=== PATIENT | female | born 1955 | race Caucasian/White ===

== ENCOUNTER 2025-03-23 08:54 | Outpatient (OUT) | payer MEDICARE, SELFPAY ==
--- OUTSIDE RECORDS SUMMARY | 2025-03-23 09:06 | XMS_ITS | Encounter Summary ---
Author Organization [facility] Address [address] [facility] [place] [address] Phone Care Team Providers Care Fiberglass Laminator Name Role Phone Generic Provider, No Assigned Pcp Primary Car e Provider Unavailable Reason for Visit * Reason Comments Med Change Request Encounter Details Date Type Department Care Team (Late st Contact Info) Description 02/25/2025 Refill [facility] [address] [address] [place] [id number] [place] [address] [place], [place] [id number] Renal cell cancer, right (Multi) Social History Tobacco Use Types Packs/Day Years Used Date Smoking Tobacco: Never Smokeless Tobacco: Never Alcohol Use Standard Drinks/Week Comments Not Currently 0 (1 standard drink = 0.6 oz pur e alcohol) [facility] Utilities Answer Date Recorded In the past 12 months has e electric, gas, oil, or water company threatened to shut off services in your home? No 12/19/2024 Humiliation, Afraid, Rape, and Kick questionnair e Answer Date Recorded Within the last year, have y ou been afraid of your partner or ex-partner? No 12/19/2024 Within the last year, have y ou been humiliated or emotionally abused in other ways by your partner or ex-partner? No Within the last year, have y ou been kicked, hit, slapped, or otherwise physically hurt by your partner or ex-partner? No 12/19/2024 Within the last year, have y ou been raped or forced to have any kind of sexual activity by your partner or ex-partner? No 12/19/2024 AUDIT-C Answer Date Recorded Q1: How often do you have a drink containing alcohol? Never 12/18/2024 Q2: How many drinks containi ng alcohol do you have on a typical day when you are drinking? Patient does not drink Q3: How often do you have si x or more drinks on one occasion? Never 12/18/2024 Overall Financial Resource Strain (CARDIA) Answe r Date Recorded How hard is it for you to pa y for the very basics like food, housing, medical care, and heating? Not hard at all 01/28/2025 PHQ-2 Answer Date Recorded Patient Health Questionnaire-2 Score 0 12/18/2024 Hunger Vital Sign Answer Date Recorded Within the past 12 months, y ou worried that your food would run out before you got the money to buy more. Never true 12/20/19 25 Within the past 12 months, t he food you bought just didn't last and you didn't have money to get more. Never true 12/19/2024 PRAPARE - Transportation Answer Date Re corded In the past 12 months, has l ack of transportation kept you from medical appointments or from getting medications? No 09/2024 In the past 12 months, has l ack of transportation kept you from meetings, work, or from getting things needed for daily living? No 01/28/2025 Housing Stability Vital Sign Answer Ebenezer e Recorded In the last 12 months, was t here a time when you were not able to pay the mortgage or rent on time? No 01/28/2025 In the past 12 months, how m any times have you moved where you were living? 0 01/28/2025 At any time in the past 12 m [facility], were you homeless or living in a fpc (including now)? No 01/28/2025 Comments No Sex and Gender Information Value Date Recorded Sex Assigned at Not on file Legal Sex Female 1:40 PM EDT Gender Identity Not on file Sexual Orientation Not on file COVID-19 Exposure Response Date Recorded In the last 10 days, have yo u been in contact with someone who was confirmed or suspected to have Coronavirus/COVID-19? No / Unsure 02/11/2025 10:51 AM EDT documented as of this encounter Plan of Treatment Not on file documented as of this encounter Visit Diagnoses Diagnosis Renal cell cancer, right (Multi) documented in this encounter Care Teams Fiberglass Laminator Relationship Specialty Start Date End Date Generic Provider, No Assigned [facility] [place] [address] PCP - General Pest Control Service Technician 01/25/25 documented as of this encounter
--- OUTSIDE RECORDS SUMMARY | 2025-03-23 09:06 | XMS_ITS | Clinical Summary ---
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 Take before meals. Do not crush, chew, or split. 30 tablet 11 01/28/20 25 Active acetaminophen (Tylenol) 325 mg tabletIndicati ons:Renal cell cancer, right (Multi) Take 2 tablets (650 mg) by mouth every 6 hours. 02/02/20 25 Active Additional Information Patient not taking.Reported on 02/11/2025 polyethylene glycol (Glycolax, Miralax) 17 gram packetIndicati ons:Renal cell cancer, right (Multi) Take 17 g by mouth once daily. 02/03/20 25 Active Additional Information Patient not taking.Reported on 02/11/2025 sennosides-doc usate sodium (Belen-Colace) 8.6-50 mg tabletIndicati ons:Renal cell cancer, right (Multi) Take 2 tablets by mouth 2 times a day. 02/02/20 25 Active Additional Information Patient not taking.Reported on 02/11/2025 enoxaparin (Lovenox) 40 mg/0.4 mL syringeIndicat ions:Renal cell cancer, right (Multi) Inject 0.4 mL (40 mg) under the skin once daily. 21 each 02/03/20 25 Active multivitamin tablet Take 1 tablet by mouth once daily. Active amLODIPine (Norvasc) 10 mg tabletIndicati ons:Renal cell cancer, right (Multi) TAKE 1 TABLET BY MOUTH ONCE DAILY. DO NOT FILL BEFORE FEBRUARY 03, 2025 90 tablet 1 03/15/20 25 Active amLODIPine (Norvasc) 10 mg tabletIndicati ons:Renal cell cancer, right (Multi) Take 1 tablet (10 mg) by mouth once daily. Do not fill before February 03, 2025. 30 tablet 02/04/20 25 025 Discontinued Active Problems Problem Noted Date Diagnosed Date Renal cell cancer, right (Multi) 01/26/2025 Anemia 01/26/2025 Renal cell carcinoma of right kidney 12/23/2024 HTN (hypertension) 12/21/2024 Hyperlipidemia 12/21/2024 Jaundice 12/18/2024 Encounters Date Type Department Care Team Description 03/11/[address] [facility] [address] [place] [address] Linnette Garcia MD 02/25/[address] [facility] [address] [place] [address] Cooper Hagen MD Renal cell cancer, right (Multi) 02/17/2025 Orders Only [facility] [address] [place] [address] Ivonne Bullock LPN Renal cell carcinoma of right kidney (Primary Dx) 02/11/2025 11:00 AM EDT Office Visit [facility] [address] [facility] [address] [place] [phone] Marvin Lopez MD Renal cell cancer, right (Multi) (Primary Dx) 02/11/2025 Travel 01/26/2025 8:45 PM EDT Office Visit [facility] [address] [place] [address] 01/26/2025 7:25 AM EDT Anesthesia [place] [facility] [place] [address] [place] [address] Debra Thacker MD Chedid, Celine, MD 01/26/2025 6:45 AM EDT - 01/26/2025 3:15 PM EDT [place] [facility] [address] [place] [address] Marvin Lopez MD [facility]ipple Procedure, FALCEFORM FLAP [31634 (CPT )] 01/26/2025 5:03 AM EDT - 02/02/2025 12:51 PM EDT Hospital Encounter [facility] [address] [place] [address] Marvin Lopez MD Renal cell cancer, right (Multi) (Primary Dx); Renal cell carcinoma of right kidney (Multi) Discharge Disposition: Home Health Care - Resumed 01/26/2025 Travel 01/25/2025 7:45 AM EDT Pre-Admission Testing [facility] [address] [place] [address] Preoperative examination (Primary Dx); Renal cell carcinoma, unspecified laterality; Abnormal finding of blood chemistry, unspecified 01/25/2025 Travel 01/05/2025 7:28 AM EDT - 01/05/2025 11:59 PM EDT Hospital Encounter [facility] [address] [place] [address] Renal mass; Renal cell carcinoma of right kidney Discharge Disposition: Home 01/05/2025 Travel 01/04/2025 Orders Only [facility] [id number] [place] [phone] Kathe Mccoy MD Hyponatremia 12/29/2024 7:10 AM EDT Tumor Board Conference [facility] [address] [place] [address] [place] [address] 12/24/2024 [facility] [address] [place] [address] Anjali Caro LPN 12/24/2024 [facility] [address] [place] [address] Anjali Caro LPN 12/23/2024 Prep for Procedure [facility] [address] [facility] [place] [address] Marvin Lopez MD Renal cell cancer, right (Multi) (Primary Dx); Renal cell carcinoma of right kidney (Multi) 12/23/2024 Travel 12/21/2024 3:33 PM EDT Anesthesia Event [facility] [address] [place] [address] Kiera Mcnamara MD 12/18/2024 10:04 PM EDT - 12/31/2024 2:34 PM EDT Hospital Encounter [place] [address] [address] [place] [address] Jennifer Reddy MD Bou-Abboud Matta, Carine E, MD Catanzaro, Andrew T, MD Parikh, Melanie, MD Jaundice (Primary Dx); Obstructive jaundice; Renal mass; Renal cell carcinoma of right kidney (Multi); Hyponatremia Discharge Disposition: Home Health Care - New from Last 3 Months Family History Medical History Relation Name Comments No Known Problems Father No Known Problems Mother Heart disease Mother's Sister Relation Name Status Comments Father Mother Mother's Sister Alive Social History Tobacco Use Types Packs/Day Years Used Date Smoking Tobacco: Never Smokeless Tobacco: Never Tobacco Cessation:Counseling Given: Not Answered Alcohol Use Standard Drinks/Week Comments Not Currently 0 (1 standard drink = 0.6 oz pur e alcohol) [facility] Utilities Answer Date Recorded In the past 12 months has e electric, gas, oil, or water Swarm threatened to shut off services in your [...] any time in the past 12 m onths, were you homeless or living in a halfway (including now)? No 01/28/2025 Comments No Sex and Gender Information Value Date Recorded Sex Assigned at Not on file Legal Sex Female 1:40 PM EDT Gender Identity Not on file Sexual Orientation Not on file Last Filed Vital Signs Vital Sign Reading Time Taken Comments Blood Pressure 138/79 02/11/2025 11:08 AM EDT Pulse 90 02/11/2025 11:08 AM EDT Temperature 36.6 C (97.9 F) 02/11/2025 11:08 AM EDT Respiratory Rate 16 02/11/2025 11:08 AM EDT Oxygen Saturation 97% 02/11/2025 11:08 AM EDT Inhaled Oxygen Concentration - - Weight 76.3 kg (168 lb 3.4 oz) 02/11/2025 11:08 AM EDT Height 167.6 cm (5' 5.98 ) 01/26/2025 5:47 AM ED T Body Mass Index 27.16 01/26/2025 5:47 AM EDT Plan of Treatment Health Maintenance Due Date Last Done Comments Bone Density Scan 1956 CT Colonography 1956 FIT-DNA (Cologuard) 1956 FIT 1956 Lipid Panel 1955 Medicare Annual Wellness Visit (AWV) 1955 Sigmoidoscopy 1956 Hepatitis C Screening 1974 DTaP/Tdap/Td Vaccines (1 - Tdap) 1978 Mammogram 1996 Pneumococcal Vaccine (1 of 1 - PCV) 2006 Zoster Vaccines (1 of 2) 2006 Colonoscopy 07/29/2023 07/29/2013 Colorectal Cancer Screening 07/29/2023 COVID-19 Vaccine ( season) 2025 07/24/2024, 07/28/2023, 06/26/2022, Additional history exists Diabetes Screening 02/03/2028 02/02/2025, 0 02/01/2025, 01/31/2025, Additional history exists RSV High Risk: (Elderly (60+) or Population) (1 - 1-dose 75+ series) 2031 Influenza Vaccine Completed 07/15/2024, , 06/20/2022, Additional history exists HIB Vaccines Aged Out No longer eligi ble based on patient's age to complete this topic HPV Vaccines Aged Out No longer eligi ble based on patient's age to complete this topic Hepatitis A Vaccines Aged Out No long er eligible based on patient's age to complete this topic Hepatitis B Vaccines Aged Out No long er eligible based on patient's age to complete this topic IPV Vaccines Aged Out No longer eligi ble based on patient's age to complete this topic Meningococcal Vaccine Aged Out No [facility] eligible based on patient's age to complete this topic Rotavirus Vaccines Aged Out No longer eligible based on patient's age to complete this topic Medical Devices Implanted Type Area Ring Maker Device Identifier Shelf Expiration Date Model / Serial / Lot Stent, Flexi, Pancreatic, Single Pigtail, 7fr X 7cm, W/Flange - [id number] Implanted:Qty: 1 on 01/26/2025 by Marvin Lopez MD at [facility] Stent N/A: Pancreas [employer] [id number] 06/29/2029 [id number] / / [id number] Procedures Procedure Name Priority Date/Time Associated Diagnosis Comments MAGNESIUM Routine 02/02/2025 6:34 AM EDT COMPREHENSIVE METABOLIC PANEL Routine 02/02/2025 6:34 AM EDT CBC Routine 02/02/2025 6:34 AM EDT MAGNESIUM Routine 02/01/2025 6:25 AM EDT COMPREHENSIVE METABOLIC PANEL Routine 02/01/2025 6:25 AM EDT CBC Routine 02/01/2025 6:25 AM EDT AMYLASE, FLUID Routine 01/31/2025 7:58 PM EDT AMYLASE, FLUID Routine 01/31/2025 7:58 PM EDT POCT GLUCOSE Routine 01/31/2025 7:50 PM EDT POCT GLUCOSE Routine 01/31/2025 3:58 PM EDT POCT GLUCOSE Routine 01/31/2025 11:59 AM EDT POCT GLUCOSE Routine 01/31/2025 9:12 AM EDT MAGNESIUM Routine 01/31/2025 8:00 AM EDT COMPREHENSIVE METABOLIC PANEL Routine 01/31/2025 8:00 AM EDT CBC Routine 01/31/2025 8:00 AM EDT POCT GLUCOSE Routine 01/31/2025 3:38 AM EDT POCT GLUCOSE Routine 01/30/2025 11:24 PM EDT AMYLASE, FLUID Routine 01/30/2025 11:13 PM EDT AMYLASE, FLUID Routine 01/30/2025 11:13 PM EDT POCT GLUCOSE Routine 01/30/2025 9:54 PM EDT POCT GLUCOSE Routine 01/30/2025 3:23 PM EDT POCT GLUCOSE Routine 01/30/2025 11:43 AM EDT POCT GLUCOSE Routine 01/30/2025 8:29 AM EDT MAGNESIUM Routine 01/30/2025 6:36 AM EDT COMPREHENSIVE METABOLIC PANEL Routine 01/30/2025 6:36 AM EDT CBC Routine 01/30/2025 6:36 AM EDT POCT GLUCOSE Routine 01/30/2025 3:57 AM EDT POCT GLUCOSE Routine 01/29/2025 9:08 PM EDT POCT GLUCOSE Routine 01/29/2025 5:40 PM EDT POCT GLUCOSE Routine 01/29/2025 4:28 PM EDT POCT GLUCOSE Routine 01/29/2025 12:48 PM EDT POCT GLUCOSE Routine 01/29/2025 8:37 AM EDT MAGNESIUM Routine 01/29/2025 6:29 AM EDT COMPREHENSIVE METABOLIC PANEL Routine 01/29/2025 6:29 AM EDT CBC Routine 01/29/2025 6:29 AM EDT POCT GLUCOSE Routine 01/29/2025 4:15 AM EDT POCT GLUCOSE Routine 01/29/2025 12:11 AM EDT CBC Routine 01/28/2025 7:12 PM EDT POCT GLUCOSE Routine 01/28/2025 7:06 PM EDT POCT GLUCOSE Routine 01/28/2025 6:26 PM EDT POCT GLUCOSE Routine 01/28/2025 4:43 PM EDT POCT GLUCOSE Routine 01/28/2025 12:29 PM EDT TRANSFUSE RED BLOOD CELLS Routine 01/28/2025 11:11 AM EDT POCT GLUCOSE Routine 01/28/2025 8:30 AM EDT BASIC METABOLIC PANEL Routine 01/28/2025 6:31 AM EDT PHOSPHORUS Routine 01/28/2025 6:31 AM EDT MAGNESIUM Routine 01/28/2025 6:31 AM EDT HEPATIC FUNCTION PANEL Routine 01/28/2025 6:31 AM EDT CBC Routine 01/28/2025 6:31 AM EDT POCT GLUCOSE Routine 01/28/2025 5:13 AM EDT POCT GLUCOSE Routine 01/27/2025 10:16 PM EDT POCT GLUCOSE Routine 01/27/2025 5:15 PM EDT POCT GLUCOSE Routine 01/27/2025 12:55 PM EDT POCT GLUCOSE Routine 01/27/2025 7:28 AM EDT BLOOD GAS VENOUS FULL PANEL STAT 01/27/2025 6:03 AM EDT POCT GLUCOSE Routine 01/27/2025 3:40 AM EDT BLOOD GAS ARTERIAL FULL PANEL Timed 01/27/2025 2:12 AM EDT PHOSPHORUS Timed 01/27/2025 2:07 AM EDT BASIC METABOLIC PANEL Timed 01/27/2025 2:07 AM EDT LIPASE Timed 01/27/2025 2:07 AM EDT AMYLASE Timed 01/27/2025 2:07 AM EDT HEPATIC FUNCTION PANEL Timed 01/27/2025 2:07 AM EDT CBC Timed 01/27/2025 2:07 AM EDT COAGULATION SCREEN Timed 01/27/2025 2: 07 AM EDT CALCIUM, IONIZED Timed 01/27/2025 2:07 AM EDT MAGNESIUM Timed 01/27/2025 2:07 AM EDT POCT GLUCOSE Routine 01/26/2025 11:59 PM EDT TROPONIN I, HIGH SENSITIVITY Routine 01/26/2025 9:28 PM EDT ECG 12-LEAD Routine 01/26/2025 8:45 PM EDT POCT GLUCOSE Routine 01/26/2025 7:22 PM EDT XR CHEST 1 VIEW STAT 01/26/2025 6:36 PM EDT BLOOD GAS ARTERIAL FULL PANEL Timed 01/26/2025 6:05 PM EDT PHOSPHORUS Timed 01/26/2025 6:04 PM EDT BASIC METABOLIC PANEL Timed 01/26/2025 6:04 PM EDT MAGNESIUM Timed 01/26/2025 6:04 PM EDT LIPASE Timed 01/26/2025 6:04 PM EDT HEPATIC FUNCTION PANEL Timed 01/26/2025 6:04 PM EDT COAGULATION SCREEN Timed 01/26/2025 6: 04 PM EDT CBC Timed 01/26/2025 6:04 PM EDT CALCIUM, IONIZED Timed 01/26/2025 6:04 PM EDT AMYLASE Timed 01/26/2025 6:04 PM EDT PULSE OXIMETRY, CONTINUOUS Routine 01/26/2025 6:02 PM EDT POCT GLUCOSE Routine 01/26/2025 5:56 PM EDT COOX PANEL, ARTERIAL UNSOLICITED Routine 01/26/2025 4:55 PM EDT BLOOD GAS ARTERIAL FULL PANEL UNSOLICITED Routine 01/26/2025 4:55 PM EDT BLOOD GAS ARTERIAL FULL PANEL STAT 01/26/2025 3:18 PM EDT TRANSFUSE RED BLOOD CELLS Routine 01/26/2025 2:45 PM EDT BLOOD GAS ARTERIAL FULL PANEL STAT 01/26/2025 2:29 PM EDT BLOOD GAS ARTERIAL FULL PANEL STAT 01/26/2025 1:44 PM EDT COOX PANEL, ARTERIAL UNSOLICITED Routine 01/26/2025 1:15 PM EDT BLOOD GAS ARTERIAL FULL PANEL UNSOLICITED Routine 01/26/2025 1:15 PM EDT TRANSFUSE RED BLOOD CELLS Routine 01/26/2025 1:14 PM EDT STERILE FLUID CULTURE/SMEAR Routine 01/26/2025 12:20 PM EDT Renal cell carcinoma of right kidney COOX PANEL, ARTERIAL UNSOLICITED Routine 01/26/2025 12:14 PM EDT BLOOD GAS ARTERIAL FULL PANEL UNSOLICITED Routine 01/26/2025 12:14 PM EDT BLOOD GAS ARTERIAL FULL PANEL STAT 01/26/2025 11:08 AM EDT TRANSFUSE RED BLOOD CELLS Routine 01/26/2025 10:26 AM EDT SURGICAL PATHOLOGY EXAM Routine 01/26/2025 10:24 AM EDT Renal cell carcinoma of right kidney COOX PANEL, ARTERIAL UNSOLICITED Routine 01/26/2025 10:16 AM EDT BLOOD GAS ARTERIAL FULL PANEL UNSOLICITED Routine 01/26/2025 10:16 AM EDT BLOOD GAS ARTERIAL FULL PANEL STAT 01/26/2025 9:11 AM EDT CHG US VASC ACCESS SITS VSL PATENCY NDL ENTRY Routine 01/26/2025 8:10 AM EDT AZ AN CENTRAL LINE DOUBLE LUMEN Routine 01/26/2025 8:10 AM EDT ANESTHESIA PERIPHERAL IV PLACEMENT Routine 01/26/2025 7:57 AM EDT ANESTHESIA ARTERIAL LINE PLACEMENT Routine 01/26/2025 7:52 AM EDT AZ AN ELECTIVE ENDOTRACHEAL AIRWAY Routine 01/26/2025 7:44 AM EDT PREPARE RBC STAT 01/26/2025 7:00 AM EDT AZ NEPHRECTOMY W/PRTL URETERECT OPN RIB RESCJ COMPL 01/26/2025 6:55 AM EDT Renal cell carcinoma of right kidney AZ ABDL LMPHADEC REG CELIAC GSTR PORTAL PRIPNCRTC 01/26/2025 6:55 AM EDT Renal cell carcinoma of right kidney AZ PNCRTECT PROX STOT W/PANCREATOJEJUNOSTO MY 01/26/2025 6:55 AM EDT Renal cell carcinoma of right kidney AZ AN CONTINUOUS PERIPHERAL CATHETER LDA PLACEMENT Routine 01/26/2025 6:24 AM EDT ANESTHESIA PERIPHERAL BLOCK Routine 01/26/2025 6:24 AM EDT TYPE AND SCREEN STAT 01/25/2025 8:02 AM EDT Preoperative examination Renal cell carcinoma, unspecified laterality HEMOGLOBIN A1C Routine 01/25/2025 8:02 AM EDT Preoperative examination Renal cell carcinoma, unspecified laterality Abnormal finding of blood chemistry, unspecified BASIC METABOLIC PANEL Routine 01/25/2025 8:02 AM EDT Preoperative examination Renal cell carcinoma, unspecified laterality CBC Routine 01/25/2025 8:02 AM EDT Preoperative examination Renal cell carcinoma, unspecified laterality US GUIDED PERCUTANEOUS BIOPSY RENAL RIGHT STAT 01/05/2025 9:54 AM EDT Renal mass Renal cell carcinoma of right kidney SURGICAL PATHOLOGY EXAM Routine 01/05/2025 9:21 AM EDT Renal mass Renal cell carcinoma of right kidney TYPE AND SCREEN Pending Discharge 12/31/2024 11:46 AM EDT MANUAL DIFFERENTIAL Pending Discharge 12/31/2024 7:31 AM EDT BASIC METABOLIC PANEL Pending Discharge 12/31/2024 7:31 AM EDT PHOSPHORUS Pending Discharge 12/31/2024 7:3 1 AM EDT COAGULATION SCREEN Pending Discharge 12/31/2024 7:31 AM EDT HEPATIC FUNCTION PANEL Pending Discharge 12/31/2024 7:31 AM EDT CBC WITH AUTO DIFFERENTIAL Pending Discharge 12/31/2024 7:31 AM EDT MAGNESIUM Pending Discharge 12/31/2024 7:3 1 AM EDT BASIC METABOLIC PANEL Routine 12/30/2024 6:35 AM EDT PHOSPHORUS Routine 12/30/2024 6:35 AM EDT COAGULATION SCREEN Routine 12/30/2024 6: 35 AM EDT HEPATIC FUNCTION PANEL Routine 12/30/2024 6:35 AM EDT CBC WITH AUTO DIFFERENTIAL Routine 12/30/2024 6:35 AM EDT MAGNESIUM Routine 12/30/2024 6:35 AM EDT BASIC METABOLIC PANEL Routine 12/29/2024 6:56 AM EDT PHOSPHORUS Routine 12/29/2024 6:56 AM EDT COAGULATION SCREEN Routine 12/29/2024 6: 56 AM EDT HEPATIC FUNCTION PANEL Routine 12/29/2024 6:56 AM EDT CBC WITH AUTO DIFFERENTIAL Routine 12/29/2024 6:56 AM EDT MAGNESIUM Routine 12/29/2024 6:56 AM EDT TYPE AND SCREEN Timed 12/28/2024 12:02 PM EDT IR BILIARY DRAIN Routine 12/28/2024 10:02 AM EDT COAGULATION SCREEN Routine 12/28/2024 6: 53 AM EDT CBC WITH AUTO DIFFERENTIAL Routine 12/28/2024 6:53 AM EDT BASIC METABOLIC PANEL Routine 12/28/2024 6:51 AM EDT PHOSPHORUS Routine 12/28/2024 6:51 AM EDT HEPATIC FUNCTION PANEL Routine 12/28/2024 6:51 AM EDT MAGNESIUM Routine 12/28/2024 6:51 AM EDT BASIC METABOLIC PANEL Routine 12/27/2024 6:33 AM EDT PHOSPHORUS Routine 12/27/2024 6:33 AM EDT COAGULATION SCREEN Routine 12/27/2024 6: 33 AM EDT HEPATIC FUNCTION PANEL Routine 12/27/2024 6:33 AM EDT CBC WITH AUTO DIFFERENTIAL Routine 12/27/2024 6:33 AM EDT MAGNESIUM Routine 12/27/2024 6:33 AM EDT BASIC METABOLIC PANEL Routine 12/26/2024 7:04 AM EDT PHOSPHORUS Routine 12/26/2024 7:04 AM EDT COAGULATION SCREEN Routine 12/26/2024 7: 04 AM EDT HEPATIC FUNCTION PANEL Routine 12/26/2024 7:04 AM EDT CBC WITH AUTO DIFFERENTIAL Routine 12/26/2024 7:04 AM EDT MAGNESIUM Routine 12/26/2024 7:04 AM EDT XR CHEST 1 VIEW STAT 12/25/2024 1:19 PM EDT BLOOD GAS VENOUS FULL PANEL STAT 12/25/2024 12:28 PM EDT BLOOD CULTURE STAT 12/25/2024 12:28 PM EDT BLOOD CULTURE STAT 12/25/2024 12:28 PM EDT URINALYSIS MICROSCOPIC WITH REFLEX CULTURE Pending Discharge 12/25/2024 12:04 PM EDT EXTRA URINE OH TUBE Pending Discharge 12/25/2024 12:04 PM EDT URINALYSIS WITH REFLEX MICROSCOPIC AND CULTURE Pending Discharge 12/25/2024 12:04 PM EDT URINALYSIS WITH REFLEX MICROSCOPIC AND CULTURE Routine 12/25/2024 12:04 PM EDT EGD Routine 12/25/2024 9:42 AM EDT Obstructive jaundice Renal mass TYPE AND SCREEN Pending Discharge 12/25/2024 8:2 8 AM EDT BASIC METABOLIC PANEL Pending Discharge 12/25/2024 8:28 AM EDT COAGULATION SCREEN Pending Discharge 12/25/2024 8:28 AM EDT HEPATIC FUNCTION PANEL Pending Discharge 12/25/2024 8:28 AM EDT CBC WITH AUTO DIFFERENTIAL Pending Discharge 12/25/2024 8:28 AM EDT MAGNESIUM Pending Discharge 12/25/2024 8:2 8 AM EDT XR HIP RIGHT WITH PELVIS WHEN PERFORMED 2 OR 3 VIEWS STAT 12/25/2024 7:08 AM EDT ECG 12-LEAD Routine 12/24/2024 8:55 AM EDT BASIC METABOLIC PANEL Pending Discharge 12/24/2024 7:23 AM EDT PHOSPHORUS Pending Discharge 12/24/2024 7:2 3 AM EDT COAGULATION SCREEN Pending Discharge 12/24/2024 7:23 AM EDT HEPATIC FUNCTION PANEL Pending Discharge 12/24/2024 7:23 AM EDT CBC WITH AUTO DIFFERENTIAL Pending Discharge 12/24/2024 7:23 AM EDT MAGNESIUM Pending Discharge 12/24/2024 7:2 3 AM EDT IR BILIARY DRAIN Routine 12/23/2024 9:05 AM EDT BASIC METABOLIC PANEL Routine 12/23/2024 6:13 AM EDT PHOSPHORUS Routine 12/23/2024 6:13 AM EDT COAGULATION SCREEN Routine 12/23/2024 6: 13 AM EDT HEPATIC FUNCTION PANEL Routine 12/23/2024 6:13 AM EDT CBC WITH AUTO DIFFERENTIAL Routine 12/23/2024 6:13 AM EDT MAGNESIUM Routine 12/23/2024 6:13 AM EDT TYPE AND SCREEN Timed 12/22/2024 11:40 AM EDT MR KIDNEY W AND WO IV CONTRAST Priority Discharge or Observation 12/22/2024 9:19 AM EDT BASIC METABOLIC PANEL Routine 12/22/2024 6:25 AM EDT PHOSPHORUS Routine 12/22/2024 6:25 AM EDT COAGULATION SCREEN Routine 12/22/2024 6: 25 AM EDT HEPATIC FUNCTION PANEL Routine 12/22/2024 6:25 AM EDT CBC WITH AUTO DIFFERENTIAL Routine 12/22/2024 6:25 AM EDT MAGNESIUM Routine 12/22/2024 6:25 AM EDT EGD Routine 12/21/2024 5:32 PM EDT Obstructive jaundice Renal mass ERCP Routine 12/21/2024 4:22 PM EDT Jaundice Obstructive jaundice Renal mass SURGICAL PATHOLOGY EXAM Routine 12/21/2024 3:50 PM EDT Jaundice Obstructive jaundice Renal mass AZ AN ELECTIVE ENDOTRACHEAL AIRWAY Routine 12/21/2024 3:[address] INTERPRETATION OF OUTSIDE FILMS Routine 12/21/2024 1:14 PM EDT BASIC METABOLIC PANEL Routine 12/21/2024 8:38 AM EDT PHOSPHORUS Routine 12/21/2024 8:38 AM EDT COAGULATION SCREEN Routine 12/21/2024 8: 38 AM EDT HEPATIC FUNCTION PANEL Routine 12/21/2024 8:38 AM EDT CBC WITH AUTO DIFFERENTIAL Routine 12/21/2024 8:38 AM EDT MAGNESIUM Routine 12/21/2024 8:38 AM EDT from Last 3 Months Results * (ABNORMAL) CBC (02/02/2025 6:34 AM EDT) Only the most recent of10 resultswithin the time period is included. WBC 6.8 4.4 - 11.3 x10*3/uL LAB HEMATOLOGY METHOD 02/02/2025 7:50 AM EDT [facility] nRBC 0.0 0.0 - 0.0 /100 WBCs LAB HEMATOLOGY METHOD 02/02/2025 7:50 AM EDT [facility] RBC 3.54(L) 4.00 - 5.20 x10*6/uL LAB HEMATOLOGY METHOD 02/02/2025 7:50 AM EDT [facility] Hemoglobin 9.1(L) 12.0 - 16.0 g/dL LAB HEMATOLOGY METHOD 02/02/2025 7:50 AM EDT [facility] Hematocrit 30.2(L) 36.0 - 46.0 % LAB HEMATOLOGY METHOD 02/02/2025 7:50 AM EDT [facility] MCV 85 80 - 100 fL LAB HEMATOLOGY METHOD 02/02/2025 7:50 AM EDT [facility] MCH 25.7(L) 26.0 - 34.0 pg LAB HEMATOLOGY METHOD 02/02/2025 7:50 AM EDT [facility] MCHC 30.1(L) 32.0 - 36.0 g/dL LAB HEMATOLOGY METHOD 02/02/2025 7:50 AM EDT [facility] RDW 15.8(H) 11.5 - 14.5 % LAB HEMATOLOGY METHOD 02/02/2025 7:50 AM EDT [facility] Platelets 256 150 - 450 x10*3/uL LAB HEMATOLOGY METHOD 02/02/2025 7:50 AM EDT [facility] Blood Venous blood specimen / Unknown Venipuncture / Unknown 02/02/2025 6:34 AM EDT 02/02/2025 7:21 AM EDT Marvin Lopez MD LAB BLOOD ORDERABLES Final Resu lt Performing Organization Address City/[facility]/ZIP Co de Phone Number [facility] [address] [place] [address] * Magnesium (02/02/2025 6:34 AM EDT) Only the most recent of19 resultswithin the time period is included. Magnesium 2.02 1.60 - 2.40 mg/dL LAB CHEMISTRY METHOD 02/02/2025 8:04 AM EDT [facility] Blood Venous blood specimen / Unknown Venipuncture / Unknown 02/02/2025 6:34 AM EDT 02/02/2025 7:29 AM EDT Marvin Lopez MD LAB BLOOD ORDERABLES Final Resu lt Performing Organization Address City/[facility]/ZIP Co de Phone Number [facility] [address] [place], [place] [id number] * (ABNORMAL) Comprehensive Metabolic Panel (02/02/2025 6:34 AM EDT) Only the most recent of5 resultswithin the time period is included. Glucose 94 74 - 99 mg/dL LAB CHEMISTRY METHOD 02/02/2025 8:04 AM EDT [facility] Sodium 137 136 - 145 mmol/L LAB CHEMISTRY METHOD 02/02/2025 8:04 AM EDT [facility] Potassium 3.7 3.5 - 5.3 mmol/L LAB CHEMISTRY METHOD 02/02/2025 8:04 AM EDT [facility] Chloride 104 98 - 107 mmol/L LAB CHEMISTRY METHOD 02/02/2025 8:04 AM EDT [facility] Bicarbonate 24 21 - 32 mmol/L LAB CHEMISTRY METHOD 02/02/2025 8:04 AM EDT [facility] Anion Gap 13 10 - 20 mmol/L LAB CHEMISTRY METHOD 02/02/2025 8:04 AM EDT [facility] Urea Nitrogen 11 6 - 23 mg/dL LAB CHEMISTRY METHOD 02/02/2025 8:04 AM EDT [facility] Creatinine 1.06(H) 0.50 - 1.05 mg/dL LAB CHEMISTRY METHOD 02/02/2025 8:04 AM [facility] eGFR 57(L) >60 mL/min/1. 73m*2 LAB CHEMISTRY METHOD 02/02/2025 8:04 AM [facility] Comment: Calculations of estimated GFR are performed using the 2020 CKD-EPI Study Refit equation without the race variable for the IDMS-Traceable creatinine methods. https://jasn.asnjournals.org/content/early//ASN.0367625482 Calcium 8.3(L) 8.6 - 10.6 mg/dL LAB CHEMISTRY METHOD 02/02[facility]2025 8:[facility] Albumin 3.1(L) 3.4 - 5.0 g/dL LAB CHEMISTRY METHOD 02/02/2025 8:[facility] Alkaline Phosphatase 70 33 - 136 U/L LAB CHEMISTRY METHOD 02[facility]02[facility]2025 8:[facility] Total Protein 5.6(L) 6.4 - 8.2 g/dL LAB CHEMISTRY METHOD 02/02/2025 8:04 AM EDT [facility] AST 16 9 - 39 U/L LAB CHEMISTRY METHOD 02/02/2025 8:[facility] Bilirubin, Total 0.7 0.0 - 1.2 mg/dL LAB CHEMISTRY METHOD 02/02/2025 8:04 AM EDT [facility] ALT 17 7 - 45 U/L LAB CHEMISTRY METHOD 02/02/2025 8:[facility] Comment:Patients treated wit h Sulfasalazine may generate falsely decreased results for ALT. Blood Venous blood specimen / Unknown Venipuncture / Unknown 02/02/2025 6:34 AM EDT 02/02/2025 7:29 AM EDT Marvin Lopez MD LAB BLOOD ORDERABLES Final Resu lt Performing Organization Address [facility] Co de Phone Number [facility] [id number] [place], [place] [phone] * Amylase, Body Fluid (01/31/2025 7:58 PM EDT) Only the most recent of2 resultswithin the time period is included. Pathologist [facility] Amylase, Fluid <10 Not establishe d. U/L LAB CHEMISTRY METHOD 01/31/2025 9:32 PM EDT [facility] Drain fluid Body fluid specimen obtained via Mal-Urban drain / Unknown Non-blood Collection / Unknown 01/31/2025 7:58 PM EDT 01/31/2025 9:10 PM EDT Narrative [facility] - 01/31/2025 9:32 PM EDT The performance characteristics of this test have been validated on peritoneal/ascites,pleural, pericardial, drain, and liver/pancreatic cyst fluid by the [facility] laboratory. This test has not been approved by the FDA; however, such approval is not necessary. Marvin Lopez MD LAB BODY FLUIDS AND STOOLS ORDE RABLES Final Result Performing Organization Address [facility] de Phone Number [facility] [id number] [place] [phone] * (ABNORMAL) POCT GLUCOSE (01/31/2025 7:50 PM EDT) POCT Glucose 101(H) 74 - 99 mg/dL 01/31/2025 8:12 PM EDT [facility] Blood Capillary blood specimen / Unknown 01/31/2025 7:50 PM EDT 01/31/2025 8:12 PM EDT Marvin Lopez MD LAB POINT OF CARE TE ST DOCKED DEVICE UNSOLICITED RESULTS Final Result Performing Organization Address [facility] Co de Phone Number [facility] [address] [place] [phone] * (ABNORMAL) POCT GLUCOSE (01/31/2025 3:58 PM EDT) POCT Glucose 104(H) 74 - 99 mg/dL 01/31/2025 4:00 PM EDT [facility] Blood Capillary blood specimen / Unknown 01/31/2025 3:58 PM EDT 01/31/2025 4:00 PM EDT us Marvin Lopez MD LAB POINT OF CARE TE ST DOCKED DEVICE UNSOLICITED RESULTS Final Result Performing Organization Address [facility] Co de Phone Number [facility] [address] [place] [phone] * (ABNORMAL) POCT GLUCOSE (01/31/2025 11:59 AM EDT) POCT Glucose 101(H) 74 - 99 mg/dL 01/31/2025 12:02 PM EDT [facility] Blood Capillary blood specimen / Unknown 01/31/2025 11:59 AM EDT 01/31/2025 12:02 PM EDT us Marvin Lopez MD LAB POINT OF CARE TE ST DOCKED DEVICE UNSOLICITED RESULTS Final Result Performing Organization Address [facility] Co de Phone Number [facility] [address] [place] [address] [phone] * (ABNORMAL) POCT GLUCOSE (01/31/2025 9:12 AM EDT) POCT Glucose 124(H) 74 - 99 mg/dL 01/31/2025 9:14 AM EDT [facility] Blood Capillary blood specimen / Unknown 01/31/2025 9:12 AM EDT 01/31/2025 9:14 AM EDT us Marvin Lopez MD LAB POINT OF CARE TE ST DOCKED DEVICE UNSOLICITED RESULTS Final Result Performing Organization Address [facility] Co de Phone Number [facility] [address] [place] [address] [phone] * (ABNORMAL) POCT GLUCOSE (01/31/2025 3:38 AM EDT) POCT Glucose 100(H) 74 - 99 mg/dL 01/31/2025 3:39 AM EDT [facility] Blood Capillary blood specimen / Unknown 01/31/2025 3:38 AM EDT 01/31/2025 3:39 AM EDT us Marvin Lopez MD LAB POINT OF CARE TE ST DOCKED DEVICE UNSOLICITED RESULTS Final Result Performing Organization Address [facility] Co de Phone Number [facility] [address] [place] [address] [phone] * (ABNORMAL) POCT GLUCOSE (01/30/2025 11:24 PM EDT) POCT Glucose 104(H) 74 - 99 mg/dL 01/30/2025 11:26 PM EDT [facility] Blood Capillary blood specimen / Unknown 01/30/2025 11:24 PM EDT 01/30/2025 11:26 PM EDT us Marvin Lopez MD LAB POINT OF CARE TE ST DOCKED DEVICE UNSOLICITED RESULTS Final Result Performing Organization Address [facility] Co de Phone Number [facility] [address] [place] [address] [phone] * (ABNORMAL) POCT GLUCOSE (01/30/2025 9:54 PM EDT) POCT Glucose 108(H) 74 - 99 mg/dL 01/30/2025 9:56 PM EDT [facility] Blood Capillary blood specimen / Unknown 01/30/2025 9:54 PM EDT 01/30/2025 9:56 PM EDT us Marvin Lopez MD LAB POINT OF CARE TE ST DOCKED DEVICE UNSOLICITED RESULTS Final Result Performing Organization Address [facility]/ZIP Co de Phone Number [facility] [id number] [place] [phone] * (ABNORMAL) POCT GLUCOSE (01/30/2025 3:23 PM EDT) POCT Glucose 124(H) 74 - 99 mg/dL 01/30/2025 3:25 PM EDT [facility] Blood Capillary blood specimen / Unknown 01/30/2025 3:23 PM EDT 01/30/2025 3:25 PM EDT us Marvin Lopez MD LAB POINT OF CARE TE ST DOCKED DEVICE UNSOLICITED RESULTS Final Result Performing Organization Address [facility]/ZIP Co de Phone Number [facility] [id number] [place] [phone] * (ABNORMAL) POCT GLUCOSE (01/30/2025 11:43 AM EDT) POCT Glucose 122(H) 74 - 99 mg/dL 01/30/2025 11:59 AM EDT [facility] Blood Capillary blood specimen / Unknown 01/30/2025 11:43 AM EDT 01/30/2025 11:59 AM EDT us Marvin Lopez MD LAB POINT OF CARE TE ST DOCKED DEVICE UNSOLICITED RESULTS Final Result Performing Organization Address [facility]/ZIP Co de Phone Number [facility] [address] [address] * (ABNORMAL) POCT GLUCOSE (01/30/2025 8:29 AM EDT) POCT Glucose 108(H) 74 - 99 mg/dL 01/30/2025 8:31 AM EDT [facility] Blood Capillary blood specimen / Unknown 01/30/2025 8:29 AM EDT 01/30/2025 8:31 AM EDT us Marvin Lopez MD LAB POINT OF CARE TE ST DOCKED DEVICE UNSOLICITED RESULTS Final Result Performing Organization Address [facility]/ZIP Co de Phone Number [facility] [id number] [place] [phone] * POCT GLUCOSE (01/30/2025 3:57 AM EDT) POCT Glucose 94 74 - 99 mg/dL 01/30/2025 4:00 AM EDT [facility] Blood Capillary blood specimen / Unknown 01/30/2025 3:57 AM EDT 01/30/2025 4:00 AM EDT Marvin Lopez MD LAB POINT OF CARE TE ST DOCKED DEVICE UNSOLICITED RESULTS Final Result Performing Organization Address [facility] Co de Phone Number [facility] [address] [place] [phone] * (ABNORMAL) POCT GLUCOSE (01/29/2025 9:08 PM EDT) POCT Glucose 110(H) 74 - 99 mg/dL 01/29/2025 9:09 PM EDT [facility] Blood Capillary blood specimen / Unknown 01/29/2025 9:08 PM EDT 01/29/2025 9:09 PM EDT us Marvin Lopez MD LAB POINT OF CARE TE ST DOCKED DEVICE UNSOLICITED RESULTS Final Result Performing Organization Address [facility] Co de Phone Number [facility] [id number] [place] [address]74 * POCT GLUCOSE (01/29/2025 5:40 PM EDT) POCT Glucose 92 74 - 99 mg/dL 01/29/2025 5:46 PM EDT [facility] Blood Capillary blood specimen / Unknown 01/29/2025 5:40 PM EDT 01/29/2025 5:46 PM EDT us Marvin Lopez MD LAB POINT OF CARE TE ST DOCKED DEVICE UNSOLICITED RESULTS Final Result Performing Organization Address [facility]/ZIP Co de Phone Number [facility] [id number] [place] [phone] * POCT GLUCOSE (01/29/2025 4:28 PM EDT) POCT Glucose 75 74 - 99 mg/dL 01/29/2025 4:30 PM EDT [facility] Blood Capillary blood specimen / Unknown 01/29/2025 4:28 PM EDT 01/29/2025 4:30 PM EDT us Marvin Lopez MD LAB POINT OF CARE TE ST DOCKED DEVICE UNSOLICITED RESULTS Final Result Performing Organization Address [facility] de Phone Number [facility] [address] [place] [address] [phone] * (ABNORMAL) POCT GLUCOSE (01/29/2025 12:48 PM EDT) POCT Glucose 103(H) 74 - 99 mg/dL 01/29/2025 12:51 PM EDT [facility] Blood Capillary blood specimen / Unknown 01/29/2025 12:48 PM EDT 01/29/2025 12:51 PM EDT us Marvin Lopez MD LAB POINT OF CARE TE ST DOCKED DEVICE UNSOLICITED RESULTS Final Result Performing Organization Address [facility] Co de Phone Number [facility] [id number] [place] [address] [phone] * (ABNORMAL) POCT GLUCOSE (01/29/2025 8:37 AM EDT) POCT Glucose 101(H) 74 - 99 mg/dL 01/29/2025 9:03 AM EDT [facility] Blood Capillary blood specimen / Unknown 01/29/2025 8:37 AM EDT 01/29/2025 9:03 AM EDT Marvin Lopez MD LAB POINT OF CARE TE ST DOCKED DEVICE UNSOLICITED RESULTS Final Result Performing Organization Address [facility]/ZIP Co de Phone Number [facility] [address] [address] * (ABNORMAL) POCT GLUCOSE (01/29/2025 4:15 AM EDT) POCT Glucose 106(H) 74 - 99 mg/dL 01/29/2025 4:17 AM EDT [facility] Blood Capillary blood specimen / Unknown 01/29/2025 4:15 AM EDT 01/29/2025 4:17 AM EDT us Marvin Lopez MD LAB POINT OF CARE TE ST DOCKED DEVICE UNSOLICITED RESULTS Final Result Performing Organization Address [facility]/ZIP Co de Phone Number [facility] [id number] [place] [phone] * POCT GLUCOSE (01/29/2025 12:11 AM EDT) POCT Glucose 94 74 - 99 mg/dL 01/29/2025 12:13 AM EDT [facility] Blood Capillary blood specimen / Unknown 01/29/2025 12:11 AM EDT 01/29/2025 12:13 AM EDT us Marvin Lopez MD LAB POINT OF CARE TE ST DOCKED DEVICE UNSOLICITED RESULTS Final Result Performing Organization Address [facility]/ZIP Co de Phone Number [facility] [address] [address] * POCT GLUCOSE (01/28/2025 7:06 PM EDT) POCT Glucose 83 74 - 99 mg/dL 01/28/2025 7:41 PM EDT [facility] Blood Capillary blood specimen / Unknown 01/28/2025 7:06 PM EDT 01/28/2025 7:41 PM EDT us Marvin Lopez MD LAB POINT OF CARE TE ST DOCKED DEVICE UNSOLICITED RESULTS Final Result Performing Organization Address [facility]/ZIP Co de Phone Number [facility] [address] [address] * POCT GLUCOSE (01/28/2025 6:26 PM EDT) POCT Glucose 89 74 - 99 mg/dL 01/28/2025 6:29 PM EDT [facility] Blood Capillary blood specimen / Unknown 01/28/2025 6:26 PM EDT 01/28/2025 6:29 PM EDT us Marvin Lopez MD LAB POINT OF CARE TE ST DOCKED DEVICE UNSOLICITED RESULTS Final Result Performing Organization Address [facility]/ZIP Co de Phone Number [facility] [address] [address] * (ABNORMAL) POCT GLUCOSE (01/28/2025 4:43 PM EDT) POCT Glucose 65(L) 74 - 99 mg/dL 01/28/2025 4:45 PM EDT [facility] Blood Capillary blood specimen / Unknown 01/28/2025 4:43 PM EDT 01/28/2025 4:45 PM EDT us Marvin Lopez MD LAB POINT OF CARE TE ST DOCKED DEVICE UNSOLICITED RESULTS Final Result Performing Organization Address [facility]/ZIP Co de Phone Number [facility] [address] [phone] * Transfuse RBC :2 Hours (01/28/2025 2:06 PM EDT) Only the most recent of4 resultswithin the time period is included. us Marvin Lopez MD BLOOD TRANSFUSION ORDERABLES Fi nal Result * (ABNORMAL) POCT GLUCOSE (01/28/2025 12:29 PM EDT) POCT Glucose 72(L) 74 - 99 mg/dL 01/28/2025 12:32 PM EDT [facility] Blood Capillary blood specimen / Unknown 01/28/2025 12:29 PM EDT 01/28/2025 12:32 PM EDT us Marvin Lopez MD LAB POINT OF CARE TE ST DOCKED DEVICE UNSOLICITED RESULTS Final Result Performing Organization Address [facility]/ZIP Co de Phone Number [facility] [address] [place], [place] [phone] * POCT GLUCOSE (01/28/2025 8:30 AM EDT) POCT Glucose 80 74 - 99 mg/dL 01/28/2025 8:32 AM EDT [facility] Blood Capillary blood specimen / Unknown 01/28/2025 8:30 AM EDT 01/28/2025 8:32 AM EDT us Marvin Lopez MD LAB POINT OF CARE TE ST DOCKED DEVICE UNSOLICITED RESULTS Final Result [facility] [address] [place] [phone] * Phosphorus (01/28/2025 6:31 AM EDT) Only the most recent of13 resultswithin the time period is included. Phosphorus 2.6 2.5 - 4.9 mg/dL LAB CHEMISTRY METHOD 01/28/2025 8:31 AM EDT [facility] Blood Venous blood specimen / Unknown Venipuncture / Unknown 01/28/2025 6:31 AM EDT 01/28/2025 7:51 AM EDT Marvin Lopez MD LAB BLOOD ORDERABLES Final Resu lt [facility] [address] [place] [address] * (ABNORMAL) Hepatic function panel (01/28/2025 6:31 AM EDT) Only the most recent of14 resultswithin the time period is included. [facility] Albumin 3.5 3.4 - 5.0 g/dL LAB CHEMISTRY METHOD 01/28/2025 8:31 AM EDT [facility] Bilirubin, Total 0.8 0.0 - 1.2 mg/dL LAB CHEMISTRY METHOD 01/28/2025 8:31 AM EDT [facility] Bilirubin, Direct 0.2 0.0 - 0.3 mg/dL LAB CHEMISTRY METHOD 01/28/2025 8:31 AM EDT [facility] Alkaline Phosphatase 62 33 - 136 U/L LAB CHEMISTRY METHOD 01/28/2025 8:31 AM EDT [facility] ALT 53(H) 7 - 45 U/L LAB CHEMISTRY METHOD 01/28/2025 8:31 AM EDT [facility] Comment:Patients treated wit h Sulfasalazine may generate falsely decreased results for ALT. AST 78(H) 9 - 39 U/L LAB CHEMISTRY METHOD 01/28/2025 8:31 AM EDT [facility] Total Protein 5.1(L) 6.4 - 8.2 g/dL LAB CHEMISTRY METHOD 01/28/2025 8:31 AM EDT [facility] Blood Venous blood specimen / Unknown Venipuncture / Unknown 01/28/2025 6:31 AM EDT 01/28/2025 7:51 AM EDT Marvin Lopez MD LAB BLOOD ORDERABLES Final Resu lt [facility] [address] [phone] * (ABNORMAL) Basic Metabolic Panel (01/28/2025 6:31 AM EDT) Only the most recent of15 resultswithin the time period is included. [facility] Glucose 83 74 - 99 mg/dL LAB CHEMISTRY METHOD 01/28/2025 8:31 AM EDT [facility] Sodium 139 136 - 145 mmol/L LAB CHEMISTRY METHOD 01/28/2025 8:31 AM EDT [facility] Potassium 4.5 3.5 - 5.3 mmol/L LAB CHEMISTRY METHOD 01/28/2025 8:31 AM EDT [facility] Chloride 107 98 - 107 mmol/L LAB CHEMISTRY METHOD 01/28/2025 8:31 AM EDT [facility] Bicarbonate 26 21 - 32 mmol/L LAB CHEMISTRY METHOD 01/28/2025 8:31 AM EDT [facility] Anion Gap 11 10 - 20 mmol/L LAB CHEMISTRY METHOD 01/28/2025 8:31 AM EDT [facility] Urea Nitrogen 13 6 - 23 mg/dL LAB CHEMISTRY METHOD 01/28/2025 8:31 AM EDT [facility] Creatinine 1.09(H) 0.50 - 1.05 mg/dL LAB CHEMISTRY METHOD 01/28/2025 8:31 AM EDT [facility] eGFR 55(L) >60 mL/min/1. 73m*2 LAB CHEMISTRY METHOD 01/28/2025 8:31 AM EDT [facility] Comment: Calculations of estimated GFR are performed using the 2020 CKD-EPI Study Refit equation without the race variable for the IDMS-Traceable creatinine methods. https://jasn.asnjournals.org/content/early//ASN.2320375415 Calcium 8.5(L) 8.6 - 10.6 mg/dL LAB CHEMISTRY METHOD 01/28/2025 8:31 AM EDT [facility] Blood Venous blood specimen / Unknown Venipuncture / Unknown 01/28/2025 6:31 AM EDT 01/28/2025 7:51 AM EDT Marvin Lopez MD LAB BLOOD ORDERABLES Final Resu lt Performing Organization Address City/State/[facility] Co de Phone Number [facility] [id number] [place] [phone] * POCT GLUCOSE (01/28/2025 5:13 AM EDT) POCT Glucose 82 74 - 99 mg/dL 01/28/2025 5:15 AM EDT [facility] Blood Capillary blood specimen / Unknown 01/28/2025 5:13 AM EDT 01/28/2025 5:15 AM EDT us Marvin Lopez MD LAB POINT OF CARE TE ST DOCKED DEVICE UNSOLICITED RESULTS Final Result Performing Organization Address [facility] de Phone Number [facility] [address] [place] [phone] * POCT GLUCOSE (01/27/2025 10:16 PM EDT) POCT Glucose 86 74 - 99 mg/dL 01/31/2025 7:03 AM EDT [facility] Blood Capillary blood specimen / Unknown 01/27/2025 10:16 PM EDT 01/31/2025 7:03 AM EDT us Marvin Lopez MD LAB POINT OF CARE TE ST DOCKED DEVICE UNSOLICITED RESULTS Final Result Performing Organization Address [facility] de Phone Number [facility] [address] [place] [phone] * POCT GLUCOSE (01/27/2025 5:15 PM EDT) POCT Glucose 98 74 - 99 mg/dL 01/27/2025 5:16 PM EDT [facility] Blood Capillary blood specimen / Unknown 01/27/2025 5:15 PM EDT 01/27/2025 5:16 PM EDT us Marvin Lopez MD LAB POINT OF CARE TE ST DOCKED DEVICE UNSOLICITED RESULTS Final Result Performing Organization Address [facility] de Phone Number [facility] [id number] [place] [phone] * POCT GLUCOSE (01/27/2025 12:55 PM EDT) [facility] POCT Glucose 99 74 - 99 mg/dL 01/27/2025 12:57 PM EDT [facility] Blood Capillary blood specimen / Unknown 01/27/2025 12:55 PM EDT 01/27/2025 12:57 PM EDT us Marvin Lopez MD LAB POINT OF CARE TE ST DOCKED DEVICE UNSOLICITED RESULTS Final Result Performing Organization Address [facility] de Phone Number [facility] [address] [place] [phone] * (ABNORMAL) POCT GLUCOSE (01/27/2025 7:28 AM EDT) [facility] POCT Glucose 111(H) 74 - 99 mg/dL 01/27/2025 7:33 AM EDT [facility] Blood Capillary blood specimen / Unknown 01/27/2025 7:28 AM EDT 01/27/2025 7:33 AM EDT us Marvin Lopez MD LAB POINT OF CARE TE ST DOCKED DEVICE UNSOLICITED RESULTS Final Result Performing Organization Address [facility] de Phone Number [facility] [address] [place] [phone] * (ABNORMAL) Blood Gas Venous Full Panel (01/27/2025 6:03 AM EDT) Only the most recent of2 resultswithin the time period is included. [facility] POCT pH, Venous 7.38 7.33 - 7.43 pH 01/27/2025 6:10 AM EDT [facility] POCT pCO2, Venous 42 41 - 51 mm Hg 01/27/2025 6:10 AM EDT [facility] POCT pO2, Venous 46(H) 35 - 45 mm Hg 01/27/2025 6:10 AM EDT [facility] POCT SO2, Venous 74 45 - 75 % 01/28/20 6:10 AM EDT [facility] POCT Oxy Hemoglobin, Venous 72.0 45.0 - 75.0 % 01/27/2025 6:10 AM EDT [facility] POCT Hematocrit Calculated, Venous 20.0(L) 36.0 - 46.0 % 01/27/2025 6:10 AM EDT [facility] POCT Sodium, Venous 139 136 - 145 mmol/L 01/27/2025 6:10 AM EDT [facility] POCT Potassium, Venous 4.3 3.5 - 5.3 mmol/L 01/27/2025 6:10 AM EDT [facility] POCT Chloride, Venous 108(H) 98 - 107 mmol/L 01/27/2025 6:10 AM EDT [facility] POCT Ionized Calicum, Venous 1.11 1.10 - 1.33 mmol/L 01/27/2025 6:10 AM EDT [facility] POCT Glucose, Venous 127(H) 74 - 99 mg/dL 01/27/2025 6:10 AM EDT [facility] POCT Lactate, Venous 1.8 0.4 - 2.0 mmol/L 01/27/2025 6:10 AM EDT [facility] POCT Base Excess, Venous -0.3 -2.0 - 3.0 mmol/L 01/27/2025 6:10 AM EDT [facility] POCT HCO3 Calculated, Venous 24.8 22.0 - 26.0 mmol/L 01/27/2025 6:10 AM EDT [facility] POCT Hemoglobin, Venous 6.8(L) 12.0 - 16.0 g/dL 01/27/2025 6:10 AM EDT [facility] POCT Anion Gap, Venous 11.0 10.0 - 25.0 mmol/L 01/27/2025 6:10 AM EDT [facility] Patient Temperature 37.0 degrees Celsius 01/27/2025 6:10 AM EDT [facility] FiO2 28 % 01/27/2025 6:10 AM EDT [facility] Blood Venous blood specimen / Unknown Arterial Line / Unknown 01/27/2025 6:03 AM EDT 01/27/2025 6:03 AM EDT us Marvin Lopez MD LAB BLOOD ORDERABLES Final Resu lt Performing Organization Address [facility] Co de Phone Number [facility] [id number] [place] [phone] * (ABNORMAL) POCT GLUCOSE (01/27/2025 3:40 AM EDT) Pathologist [facility] POCT Glucose 125(H) 74 - 99 mg/dL 01/27/2025 3:42 AM EDT [facility] Blood Capillary blood specimen / Unknown 01/27/2025 3:40 AM EDT 01/27/2025 3:42 AM EDT Marvin Lopez MD LAB POINT OF CARE TE ST DOCKED DEVICE UNSOLICITED RESULTS Final Result Performing Organization Address [facility] de Phone Number [facility] [id number] [place] [phone] * (ABNORMAL) Blood Gas Arterial Full Panel (01/27/2025 2:12 AM EDT) Only the most recent of7 resultswithin the time period is included. POCT pH, Arterial 7.41 7.38 - 7.42 pH 01/27/2025 6:50 AM EDT [facility] POCT pCO2, Arterial 36(L) 38 - 42 mm Hg 01/27/2025 6:50 AM EDT [facility] POCT pO2, Arterial 120(H) 85 - 95 mm Hg 01/27/2025 6:50 AM EDT [facility] POCT SO2, Arterial 100 94 - 100 % 01/27/2025 6:50 AM EDT [facility] POCT Oxy Hemoglobin, Arterial 96.9 94.0 - 98.0 % 01/27/2025 6:50 AM EDT [facility] POCT Hematocrit Calculated, Arterial 26.0(L) 36.0 - 46.0 % 01/27/2025 6:50 AM EDT [facility] POCT Sodium, Arterial 139 136 - 145 mmol/L 01/27/2025 6:50 AM EDT [facility] POCT Potassium, Arterial 4.5 3.5 - 5.3 mmol/L 01/27/2025 6:50 AM EDT [facility] POCT Chloride, Arterial 110(H) 98 - 107 mmol/L 01/27/2025 6:50 AM EDT [facility] POCT Ionized Calcium, Arterial 1.13 1.10 - 1.33 mmol/L 01/27/2025 6:50 AM EDT [facility] POCT Glucose, Arterial 134(H) 74 - 99 mg/dL 01/27/2025 6:50 AM EDT [facility] POCT Lactate, Arterial 2.4(H) 0.4 - 2.0 mmol/L 01/27/2025 6:50 AM EDT [facility] POCT Base Excess, Arterial -1.6 -2.0 - 3.0 mmol/L 01/27/2025 6:50 AM EDT [facility] POCT HCO3 Calculated, Arterial 22.8 22.0 - 26.0 mmol/L 01/27/2025 6:50 AM EDT [facility] POCT Hemoglobin, Arterial 8.5(L) 12.0 - 16.0 g/dL 01/27/2025 6:50 AM EDT [facility] POCT Anion Gap, Arterial 11 10 - 25 mmo/L 01/27/2025 6:50 AM EDT [facility] Patient Temperature 01/27/2025 6:50 AM EDT [facility] Comment:NOTE: Patient Result s are Not Corrected for Temperature FiO2 28 % 01/27/2025 6:50 AM EDT [facility] Blood Arterial blood specimen / Unknown Arterial Line / Unknown 01/27/2025 2:12 AM EDT 01/27/2025 2:12 AM EDT us Reginaldo Tenorio [employer] SPECIALIST LAB BLOOD ORDERABLES Final Result [facility] [address] [place] [address] * (ABNORMAL) Coagulation Screen (01/27/2025 2:07 AM EDT) Only the most recent of13 resultswithin the time period is included. Protime 15.1(H) 9.8 - 12.4 seconds LAB COAGULATION METHOD 01/27/2025 2:50 AM EDT [facility] INR 1.4(H) 0.9 - 1.1 LAB COAGULATION METHOD 01/27/2025 2:50 AM EDT [facility] aPTT 29 26 - 36 seconds LAB COAGULATION METHOD 01/27/2025 2:50 AM EDT [facility] Blood Arterial blood specimen / Unknown Arterial Line / Unknown 01/27/2025 2:07 AM EDT 01/27/2025 2:34 AM EDT Narrative [facility] - 01/27/2025 2:50 AM EDT The APTT is no longer used for monitoring Unfractionated Heparin Therapy. For monitoring Heparin Therapy, use the Heparin Assay. [employer] LAB BLOOD [place] [address] * Lipase (01/27/2025 2:07 AM EDT) Only the most recent of2 resultswithin the time period is included. [facility] Lipase 23 9 - 82 U/L LAB CHEMISTRY METHOD 01/27/2025 3:03 AM EDT [facility] Blood Arterial blood specimen / Unknown Arterial Line / Unknown 01/27/2025 2:07 AM EDT 01/27/2025 2:34 AM EDT Narrative [facility] - 01/27/2025 3:03 AM EDT Venipuncture immediately after or during the administration of Metamizole may lead to falsely low results. Testing should be performed immediately prior to Metamizole dosing. [employer] LAB BLOOD ORDERABLES Final Result Performing Organization Address [facility] Co de Phone Number [facility] [address] [address] * (ABNORMAL) Calcium, Ionized (01/27/2025 2:07 AM EDT) Only the most recent of2 resultswithin the time period is included. POCT Calcium, Ionized 1.08(L) 1.1 - 1.33 mmol/L 01/27/2025 2:44 AM EDT [facility] Comment: The performance characteristics of ionized calcium tested in heparinized plasma or serum have been validated by the individual laboratory site where testing is performed. Testing on heparinized plasma or serum is not approved by the FDA; however, such approval is not necessary. Blood Arterial blood specimen / Unknown Arterial Line / Unknown 01/27/2025 2:07 AM EDT 01/27/2025 2:08 AM EDT Reginaldo Janet [facility] LAB BLOOD ORDERABLES Final Result Performing Organization Address [facility] Co de Phone Number [facility] [address] [address] * (ABNORMAL) Amylase (01/27/2025 2:07 AM EDT) Only the most recent of2 resultswithin the time period is included. Pathologist [facility] Amylase <10(L) 29 - 103 U/L LAB CHEMISTRY METHOD 01/27/2025 3:03 AM EDT [facility] Blood Arterial blood specimen / Unknown Arterial Line / Unknown 01/27/2025 2:07 AM EDT 01/27/2025 2:34 AM EDT [facility] L [facility] LAB BLOOD ORDERABLES Final Result Performing Organization Address [facility]/ZIP Co de Phone Number [facility] [address] [address] * (ABNORMAL) POCT GLUCOSE (01/26/2025 11:59 PM EDT) [facility] POCT Glucose 138(H) 74 - 99 mg/dL 01/27/2025 12:01 AM EDT [facility] Blood Capillary blood specimen / Unknown 01/26/2025 11:59 PM EDT 01/27/2025 12:01 AM EDT Marvin Lopez MD LAB POINT OF CARE TE ST DOCKED DEVICE UNSOLICITED RESULTS Final Result Performing Organization Address [facility] de Phone Number [facility] [address] [place] [address] * Troponin I, High Sensitivity (01/26/2025 9:28 PM EDT) [facility] Troponin I, High Sensitivity (CMC) 7 0 - 34 ng/L LAB IMMUNOASSAY METHOD 01/26/2025 11:46 PM EDT [facility] Blood Arterial blood specimen / Unknown Arterial Line / Unknown 01/26/2025 9:28 PM EDT 01/26/2025 9:51 PM EDT Narrative [facility] - 01/26/2025 11:46 PM EDT Less than 99th percentile of normal range cutoff- Female and children under 18 years old <35 ng/L; Male <54 ng/L: Negative Repeat testing should be performed if clinically indicated. Female and children under 18 years old 35-120 ng/L; Male 54-120 ng/L: Consistent with possible cardiac damage and possible increased clinical risk. Serial measurements may help to assess extent of myocardial damage. >120 ng/L: Consistent with cardiac damage, increased clinical risk and myocardial infarction. Serial measurements may help assess extent of myocardial damage. NOTE: Children less than 1 year old may have higher baseline troponin levels and results should be interpreted in conjunction with the overall clinical context. NOTE: Troponin I testing is performed using a different testing methodology at [facility] than at other [facility]. Direct result comparisons should only be made within the same method. us Marvin Lopez MD LAB BLOOD ORDERABLES Final Resu lt Performing Organization Address [facility]/ZIP Co de Phone Number [facility] [address] [place], [place] [id number] * Electrocardiogram, 12-lead PRN ACS symptoms (01/26/2025 8:45 PM EDT) Only the most recent of2 resultswithin the time period is included. Ventricular Rate 74 BPM MUSE Atrial Rate 74 BPM MUSE [place] Interval 158 ms MUSE QRS Duration 90 ms MUSE QT Interval 440 ms MUSE QTC Calculation(Baze tt) 488 ms MUSE P [place] 27 degrees MUSE R [place] 1 degrees MUSE T [place] 13 degrees MUSE QRS Count 12 beats MUSE Q Onset 225 ms MUSE P Onset 146 ms MUSE P Offset 210 ms MUSE T Offset 445 ms MUSE QTC Fredericia 472 ms MUSE 01/26/2025 8:44 PM EDT 01/30/2025 10:14 AM EDT Narrative MUSE - 01/30/2025 10:14 AM EDT Sinus rhythm with Premature atrial complexes Mild Prolonged QT Borderline ECG Confirmed by Nile Campbell ([id number]) on 01/30/2025 10:14:01 AM Procedure Note Nile Campbell MD - 01/30/2025 Sinus rhythm with Premature atrial complexes Mild Prolonged QT Borderline ECG Confirmed by Nile Campbell ([id number]) on 01/30/2025 10:14:01 AM Marvin Lopez MD ECG ORDERABLES Final Result Performing Organization Address [facility] Co de Phone Number MUSE * (ABNORMAL) POCT GLUCOSE (01/26/2025 7:22 PM EDT) Pathologist [facility] POCT Glucose 150(H) 74 - 99 mg/dL 01/26/2025 7:30 PM EDT [facility] Blood Capillary blood specimen / Unknown 01/26/2025 7:22 PM EDT 01/26/2025 7:30 PM EDT Marvin Lopez MD LAB POINT OF CARE TE ST DOCKED DEVICE UNSOLICITED RESULTS Final Result Performing Organization Address [facility] Co de Phone Number [facility] [address] [place], [place] [id number] * XR chest 1 view (01/26/2025 6:36 PM EDT) Only the most recent of2 resultswithin the time period is included. Anatomical Region Laterality Modality Thoracic, Chest Computed Radiogr aphy 01/26/2025 6:50 PM EDT 01/26/2025 8:08 PM EDT Impressions 01/26/2025 8:06 PM EDT 1. Interval placement of a right IJ central venous catheter with tip overlying the right atrium. No pneumothorax. 2. Low lung volumes with bibasilar atelectasis. 3. Additional medical devices as detailed above. I personally reviewed the images/study and I agree with the findings as stated by resident physician Dr. Celia Chávez. This study was interpreted at [place], [place]. MACRO: None Signed by: Los García 01/26/2025 8:06 PM Dictation workstation: [id number] Narrative 01/26/2025 8:06 PM EDT Interpreted By: Los García and MacBeth RaeLynne STUDY: XR CHEST 1 VIEW; 01/26/2025 6:36 pm INDICATION: Signs/Symptoms:central line confirmation of placement. COMPARISON: Chest radiograph 12/25/2024 ACCESSION NUMBER(S): [id number] ORDERING CLINICIAN: REGINALDO TENORIO FINDINGS: AP radiograph of the chest was provided. An enteric tube courses below the left hemidiaphragm with side hole overlying the left upper quadrant expected location of the proximal gastric body. Interval placement of a right IJ central venous catheter with tip overlying the right atrium. CARDIOMEDIASTINAL SILHOUETTE: Cardiomediastinal silhouette is stable in size and configuration. LUNGS: Low lung volumes contributing to bronchovascular crowding and bibasilar atelectasis. No pleural effusion or pneumothorax is evident. ABDOMEN: No remarkable upper abdominal findings. Biliary drain overlies the left lower quadrant and is partially included in the field of view. BONES: No acute osseous changes. Procedure Note Los García MD PhD - 01/26/2025 Interpreted By: Los García and MacBeth RaeLynne STUDY: XR CHEST 1 VIEW; 01/26/2025 6:36 pm INDICATION: Signs/Symptoms:central line confirmation of placement. COMPARISON: Chest radiograph 12/25/2024 ACCESSION NUMBER(S): [id number] ORDERING CLINICIAN: REGINALDO TENORIO FINDINGS: AP radiograph of the chest was provided. An enteric tube courses below the left hemidiaphragm with side hole overlying the left upper quadrant expected location of the proximal gastric body. Interval placement of a right IJ central venous catheter with tip overlying the right atrium. CARDIOMEDIASTINAL SILHOUETTE: Cardiomediastinal silhouette is stable in size and configuration. LUNGS: Low lung volumes contributing to bronchovascular crowding and bibasilar atelectasis. No pleural effusion or pneumothorax is evident. ABDOMEN: No remarkable upper abdominal findings. Biliary drain overlies the left lower quadrant and is partially included in the field of view. BONES: No acute osseous changes. IMPRESSION: 1. Interval placement of a right IJ central venous catheter with tip overlying the right atrium. No pneumothorax. 2. Low lung volumes with bibasilar atelectasis. 3. Additional medical devices as detailed above. I personally reviewed the images/study and I agree with the findings as stated by resident physician Dr. Celia Chávez. This study was interpreted at [place], [place]. MACRO: None Signed by: Los García 01/26/2025 8:06 PM Dictation workstation: [id number] Reginaldo Tenorio [employer] SPECIALIST IMG XR PROCEDURES Fin al Result * (ABNORMAL) POCT GLUCOSE (01/26/2025 5:56 PM EDT) POCT Glucose 151(H) 74 - 99 mg/dL 01/26/2025 5:58 PM EDT [facility] Blood Capillary blood specimen / Unknown 01/26/2025 5:56 PM EDT 01/26/2025 5:58 PM EDT Marvin Lopez MD LAB POINT OF CARE TE ST DOCKED DEVICE UNSOLICITED RESULTS Final Result [facility] [address] [address] * (ABNORMAL) Coox Panel, Arterial Unsolicited (01/26/2025 4:55 PM EDT) Only the most recent of4 resultswithin the time period is included. POCT Hemoglobin, Arterial 9.3(L) 12.0 - 16.0 g/dL 01/26/2025 4:57 PM EDT [facility] POCT Oxy Hemoglobin, Arterial 97.1 94.0 - 98.0 % 01/26/2025 4:57 PM EDT [facility] POCT Carboxyhemoglob in, Arterial 1.8 % 01/26/2025 4:57 PM EDT [facility] Comment: Ref Values Non-Smokers 0.5-1.5% Smokers 0.5-10.0% POCT Methemoglobin, Arterial 0.8 0.0 - 1.5 % 01/26/2025 4:57 PM EDT [facility] POCT Deoxy Hemoglobin, Arterial 0.2 0.0 - 5.0 % 01/26/2025 4:57 PM EDT [facility] Blood Arterial blood specimen / Unknown 01/26/2025 4:55 PM EDT 01/26/2025 4:57 PM EDT us Marvin Lopez MD LAB BLOOD ORDERABLES Final Resu lt [facility] [address] [address] * (ABNORMAL) Blood Gas Arterial Full Panel Unsolicited (01/26/2025 4:55 PM EDT) Only the most recent of4 resultswithin the time period is included. POCT pH, Arterial 7.39 7.38 - 7.42 pH 01/26/2025 4:57 PM EDT [facility] POCT pCO2, Arterial 35(L) 38 - 42 mm Hg 01/26/2025 4:57 PM EDT [facility] POCT pO2, Arterial 150(H) 85 - 95 mm Hg 01/26/2025 4:57 PM EDT [facility] POCT SO2, Arterial 100 94 - 100 % 01/26/2025 4:57 PM EDT [facility] POCT Oxy Hemoglobin, Arterial 97.1 94.0 - 98.0 % 01/26/2025 4:57 PM EDT [facility] POCT Hematocrit Calculated, Arterial 28.0(L) 36.0 - 46.0 % 01/26/2025 4:57 PM EDT [facility] POCT Sodium, Arterial 136 136 - 145 mmol/L 01/26/2025 4:57 PM EDT [facility] POCT Potassium, Arterial 5.0 3.5 - 5.3 mmol/L 01/26/2025 4:57 PM EDT [facility] POCT Chloride, Arterial 110(H) 98 - 107 mmol/L 01/26/2025 4:57 PM EDT [facility] POCT Ionized Calcium, Arterial 1.14 1.10 - 1.33 mmol/L 01/26/2025 4:57 PM EDT [facility] POCT Glucose, Arterial 162(H) 74 - 99 mg/dL 01/26/2025 4:57 PM EDT [facility] POCT Lactate, Arterial 1.3 0.4 - 2.0 mmol/L 01/26/2025 4:57 PM EDT [facility] POCT Base Excess, Arterial -3.3(L) -2.0 - 3.0 mmol/L 01/26/2025 4:57 PM EDT [facility] POCT HCO3 Calculated, Arterial 21.2(L) 22.0 - 26.0 mmol/L 01/26/2025 4:57 PM EDT [facility] POCT Hemoglobin, Arterial 9.3(L) 12.0 - 16.0 g/dL 01/26/2025 4:57 PM EDT [facility] POCT Anion Gap, Arterial 10 10 - 25 mmo/L 01/26/2025 4:57 PM EDT [facility] Patient Temperature 37.0 degrees Celsius 01/26/2025 4:57 PM EDT [facility] Comment:NOTE: Patient Result s are Not Corrected for Temperature FiO2 45 % 01/26/2025 4:57 PM EDT [facility] Blood Arterial blood specimen / Unknown 01/26/2025 4:55 PM EDT 01/26/2025 4:57 PM EDT Marvin Lopez MD LAB BLOOD ORDERABLES Final Resu lt Performing Organization Address [facility] Co de Phone Number [facility] [id number] [place] [phone] * (ABNORMAL) Sterile Fluid Culture/Smear (01/26/2025 12:20 PM EDT) Sterile Fluid Culture/Smea r (2+) Few Mixed Gram-Positive and Gram-Negative Bacteria MICROSCAN 01/29/2025 2:10 PM EDT [facility] Gram Stain No polymorphonuclear leukocytes seen(A) 01/29/2025 2:10 PM EDT [facility] Gram Stain (2+) Few Mixed Gram positive and Gram negative bacteria(A) 01/29/2025 2:10 PM EDT [facility] Fluid (BILE FLUID) 01/26/2025 12:20 PM EDT 01/26/2025 9:26 PM EDT Comment:Pre-op diagnosis: Renal cell carcinoma of right kidney (Multi) [C64.1] Marvin Lopez MD LAB MICROBIOLOGY - GENERAL ORDE RABLES Final Result Performing Organization Address [facility] Co de Phone Number [facility] [address] [place] [id number] * Surgical Pathology Exam (01/26/2025 10:24 AM EDT) Only the most recent of3 resultswithin the time period is included. Case Report Surgical Pathology Case: [id number] Authorizing Provider: Marvin Lopez MD Collected: 01/26/2025 1024 Ordering Location: [facility] Received: 01/26/2025 [address] [facility] [place] Pathologist: Valentin Canseco MD Specimens: A) - GALLBLADDER RADICAL CHOLECYSTECTOMY, gallbladder B) - LYMPH NODE EXCISION, common hepatic artery lymph node C) - WHIPPLE SPECIMEN PANCREATICODUODENEC JIMMIE, WHIPPLE SPECIMEN + RIGHT KIDNEY + RIGHT ADRENAL GLAND D) - SOFT TISSUE RESECTION, TISSUE ON PORTAL VEIN 02/26/2025 10:31 AM EDT [facility] FINAL DIAGNOSIS A. Gallbladder, cholecystectomy: -- Acute and chronic cholecystitis. professional housing consultant (part A only): Dr. Ghanshyam Umana B. Specimen designated as common hepatic artery lymph node : --One lymph node, negative for metastatic carcinoma (0/1). C. Specimen designated as Whipple specimen, right kidney, right adrenal gland : -- Renal cell carcinoma, clear-cell type, with sarcomatoid dedifferentiation and necrosis. -- Carcinoma completely invades through renal parenchyma, directly into perinephric soft tissue, peripancreatic soft tissue, pancreatic parenchyma, and the duodenal wall. -- Carcinoma is identified immediately adjacent to the adrenal gland, but does not definitively invade into it. -- Carcinoma involves one of nine peripancreatic lymph nodes, by direct extension/invasion (1/9). -- Four perigastric lymph nodes, negative for carcinoma (0/4). -- See case summary report. D. Specimen designated as tissue on portal vein : -- Soft tissue, morphologically similar to neoplasm identified in part C. Immunohistochemical stains are performed on multiple tissue blocks from parts C (PAX8, carbonic anhydrase IX, cytokeratins CAM5.2, cytokeratins AE1/AE3), and support the above diagnosis. This case was sent out for external consultation to [facility] Department of Pathology. The outbound sales consultant pathologist agrees with the interpretation of clear-cell renal cell carcinoma with sarcomatoid dedifferentiation, and extension into the pancreas/duodenum. A full copy of the consult report is kept on file in our department of pathology. The diagnosis comment below reflects the opinion of the consulting pathologist, with which I am in agreement: I agree with the interpretation of this tumor as clear-cell renal cell carcinoma with sarcomatoid dedifferentiation. 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 Some areas of the spindle cell component appear deceptively bland, lacking the extreme atypia of a more obvious sarcomatoid carcinoma; however, I believe that these areas are in keeping with part of the sarcomatoid component, supported by the suggestion of small clear epithelioid cells admixed with the sclerotic spindle cell component, as well as immunohistochemistr y. In terms of the lymph node involvement, I think it would be reasonable to separately report that carcinoma directly invades into the peripancreatic lymph node without including it as pN. Additionally, since it appears to be contiguous with the main tumor, I would err against considering it a distant metastasis (pM), similar to the staging of renal cell carcinoma involving the adrenal gland, where direct invasion is considered pT4. The findings of this case were preliminarily discussed with Dr. Lopez and Dr. Snyder, via email on 02/17/2025. The final diagnosis was communicated via email to Dr. Lopez and Dr. Snyder on 02/26/2025. 02/26/2025 10:31 AM EDT [facility] at 1031 EDT By the signature on this report, the individual or group listed as making the Final Interpretation/Diag nosis certifies that they have reviewed this case. 02/26/2025 10:31 AM EDT [facility] Case Summary Report KIDNEY: Nephrectomy KIDNEY: NEPHRECTOMY - C 8th Edition - Protocol posted: 03/18/2024 SPECIMEN Procedure: Whipple specimen, right radical nephrectomy, right adrenalectomy Specimen Laterality: Right TUMOR Tumor Focality: Unifocal Tumor Size: Greatest Dimension (Centimeters): 9.0 cm Additional Dimension (Centimeters): 7 cm Additional Dimension (Centimeters): 5.5 cm Histologic Type: Clear cell renal cell carcinoma Histologic Grade (WHO / ISUP): G4, extreme nuclear pleomorphism and / or multinucleated giant cells and / or rhabdoid and / or sarcomatoid differentiation: Sarcomatoid dedifferentiation Tumor Extent: Extends into perinephric tissue (beyond renal capsule) Tumor Extent: Extends into other organ(s) / structure(s): Pancreas, duodenum Histologic Features: Sarcomatoid features present Tumor Necrosis: Present Lymphatic and / or Vascular Invasion: Present MARGINS Margin Status: All margins negative for invasive carcinoma REGIONAL LYMPH NODES Regional Lymph Node Status: : Cannot be determined: -- Carcinoma involves one of nine peripancreatic lymph nodes by direct extension/invasion (1/9). -- Four perigastric lymph nodes, negative for carcinoma (0/4). Number of Lymph Nodes Examined: Cannot be determined: -- Carcinoma involves one of nine peripancreatic lymph nodes by direct extension/invasion (1/9). -- Four perigastric lymph nodes, negative for carcinoma (0/4). pTNM CLASSIFICATION (AJCC 8th Edition) Reporting of pT, pN, and (when applicable) pM categories is based on information available to the pathologist at the time the report is issued. As per the AJCC (Chapter 1, 8th Ed.) it is the managing physician's responsibility to establish the final pathologic stage based upon all pertinent information, including but potentially not limited to this pathology report. pT Category: pT4 pN Category: pN not assigned (cannot be determined based on available pathological information) ADDITIONAL FINDINGS Additional Findings in Kidney: . 02/26/2025 10:31 AM [facility] Block for Additional Biomarkers/Mol ecular Studies Tumor Block: C22 02/26/2025 10:31 AM [facility] Clinical History Pre-op diagnosis: Renal cell carcinoma of right kidney (Multi) [C64.1] 02/26/2025 10:31 AM [facility] Gross Description A: Received in formalin, labeled with the patient's name, hospital number and gallbladder , is a gallbladder measuring 5.5 x 3.5 x 2.1 cm, with a possible segment of cystic duct measuring 1.5 cm in length. The serosa is purple-simmons, smooth and glistening. A defect is not present. The lumen contains bile. The wall measures up to 0.2 cm in thickness. Calculi are not identified. The mucosa is bile-stained and velvety. A discrete lymph node is not identified. Robotics Specialist sections are submitted in 1 cassette. MDW Summary of Cassettes: Specimen Label Site A 1 cystic duct margin en face and gallbladder wall (internet sales representative fundus and body) B: Received in formalin, labeled with patient name and hospital number and common hepatic artery lymph , is 1 possible lymph node with attached soft tissue, measuring 2.5 x 1.5 x 1.0 cm. Sectioning reveals white, friable, soft cut surfaces. Specimen is serially sectioned and submitted entirely in 2 cassettes. MDW C: Received in formalin, labeled with patient name and hospital number and WHIPPLE SPEC , is a Whipple specimen with adherent kidney and adrenal gland. The specimen is inked as follows: The pancreatic neck edge and the main pancreatic duct are inked yellow. The bile duct margin and lumen of the bile duct are inked green. The vascular groove is inked blue. The uncinate edge is inked black. The remainder of the outer surface of the pancreas is inked orange. The outer surface of the kidney is inked herman. A definitive vessel segment is not grossly identified within the vascular groove. The kidney measures 18.0 x 10.5 x 5.5 cm with perirenal fat and portion of Gerota's fascia. The adrenal gland is disrupted, and measures 5.5 x 1.5 x 0.6 cm. The specimen is inked and bivalved. The cut surface reveals a mass in the upper portion of the kidney measuring 9.0 x 7.0 x 5.5 cm. The mass is poorly circumscribed and is composed of firm, simmons-brown to yellow tissue with myxoid, necrotic, and focally hemorrhagic regions. The mass extends through the renal capsule and perirenal fat, into the pancreas, through the duodenal wall into the duodenal mucosa, and directly abuts and possibly involves the adrenal gland. The mass abuts but does not grossly involve the portion of Gerota's fascia. The mass grossly involves the CBD, but does not appear to involve the pancreatic duct. The mass grossly appears extend into one tightly adherent, peripancreatic possible lymph node measuring 3.0 x 2.0 x 1.5 cm. The mass abuts the perisinusoidal fat, and does not grossly involve the renal vein. The remainder of the cut surface is simmons-brown with a well-defined cortical medullary junction. The pelvis and calyces are covered by smooth, glistening mucosa. Extending from the renal pelvis is a ureter, 6.0 cm in length and 0.8 cm in diameter. The Whipple specimen consists of a portion of stomach, 6.5 x 6.0 x 3.0 cm, a segment of duodenum, 22.0 cm in length, x 3.5 cm in diameter, a branched segment of common bile duct without attached gallbladder measuring up to 3.0 cm in length and 2.0-3.0 cm in diameter, and a 8.0 x 5.5 x 4.5 cm segment of pancreas and peripancretic adipose tissue. The main pancreatic duct and CBD are each probe patent. The mass is located 2.0 cm from the CBD margin, 2.0 cm from the pancreatic neck and duct edge, 2.0 cm from the uncinate margin, and 2.0 cm from the vascular groove. The mass is 15.0 cm from the distal/duodenal mucosal margin, and 7.0 cm from the proximal/stomach mucosal margin. The remainder of the pancreatic parenchyma is simmons and lobulated, with foci of yellow, friable, possible fat necrosis located 2.0 cm from the mass in the pancreatic parenchyma and adjacent peripancreatic fat. The remainder of the duodenal and gastric mucosa are unremarkable. The remainder of the kidney parenchyma is brown-simmons, with a well-defined corticomedullary junction. A segment of possible omentum is identified attached to the stomach, measuring 5.0 x 3.0 x 0.3 cm. The possible omentum is yellow and lobulated. No discrete omental nodules are identified. The perigastric and perirenal fat are remarkable for multiple foci of yellow, friable possible fat necrosis measuring up to 0.3 cm. Palpation and dissection of the perirenal adipose tissue reveals a firm white-yellow nodule, located 0.5 cm from the mass. Palpation and dissection of the peripancreatic and perigastric adipose tissue reveals multiple possible lymph nodes, ranging in size from 0.2 to 1.2 cm in greatest dimension. Photographs are taken. [employer] Specialist sections are submitted in 58 cassettes. MDW NOTE: The pancreatic neck margin is inked black and the uncinate margin is inked yellow. Following the shave, the pancreatic neck edge is re-inked yellow, and the uncinate edge is re-inked black to aid with normal orientation. Consulted in person with Dr. Canseco on 01/27/25 at 11:00 am. Consulted in person with Dr. Franco 01/27/25 at 2:30 pm. Summary of Cassettes Specimen Label Site C 1 Pancreatic neck margin, en face 2 Renal vascular margins, shaved, en face 3 Ureter margin, shaved, en face 4 Branched superior CBD margin, smaller diameter, superior aspect, shaved, en face 5 Branched superior CBD margin, larger diameter, superior aspect, shaved, en face 6-7 Uncinate margin, perpendicularly sectioned 8 Duodenum margin, shaved, en face 9-10 Stomach cuff margin, shaved, en face 11-12 Ampulla; CBD and pancreatic duct towards duodenum 13-14 Mass towards pancreas, pancreatic duct and CBD, and duodenum (whole aury) 15-16 Mass towards uncinate edge and vascular groove 17-19 Mass towards adrenal gland 20-21 Mass towards perisinusoidal fat 22 Mass towards renal vein in area of hilum 23-29 Additional internet sales representative mass in kidney (adjacent renal parenchyma in cassettes 23-24) 30 Robotics Specialist renal parenchyma, lower pole 31-32 Robotics Specialist mass extension into possible peripancreatic lymph node 33-34 Additional internet sales representative adrenal gland with adjacent mass 35-36 Additional internet sales representative mass towards duodenum 37 Renal mass towards closest Gerota's fascia 38 Robotics Specialist possible omentum 39-40 Robotics Specialist pancreatic parenchyma with foci of necrosis 41-43 Perirenal fat nodule, entirely submitted 44-45 Two possible peripancreatic lymph nodes in each cassette 46 One possible peripancreatic lymph node 47-52 Additional internet sales representative peripancreatic fat 53 Four possible perigastric lymph nodes 54-58 Additional internet sales representative perigastric fat D: Received in formalin, labeled with patient name and hospital number and tissue open , are 2 simmons-brown soft tissue fragments, aggregating to 2.0 x 0.8 x 0.6 cm. Specimen is sectioned and submitted entirely in 2 cassettes. ADOLPH 02/26/2025 10:31 AM [facility] Disclaimer One or more of the reagents used to perform assays on this specimen MAY have contained components considered to be analyte specific reagents (ASR's). ASR's have not been cleared or approved by the U.S. Food and Drug Administration. These assays were developed and their performance characteristics determined by the Department of Pathology at [facility]. The FDA does not require this test to go through premarket FDA review. This test is used for clinical purposes. It should not be regarded as investigational or for research. This laboratory is certified under the Clinical Laboratory Improvement Amendments (CLIA) as qualified to perform high complexity clinical laboratory testing. The assays were performed with appropriate positive and negative controls which stained appropriately. 02/26/2025 10:31 AM [facility] Tissue (GALLBLADDER RADICAL CHOLECYSTECTOMY) 01/26/2025 10:24 AM EDT 01/26/2025 10:13 PM EDT Comment:Pre-op diagnosis: Renal cell carcinoma of right kidney (Multi) [C64.1] Tissue specimen (specimen) (LYMPH NODE EXCISION) 01/26/2025 10:53 AM EDT 01/26/2025 10:14 PM EDT Comment:common hepatic arter y lymph node Tissue specimen (specimen) (WHIPPLE SPECIMEN PANCREATICODUODEN ECTOMY) 01/26/2025 1:20 PM EDT 01/26/2025 10:14 PM EDT Comment:Pre-op diagnosis: Renal cell carcinoma of right kidney (Multi) [C64.1] Tissue specimen (specimen) Soft tissue specimen / Unknown 01/26/2025 4:33 PM EDT 01/26/2025 10:14 PM EDT Comment:TISSUE ON PORTAL VEI N us Marvin Lopez MD LAB PATHOLOGY ORDERABLES Final Result Performing Organization Address City/State/[facility] Co de Phone Number [facility] [address] [place] [address] * [place] AN CENTRAL LINE DOUBLE LUMEN, CHG US VASC ACCESS SITS VSL PATENCY NDL ENTRY (01/26/2025 8:10 AM EDT) Felisa Westbrook DO - 01/26/2025 8:10 AM EDT Felisa Epps DO 01/26/2025 9:18 AM Central Venous Line: Date/Time: 01/26/2025 8:10 AM A central venous line was placed in the OR for the following indication(s): central venous access. Staffing Performed: resident Authorized by: Debra Thacker MD Performed by: Felisa Epps DO Sterility preparation included the following: provider hand hygiene performed prior to central venous catheter insertion, all 5 sterile barriers used (gloves, gown, cap, mask, large sterile drape) during central venous catheter insertion, antiseptic used during central venous catheter insertion and skin prep agent completely dried prior to procedure. Medical reason for not performing maximal sterile barrier technique: no The patient was placed in Trendelenburg position. Right internal jugular vein was prepped. The site was prepped with Chlorhexidine. Size: 9 Fr (8 Fr) Length: 11.5 Catheter type: introducer Number of Lumens: double lumen This catheter was not an oximetric catheter. During the procedure, the following specific steps were taken: target vein identified, needle advanced into vein and blood aspirated and guidewire advanced into vein. Seldinger technique used. Procedure performed using ultrasound guidance. Sterile gel and probe cover used in ultrasound-guided central venous catheter insertion. Intravenous verification was obtained by ultrasound and venous blood return. Post insertion care included: all ports aspirated, all ports flushed easily, guidewire removed intact, Biopatch applied, line sutured in place and dressing applied. During the procedure the patient experienced: patient tolerated procedure well with no complications. images stored in chart Additional notes: Right IJ MAC line with mini mac Result [facility] Debra Thacker MD ANESTHESIA ORDERABLES Final Result * ANESTHESIA PERIPHERAL IV PLACEMENT (01/26/2025 7:57 AM EDT) Felisa Westbrook DO - 01/26/2025 7:57 AM EDT Felisa Epps DO 01/26/2025 9:17 AM Peripheral IV Date/Time: 01/26/2025 7:57 AM Placement Needle size: 16 G Laterality: right Location: hand Local anesthetic: none Site prep: chlorhexidine Technique: anatomical landmarks Attempts: 1 Result [facility] Debra Thacker MD ANESTHESIA ORDERABLES Final Result * ANESTHESIA ARTERIAL LINE PLACEMENT (01/26/2025 7:52 AM EDT) Felisa Westbrook DO - 01/26/2025 7:52 AM EDT Felisa Epps DO 01/26/2025 9:17 AM Arterial Line: Date/Time: 01/26/2025 7:52 AM Staffing Performed: resident Authorized by: Debra Thacker MD Performed by: Felisa Epps DO An arterial line was placed. Procedure performed using surface landmarks.in the OR for the following indication(s): continuous blood pressure monitoring and blood sampling needed. A 20 gauge (size), 5 cm (length), Arrow (type) catheter was placed into the Left radial artery, secured by Tegaderm, Seldinger technique used. Events: patient tolerated procedure well with no complications. Result [facility] Debra Thacker MD ANESTHESIA ORDERABLES Edite d Result - Final * AZ AN ELECTIVE ENDOTRACHEAL AIRWAY (01/26/2025 7:44 AM EDT) Felisa Westbrook DO - 01/26/2025 7:44 AM EDT Felisa Epps DO 01/26/2025 9:16 AM Airway Date/Time: 01/26/2025 7:44 AM Reason: elective Airway not difficult Staffing Performed: resident Authorized by: Debra Thacker MD Performed by: Felisa Epps DO Patient location during procedure: OR Patient Condition Indications for airway management: anesthesia Patient position: sniffing Planned trial extubation Sedation level: deep Final Airway Details Preoxygenated: yes Final airway type: endotracheal airway Successful airway: ETT Cuffed: yes Successful intubation technique: video laryngoscopy (goss) Adjuncts used in placement: intubating stylet Endotracheal tube insertion site: oral Blade: Rob Blade size: #3 ETT size (mm): 7.0 Cormack-Lehane Classification: grade I - full view of glottis Placement verified by: capnometry Measured from: lips ETT to lips (cm): 21 Number of attempts at approach: 1 Additional Comments Easy mask no oral airway needed Grade 1 view with Gsos MAC 3 blade. Size 7.0 ETT secured 21 cm at lips, 1 attempt us Debra Thacker MD ANESTHESIA ORDERABLES Final Result * Prepare RBC: 4 Units (01/26/2025 7:00 AM EDT) PRODUCT CODE [id number] 01/26/2025 10:26 AM EDT [facility] Unit Number [id number] 01/26/2025 10:26 AM EDT [facility] Unit ABO A 01/26/2025 10:26 AM EDT [facility] Unit RH NEG 01/26/2025 10:26 AM EDT [facility] XM INTEP COMP 01/26/2025 9:09 AM EDT [facility] Dispense Status TR 10:26 AM EDT [facility] Blood Expiration Date 02/21/2025 11:59:00 PM EDT 01/26/2025 10:26 AM EDT [facility] PRODUCT BLOOD TYPE 0600 01/26/2025 10:26 AM EDT [facility] UNIT VOLUME 350 [facility] PRODUCT CODE [id number] 01/26/2025 1:14 PM EDT [facility] Unit Number [id number] 01/26/2025 1:14 PM EDT [facility] Unit ABO A 01/26/2025 1:14 PM EDT [facility] Unit RH NEG 01/26/2025 1:14 PM EDT [facility] XM INTEP COMP 01/26/2025 9:09 AM EDT [facility] Dispense Status TR 1:14 PM EDT [facility] Blood Expiration Date 02/22/2025 11:59:00 PM EDT 01/26/2025 1:14 PM EDT [facility] PRODUCT BLOOD TYPE 0600 01/26/2025 1:14 PM EDT [facility] UNIT VOLUME 297 [facility] PRODUCT CODE [id number] 01/28/2025 2:06 PM EDT [facility] Unit Number [id number] 01/28/2025 2:06 PM EDT [facility] Unit ABO A 01/28/2025 2:06 PM EDT [facility] Unit RH NEG 01/28/2025 2:06 PM EDT [facility] XM INTEP COMP 01/26/2025 5:55 PM EDT [facility] Dispense Status TR 2:06 PM EDT [facility] Blood Expiration Date 02/22/2025 11:59:00 PM EDT 01/28/2025 2:06 PM EDT [facility] PRODUCT BLOOD TYPE 0600 01/28/2025 2:06 PM EDT [facility] UNIT VOLUME 284 [facility] PRODUCT CODE [id number] 01/26/2025 2:45 PM EDT [facility] Unit Number [id number] 01/26/2025 2:45 PM EDT [facility] Unit ABO A 01/26/2025 2:45 PM EDT [facility] Unit RH NEG 01/26/2025 2:45 PM EDT [facility] XM INTEP COMP 01/26/2025 9:09 AM EDT [facility] Dispense Status TR 2:45 PM EDT [facility] Blood Expiration Date 02/22/2025 11:59:00 PM EDT 01/26/2025 2:45 PM EDT [facility] PRODUCT BLOOD TYPE 0600 01/26/2025 2:45 PM EDT [facility] UNIT VOLUME 302 [facility] Other 01/26/2025 7:00 AM EDT 01/25/2025 10:45 AM EDT Felisa Reynoldsmary grace DO BLOOD BANK PRODUCT ORDERABLE S Edited Result - Final [facility] [id number] [place] [id number] * HC AN PERIPHERAL BLOCK CHARGE, [place] AN CONTINUOUS PERIPHERAL CATHETER LDA PLACEMENT (01/26/2025 6:24 AM EDT) Narrative Ruthann Gottlieb MD - 01/26/2025 6:24 AM EDT Ruthann Gottlieb MD 01/26/2025 1:02 PM Peripheral Block Patient location during procedure: pre-op Medication administered at: 01/26/2025 6:24 AM End time: 01/26/2025 6:39 AM Reason for block: at surgeon's request and post-op pain management Staffing Performed: resident and attending Authorized by: Ruthann Gottlieb MD Performed by: Joseph Redd MD Preanesthetic Checklist Completed: patient identified, IV checked, site marked, risks and benefits discussed, surgical consent, monitors and equipment checked, pre-op evaluation and timeout performed Timeout performed at: 01/26/2025 6:24 AM Peripheral Block Patient position: sitting Prep: ChloraPrep Patient monitoring: heart rate and continuous pulse ox Block type: YOCASTA Laterality: B/L Injection technique: catheter Guidance: ultrasound guided Local infiltration: lidocaine Infiltration strength: 1 % Dose: 3 mL Needle Needle type: Tuohy Needle gauge: 22 G Needle length: 8 cm Needle localization: ultrasound guidance image stored in chart Assessment Injection assessment: negative aspiration for heme, no paresthesia on injection, incremental injection and local visualized surrounding nerve on ultrasound Additional Notes Erector spinae plane block: Prior to procedure: Following a focused history, procedure-related and patient-specific complications were discussed. Risks, benefits, and alternatives were explained. Informed, written consent was provided by the patient and/or surrogate decision maker for the block. Anticoagulation (if any) was held per IVONE guidelines. ASA monitors were applied. Patient was positioned, prepped with chlorhexidine, and draped with sterile towels. Ultrasound guidance was used to visualize the erector spinae muscle above the TP/costal junction at T7. Skin was numbed with 1% lidocaine. Needle was inserted and advanced towards target with visualization of the needle throughout duration of the procedure. A total of 20 cc of 0.5% ropivacaine, was divided and injected bilaterally. Catheters threaded and secured. Patient tolerated procedure well. Timeout by Sharon NARVAEZ us Ruthann Gottlieb MD ANESTHESIA ORDERABLES Final Res ult * Type And Screen Is this order related to or an upcoming surgery? Yes; Where will this surgery/delivery be performed? [facility]; What is the date of the surgery? 01/26/2025; Has this patient ever had a transfusion? Unknown; ... (01/25/2025 8:02 AM EDT) Only the most recent of5 resultswithin the time period is included. ABO TYPE A 01/25/2025 11:56 AM EDT [facility] Rh TYPE NEG 01/25/2025 11:56 AM EDT [facility] ANTIBODY SCREEN NEG 11:56 AM EDT [facility] Blood Venous blood specimen / Unknown Venipuncture / Unknown 01/25/2025 8:02 AM EDT 01/25/2025 10:45 AM EDT us Mercedes Katz PA-C LAB BLOOD BANK TEST ORDERABLES Final Result [facility] [address] [place] [id number] * Hemoglobin A1C (01/25/2025 8:02 AM EDT) Hemoglobin A1C 4.1 See comment % 025 11:36 AM EDT [facility] Estimated Average Glucose 71 Not Established mg/dL 01/25/2025 11:36 AM EDT [facility] Blood Venous blood specimen / Unknown Venipuncture / Unknown 01/25/2025 8:02 AM EDT 01/25/2025 10:51 AM EDT Narrative [facility] - 01/25/2025 11:36 AM EDT Diagnosis of Diabetes-Adults Non-Diabetic: < or = 5.6% Increased risk for developing diabetes: 5.7-6.4% Diagnostic of diabetes: > or = 6.5% us Mercedes Katz PA-C LAB BLOOD ORDERABLES Final Res ult Performing Organization Address City/State/[facility] Co de Phone Number [facility] [address] [place] [phone] * US guided percutaneous biopsy renal right (01/05/2025 9:54 AM EDT) Anatomical Region Laterality Modality Body Angio, Kidney Right Ultrasound 01/05/2025 3:26 PM EDT 01/05/2025 3:26 PM EDT Impressions 01/05/2025 3:25 PM EDT Ultrasound-guided core biopsy of the right superior pole kidney mass as described above Signed by: Mushtaq Nye 01/05/2025 3:25 PM Dictation workstation: [id number] Narrative 01/05/2025 3:25 PM EDT Interpreted By: Mushtaq Nye, STUDY: US GUIDED PERCUTANEOUS BIOPSY RENAL RIGHT; 01/05/2025 9:54 am INDICATION: Signs/Symptoms:Urology requesting STAT biopsy of large right renal mass prior to planned whipple + nephrectomy 01/26/[address] Lopez for suspected RCC as EGD biopsy of duodenal invasion during adimssion unrevealing of malignancy. COMPARISON: 12/22/2024. ACCESSION NUMBER(S): [id number] ORDERING CLINICIAN: KATHE MCCOY TECHNIQUE: CHANGE MANAGEMENT: Mushtaq Nye MD CONSENT: The patient was informed of the nature of the proposed procedure. The purposes, alternatives, risks, and benefits were explained and discussed. All questions were answered and consent was obtained. SEDATION: Moderate conscious intravenous sedation services (supervision of administration, induction, and maintenance) were provided by the physician performing the procedure with intravenous fentanyl and versed. Total intra-service sedation time from 5489-0650 hours (21 minutes). The physician was assisted by an independent trained observer, an interventional radiology nurse, in the continuous monitoring of the patient level of consciousness and physiologic status. MEDICATION/CONTRAST: None additional TIME OUT: A time out was performed immediately prior to the procedure start with interventional team, correctly identifying the patient using multiple identifiers and ensuring the appropriate procedure and anatomy (including laterality, if applicable) were identified. The procedure consent form and all relevant laboratory and imaging tests were reviewed. The need for antibiotic administration or patient or procedure specific safety precautions or equipment was reviewed. COMPLICATIONS: None immediate FINDINGS: The patient was positioned prone on the sonogram table. Limited sonographic images of the right kidney were obtained for the purpose of needle guidance. These demonstrate a solid, 6.4 x 5.7 x 4.5 cm right superior pole kidney mass which corresponds to the MRI findings. The skin was marked. The right flank was then prepped and draped in a sterile fashion. The skin and subcutaneous tissue were anesthetized with lidocaine. A small cutaneous incision was made to allow for passage of the coaxial needle. Under direct sonographic guidance, a 17 gauge coaxial needle was advanced into the superior pole mass. Once adequately positioned, the inner stylet was removed and a core biopsy sample was obtained. This was repeated 2 additional times. Sonographic images of the pass were saved. A Gelfoam pledget was injected through the needle as it was withdrawn. Post procedure images demonstrate no evidence of immediate hemorrhage. A sterile dressing was applied. Procedure Note Mushtaq Nye MD - 01/05/2025 Interpreted By: Mushtaq Nye, STUDY: US GUIDED PERCUTANEOUS BIOPSY RENAL RIGHT; 01/05/2025 9:54 am INDICATION: Signs/Symptoms:Urology requesting STAT biopsy of large right renal mass prior to planned whipple + nephrectomy 01/26/[address] Lopez for suspected RCC as EGD biopsy of duodenal invasion during adimssion unrevealing of malignancy. COMPARISON: 12/22/2024. ACCESSION NUMBER(S): [id number] ORDERING CLINICIAN: KATHE MCCOY TECHNIQUE: CHANGE MANAGEMENT: Mushtaq Nye MD CONSENT: The patient was informed of the nature of the proposed procedure. The purposes, alternatives, risks, and benefits were explained and discussed. All questions were answered and consent was obtained. SEDATION: Moderate conscious intravenous sedation services (supervision of administration, induction, and maintenance) were provided by the physician performing the procedure with intravenous fentanyl and versed. Total intra-service sedation time from 9148-2101 hours (21 minutes). The physician was assisted by an independent trained observer, an interventional radiology nurse, in the continuous monitoring of the patient level of consciousness and physiologic status. MEDICATION/CONTRAST: None additional TIME OUT: A time out was performed immediately prior to the procedure start with interventional team, correctly identifying the patient using multiple identifiers and ensuring the appropriate procedure and anatomy (including laterality, if applicable) were identified. The procedure consent form and all relevant laboratory and imaging tests were reviewed. The need for antibiotic administration or patient or procedure specific safety precautions or equipment was reviewed. COMPLICATIONS: None immediate FINDINGS: The patient was positioned prone on the sonogram table. Limited sonographic images of the right kidney were obtained for the purpose of needle guidance. These demonstrate a solid, 6.4 x 5.7 x 4.5 cm right superior pole kidney mass which corresponds to the MRI findings. The skin was marked. The right flank was then prepped and draped in a sterile fashion. The skin and subcutaneous tissue were anesthetized with lidocaine. A small cutaneous incision was made to allow for passage of the coaxial needle. Under direct sonographic guidance, a 17 gauge coaxial needle was advanced into the superior pole mass. Once adequately positioned, the inner stylet was removed and a core biopsy sample was obtained. This was repeated 2 additional times. Sonographic images of the pass were saved. A Gelfoam pledget was injected through the needle as it was withdrawn. Post procedure images demonstrate no evidence of immediate hemorrhage. A sterile dressing was applied. IMPRESSION: Ultrasound-guided core biopsy of the right superior pole kidney mass as described above Signed by: Mushtaq Nye 01/05/2025 3:25 PM Dictation workstation: [id number] us Kathe Mccoy MD [facility] PROCEDURES Final Result * (ABNORMAL) CBC and Auto Differential (12/31/2024 7:31 AM EDT) Only the most recent of11 resultswithin the time period is included. WBC 10.9 4.4 - 11.3 x10*3/uL LAB HEMATOLOGY METHOD 12/31/2024 9:26 AM EDT [facility] nRBC 0.0 0.0 - 0.0 /100 WBCs LAB HEMATOLOGY METHOD 12/31/2024 9:26 AM EDT [facility] RBC 3.42(L) 4.00 - 5.20 x10*6/uL LAB HEMATOLOGY METHOD 12/31/2024 9:26 AM EDT [facility] Hemoglobin 9.0(L) 12.0 - 16.0 g/dL LAB HEMATOLOGY METHOD 12/31/2024 9:26 AM EDT [facility] Hematocrit 29.1(L) 36.0 - 46.0 % LAB HEMATOLOGY METHOD 12/31/2024 9:26 AM EDT [facility] MCV 85 80 - 100 fL LAB HEMATOLOGY METHOD 12/31/2024 9:26 AM EDT [facility] MCH 26.3 26.0 - 34.0 pg LAB HEMATOLOGY METHOD 12/31/2024 9:26 AM EDT [facility] MCHC 30.9(L) 32.0 - 36.0 g/dL LAB HEMATOLOGY METHOD 12/31/2024 9:26 AM EDT [facility] RDW 18.6(H) 11.5 - 14.5 % LAB HEMATOLOGY METHOD 12/31/2024 9:26 AM EDT [facility] Platelets 462(H) 150 - 450 x10*3/uL LAB HEMATOLOGY METHOD 12/31/2024 9:26 AM EDT [facility] Immature Granulocytes %, Automated 5.3(H) 0.0 - 0.9 % LAB HEMATOLOGY METHOD 12/31/2024 9:26 AM EDT [facility] Comment:Immature Granulocyte Count (IG) includes promyelocytes, myelocytes and metamyelocytes but does not include bands. Percent differential counts (%) should be interpreted in the context of the absolute cell counts (cells/UL). Immature Granulocytes Absolute, Automated 0.58 0.00 - 0.70 x10*3/uL LAB HEMATOLOGY METHOD 12/31/2024 9:26 AM EDT [facility] Blood Venous blood specimen / Unknown Venipuncture / Unknown 12/31/2024 7:31 AM EDT 12/31/2024 8:08 AM EDT Narrative [facility] - 12/31/2024 9:26 AM EDT The previously reported component Neutrophils % is no longer being reported.The previously reported component Lymphocytes % is no longer being reported.The previously reported component Monocytes % is no longer being reported.The previously reported component Eosinophils % is no longer being reported.The previously reported component Basophils % is no longer being reported.The previously reported component Absolute Neutrophils is no longer being reported.The previously reported component Absolute Lymphocytes is no longer being reported.The previously reported component Absolute Monocytes is no longer being reported.The previously reported component Absolute Eosinophils is no longer being reported.The previously reported component Absolute Basophils is no longer being reported. Jennifer Reddy MD LAB BLOOD ORDERABLES [facility] Result [facility] [address] [facility] [id number] [place] [address] * (ABNORMAL) Manual Differential (12/31/2024 7:31 AM EDT) [facility] Neutrophils %, Manual 74.1 40.0 - 80.0 % 12/31/2024 9:26 AM EDT [facility] Comment:Percent differential counts (%) should be interpreted in the context of the absolute cell counts (cells/uL). Lymphocytes %, Manual 16.4 13.0 - 44.0 % 12/31/2024 9:26 AM EDT [facility] Monocytes %, Manual 6.9 2.0 - 10.0 % 12/31/2024 9:26 AM EDT [facility] Eosinophils %, Manual 1.7 0.0 - 6.0 % 12/31/2024 9:26 AM EDT [facility] Basophils %, Manual 0.9 0.0 - 2.0 % 12/31/2024 9:26 AM EDT [facility] Seg Neutrophils Absolute, Manual 8.08(H) 1.20 - 7.00 x10*3/uL 12/31/2024 9:26 AM EDT [facility] Lymphocytes Absolute, Manual 1.79 1.20 - 4.80 x10*3/uL 12/31/2024 9:26 AM EDT [facility] Monocytes Absolute, Manual 0.75 0.10 - 1.00 x10*3/uL 12/31/2024 9:26 AM EDT [facility] Eosinophils Absolute, Manual 0.19 0.00 - 0.70 x10*3/uL 12/31/2024 9:26 AM EDT [facility] Basophils Absolute, Manual 0.10 0.00 - 0.10 x10*3/uL 12/31/2024 9:26 AM EDT [facility] Total Cells Counted 116 12/31/2024 9:26 AM EDT [facility] RBC Morphology No significant RBC morphology present 12/31/2024 9:26 AM EDT [facility] Blood Venous blood specimen / Unknown Venipuncture / Unknown 12/31/2024 7:31 AM EDT 12/31/2024 8:08 AM EDT Jennifer Reddy MD LAB BLOOD ORDERABLES Fi nal Result [facility] [address] [id number] * IR biliary drain (12/28/2024 10:02 AM EDT) Only the most recent of2 resultswithin the time period is included. Anatomical Region Laterality Modality Bile duct X-Ray Angiograph y [place] 12/28/2024 5:30 PM EDT 12/28/2024 5:30 PM EDT Impressions 12/28/2024 5:29 PM EDT 1. Uncomplicated and technically successful percutaneous biliary drainage catheter exchange and upsize-newly placed 10-Beninese self-forming drainage catheter placement connected to external gravity drainage. I was present for and/or performed the critical portions of the procedure and immediately available throughout the entire procedure. I personally reviewed the image(s)/study and interpretation. I agree with the findings as stated. Performed and dictated at [facility]. MACRO: None. Signed by: Vandana Tate 12/28/2024 5:29 PM Dictation workstation: [id number] Narrative 12/28/2024 5:29 PM EDT Interpreted By: Vandana Tate, and Magnolia Szymanski STUDY: IR BILIARY DRAIN; 12/28/2024 10:02 am INDICATION: Signs/Symptoms:up-sizing of bili drain (initally placed 12/23), per surg onc's request. COMPARISON: Biliary drain placement dated 12/23/2024 MR kidney dated 12/22/2024 ACCESSION NUMBER(S): [id number] ORDERING CLINICIAN: VANDANA CHICAS TECHNIQUE: INTERVENTIONALIST(S): MD Stephon Kenney MD CONSENT: The patient/patient's POA/next of kin was informed of the nature of the proposed procedure. The purposes, alternatives, risks, and benefits were explained and discussed. All questions were answered and consent was obtained. RADIATION EXPOSURE: Fluoroscopy time: 1.3 min Dose: 20.58 mGy SEDATION: Moderate conscious IV sedation services (supervision of administration, induction, and maintenance) were provided by the physician performing the procedure with intravenous fentanyl 50mcg and versed 1mg from 2683-1747. The physician was assisted by an independent trained observer, an interventional radiology nurse, in the continuous monitoring of patient level of consciousness and physiologic status. MEDICATION: None. TIME OUT: A time out was performed immediately prior to procedure start with the interventional team, correctly identifying the patient name, date of , MRN, procedure, anatomy (including marking of site and side), patient position, procedure consent form, relevant laboratory and imaging test results, antibiotic administration, safety precautions, and procedure-specific equipment needs. COMPLICATIONS: No immediate adverse events identified. FINDINGS: Patient was placed supine on the angiography table and the right upper quadrant was prepped with maximum sterile barrier technique. CHOLANGIOGRAM FINDINGS: Initial information technology administrator fluoroscopic spot images demonstrate an intact existing percutaneous biliary drainage catheter. Half-strength contrast was injected through the existing catheter and demonstrated patency without leak. Opacification of the biliary system was observed. PROCEDURE: Appropriate lidocaine 1% local anesthesia was instilled in the subcutaneous soft tissues. The existing biliary drain was cut at the hub releasing the inner suture. An 035 Amplatz guidewire was inserted through the existing percutaneous biliary drainage catheter to secure location utilizing intermittent fluoroscopic guidance. The existing biliary catheter was removed over the wire. A new 10-Beninese internal/external biliary drainage catheter was subsequently inserted over the guidewire. The guidewire and inner stylet were removed. The self-forming pigtail loop was formed in the small bowel. Follow-up dilute contrast injection was performed to confirm optimal placement within the biliary system. The external portions of the catheter was secured in place with sterile suture and dressings. The patient tolerated the procedure without complication. Procedure Note Vandana Tate MD - 12/28/2024 Interpreted By: Vandana Tate and Guirguis James STUDY: IR BILIARY DRAIN; 12/28/2024 10:02 am INDICATION: Signs/Symptoms:up-sizing of bili drain (initally placed 12/23), per surg onc's request. COMPARISON: Biliary drain placement dated 12/23/2024 MR kidney dated 12/22/2024 ACCESSION NUMBER(S): [id number] ORDERING CLINICIAN: VANDANA CHICAS TECHNIQUE: INTERVENTIONALIST(S): MD Stephon Kenney MD CONSENT: The patient/patient's POA/next of kin was informed of the nature of the proposed procedure. The purposes, alternatives, risks, and benefits were explained and discussed. All questions were answered and consent was obtained. RADIATION EXPOSURE: Fluoroscopy time: 1.3 min Dose: 20.58 mGy SEDATION: Moderate conscious IV sedation services (supervision of administration, induction, and maintenance) were provided by the physician performing the procedure with intravenous fentanyl 50mcg and versed 1mg from 7591-3899. The physician was assisted by an independent trained observer, an interventional radiology nurse, in the continuous monitoring of patient level of consciousness and physiologic status. MEDICATION: None. TIME OUT: A time out was performed immediately prior to procedure start with the interventional team, correctly identifying the patient name, date of , MRN, procedure, anatomy (including marking of site and side), patient position, procedure consent form, relevant laboratory and imaging test results, antibiotic administration, safety precautions, and procedure-specific equipment needs. COMPLICATIONS: No immediate adverse events identified. FINDINGS: Patient was placed supine on the angiography table and the right upper quadrant was prepped with maximum sterile barrier technique. CHOLANGIOGRAM FINDINGS: Initial information technology administrator fluoroscopic spot images demonstrate an intact existing percutaneous biliary drainage catheter. Half-strength contrast was injected through the existing catheter and demonstrated patency without leak. Opacification of the biliary system was observed. PROCEDURE: Appropriate lidocaine 1% local anesthesia was instilled in the subcutaneous soft tissues. The existing biliary drain was cut at the hub releasing the inner suture. An 035 Amplatz guidewire was inserted through the existing percutaneous biliary drainage catheter to secure location utilizing intermittent fluoroscopic guidance. The existing biliary catheter was removed over the wire. A new 10-Beninese internal/external biliary drainage catheter was subsequently inserted over the guidewire. The guidewire and inner stylet were removed. The self-forming pigtail loop was formed in the small bowel. Follow-up dilute contrast injection was performed to confirm optimal placement within the biliary system. The external portions of the catheter was secured in place with sterile suture and dressings. The patient tolerated the procedure without complication. IMPRESSION: 1. Uncomplicated and technically successful percutaneous biliary drainage catheter exchange and upsize-newly placed 10-Beninese self-forming drainage catheter placement connected to external gravity drainage. I was present for and/or performed the critical portions of the procedure and immediately available throughout the entire procedure. I personally reviewed the image(s)/study and interpretation. I agree with the findings as stated. Performed and dictated at [facility]. MACRO: None. Signed by: Vandana Tate 12/28/2024 5:29 PM Dictation workstation: [id number] us Vandana Chicas MD IMG IR PROCEDURES Final Re sult * Blood Culture (12/25/2024 12:28 PM EDT) Only the most recent of2 resultswithin the time period is included. Blood Culture No growth at 4 days - FINAL REPORT AUTOMATED MICROBIAL DETECTION SYSTEM ([facility]) 12/29/2024 3:01 PM EDT [facility] Blood culture Venous blood specimen / Unknown Blood Culture / Unknown 12/25/2024 12:28 PM EDT 12/25/2024 2:31 PM EDT us Shelia Jenkins MD LAB MICROBIOLOGY - GENERAL ORDERABLES Final Result Performing Organization Address [facility] Co de Phone Number [facility] [address] [place] [id number] * Extra Urine Oh Tube (12/25/2024 12:04 PM EDT) Pathologist [facility] Extra Tube Hold for add-ons. 12/26/2024 12:01 AM EDT [facility] Comment:Auto resulted. Urine Urine specimen / Unknown Non-blood Collection / Unknown 12/25/2024 12:04 PM EDT 12/25/2024 1:36 PM EDT us Shelia Jenkins MD LAB URINE ORDERABLE S Final Result Performing Organization Address [facility] Co de Phone Number [facility] [address] [place] [phone] * (ABNORMAL) Urinalysis Microscopic (12/25/2024 12:04 PM EDT) WBC, Urine 1-5 1-5, NONE /HPF 12/25/2024 2:00 PM EDT [facility] RBC, Urine 3-5 NONE, 1-2, 3-5 /HPF 12/25/2024 2:00 PM EDT [facility] Squamous Epithelial Cells, Urine 1-9 (SPARSE) Reference range not established. /HPF 12/25/2024 2:00 PM EDT [facility] Mucus, Urine 2+ Reference range not established. /LPF 12/25/2024 2:00 PM EDT [facility] Hyaline Casts, Urine 4+(A) NONE /LPF 12/25/2024 2:00 PM EDT [facility] RBC Casts, Urine 3+(A) NONE /LPF 12/25/2024 2:00 PM EDT [facility] Fine Granular Casts, Urine 3+(A) NONE /LPF 12/25/2024 2:00 PM EDT [facility] Urine Urine specimen / Unknown Non-blood Collection / Unknown 12/25/2024 12:04 PM EDT 12/25/2024 1:36 PM EDT Shelia Jenkins MD LAB URINE ORDERABLE S Final Result [facility] [address] [address] [place] [phone] * (ABNORMAL) Urinalysis with Reflex Culture and Microscopic (12/25/2024 12:04 PM EDT) Color, Urine Dark-[place]( N) Light-Yellow , Yellow, Dark-Yellow 12/25/2024 2:00 PM EDT [facility] Appearance, Urine Ex.Turbid(N) Clear 12/25/2024 2:00 PM EDT [facility] Specific [place], Urine 1.034 1.005 - 1.035 12/25/2024 2:00 PM EDT [facility] pH, Urine 5.5 5.0, 5.5, 6.0, 6.5, 7.0, 7.5, 8.0 12/25/2024 2:00 PM EDT [facility] Protein, Urine 100 (2+)(A) NEGATIVE, 10 (TRACE), 20 (TRACE) mg/dL 12/25/2024 2:00 PM EDT [facility] Glucose, Urine Normal Normal mg/dL 12/25/2024 2:00 PM EDT [facility] Blood, Urine 0.1 (1+)(A) NEGATIVE mg/dL 12/25/2024 2:00 PM EDT [facility] Ketones, Urine NEGATIVE NEGATIVE mg/dL 12/25/2024 2:00 PM EDT [facility] Bilirubin, Urine 3 (2+)(A) NEGATIVE mg/dL 12/25/2024 2:00 PM EDT [facility] Urobilinogen, Urine Normal Normal mg/dL 12/25/2024 2:00 PM EDT [facility] Nitrite, Urine NEGATIVE NEGATIVE 12/25/2024 2:00 PM EDT [facility] Leukocyte Esterase, Urine NEGATIVE NEGATIVE 12/25/2024 2:00 PM EDT [facility] Urine Urine specimen / Unknown Non-blood Collection / Unknown 12/25/2024 12:04 PM EDT 12/25/2024 1:36 PM EDT Shelia Jenkins MD LAB URINE ORDERABLE S Final Result [facility] [address] [address] [place] [address] * Esophagogastroduodenoscopy (EGD) (12/25/2024 9:42 AM EDT) Anatomical Region Laterality Modality Endoscopy Narrative 12/25/2024 9:42 AM EDT Please see EGD note from same day for results. This is a duplicate note. Jennifer Reddy MD ENDOSCOPY PROCEDURE ORD ERABLES Final Result * XR hip right with pelvis when performed 2 or 3 views (12/25/2024 7:08 AM EDT) Anatomical Region Laterality Modality Musculoskeletal, Lower Extremities, Hip Right Computed Radiography 12/25/2024 7:16 AM EDT 12/25/2024 9:40 AM EDT Impressions 12/25/2024 9:39 AM EDT 1. No evidence of acute fracture or traumatic malalignment. 2. Degenerative changes as above. I personally reviewed the images/study and I agree with the findings as stated by resident Vel Georges. This study was interpreted at [facility], [place], [place]. MACRO: None Signed by: Rebel Prince 12/25/2024 9:39 AM Dictation workstation: [id number] Narrative 12/25/2024 9:39 AM EDT Interpreted By: Rebel Prince and Ritchie Brandon STUDY: XR HIP RIGHT WITH PELVIS WHEN PERFORMED 2 OR 3 VIEWS; ; 12/25/2024 7:08 am INDICATION: Signs/Symptoms:fall, landed on R hip. COMPARISON: None. ACCESSION NUMBER(S): [id number] ORDERING CLINICIAN: SHELIA JENKINS TECHNIQUE: Single view pelvis. Right hip, two views. FINDINGS: The pelvic ring is intact without acute fracture or widening of the pubic symphysis or sacroiliac joints. There is no acute fracture of the proximal right or left femur or hip dislocation. Spsn-ge-tnbopbqj, mdba-gvggonl-qzrx-right, bilateral joint space loss of the hips with scattered osteophyte formation. Moderate colonic stool burden. Moderate degenerative changes of the lower lumbar spine. Procedure Note Rebel Prince, DO - 12/25/2024 Interpreted By: Rebel Prince and Ritchie Brandon STUDY: XR HIP RIGHT WITH PELVIS WHEN PERFORMED 2 OR 3 VIEWS; ; 12/25/2024 7:08 am INDICATION: Signs/Symptoms:fall, landed on R hip. COMPARISON: None. ACCESSION NUMBER(S): [id number] ORDERING CLINICIAN: SHELIA JENKINS TECHNIQUE: Single view pelvis. Right hip, two views. FINDINGS: The pelvic ring is intact without acute fracture or widening of the pubic symphysis or sacroiliac joints. There is no acute fracture of the proximal right or left femur or hip dislocation. Anic-ki-rykydojf, otkf-cjnxxqn-vmep-right, bilateral joint space loss of the hips with scattered osteophyte formation. Moderate colonic stool burden. Moderate degenerative changes of the lower lumbar spine. IMPRESSION: 1. No evidence of acute fracture or traumatic malalignment. 2. Degenerative changes as above. I personally reviewed the images/study and I agree with the findings as stated by resident Vel Georges. This study was interpreted at [place], [place]. MACRO: None Signed by: Rebel Prince 12/25/2024 9:39 AM Dictation workstation: [id number] us Shelia Jenkins MD IMG XR PROCEDURES F inal Result * MR kidney w and wo IV contrast (12/22/2024 9:19 AM EDT) Anatomical Region Laterality Modality Abdominal, Head neck Magnetic Re sonance 12/22/2024 5:35 PM EDT 12/26/2024 8:18 PM EDT Impressions 12/26/2024 8:16 PM EDT 1. Partially exophytic right upper pole renal mass with central necrosis, favored to represent renal cell carcinoma, most likely clear cell subtype. The mass invades the right renal vein at the hilum, without further extension into the more central right renal vein/IVC. The inferior vena cava itself is effaced by the mass by at least 180 degrees, however there is no overt invasion of the inferior vena cava, which appears patent. The right adrenal gland is slightly displaced superiorly, however is not infiltrated by the aforementioned lesion. 2. There is an additional arterially enhancing mass with central necrosis involving the 1st and 2nd segments of the duodenum. There is associated obstruction of the bile ducts of the level of the ampulla and resulting dilation of the common bile duct and intrahepatic bile ducts. The posterior border of the mass focally abuts the superior aspect of the aforementioned left renal lesion, however it is unclear if the 2 masses are contiguous. Differential includes contiguous invasion from the right renal mass into the duodenum, an additional primary malignancy, or a necrotic metastatic lymph node. I personally reviewed the images/study and I agree with the findings as stated by Jorge Luis Redmond MD. This study was interpreted at [facility], [place], [place] MACRO: None Signed by: Lucas Andrews 12/26/2024 8:16 PM Dictation workstation: [id number] Narrative 12/26/2024 8:16 PM EDT Interpreted By: Lucas Andrews and Barbat Antonio STUDY: MR KIDNEY W AND WO IV CONTRAST; 12/22/2024 9:19 am INDICATION: Signs/Symptoms:further evaluation of kidney mass. COMPARISON: Outside CT exam 12/18/2024. ACCESSION NUMBER(S): [id number] ORDERING CLINICIAN: JENNIFER REDDY TECHNIQUE: MRI OF THE KIDNEYS: Multiplanar magnetic resonance images of the abdomen were obtained including the following sequences: T2-weighted SSFSE, T1-weighted GRE in/opposed phase, DWI, fat saturated 3D-T1w GRE pre and dynamically post contrast. 17 ML of Dotarem was administered intravenously without immediate complication. FINDINGS: KIDNEYS AND URETERS: 6.9 x 7.7 x 4.9 cm (cc x AP x axial) partially exophytic mixed cystic/solid mass arising from the upper pole of the right kidney. The mass demonstrates heterogenous T1 intermediate signal and peripheral T2 hyperintense signal/central T2 hypointense signal. The mass avidly enhances peripherally, however the aforementioned T2 hypointense central component does not enhance. The peripheral components demonstrate heterogenous diffusion restriction, however there is facilitated diffusion centrally, consistent with an area of central necrosis. The mass exhibits a drop in signal on opposed phase imaging, suggesting a component of microscopic fat. The mass invades the right renal vein at the hilum (series 19, image 65), however does not extend past this point. The mass additionally effaces the inferior vena cava itself by at least 180 degrees, however there is no overt invasion. The inferior vena cava is patent. The left kidney demonstrates a 1.4 cm T2 hyperintense lesion within the inferior pole without associated enhancement, consistent with a renal cyst. There is no hydroureteronephrosis. LIVER: The liver is at the upper limit of normal in size measuring 18.3 cm. Normal enhancement. Hepatic parenchyma is isointense on T1 in and out of phase sequences. 0.8 cm and 0.5 cm nonenhancing T2 hyperintense lesions within the hepatic dome, favored to represent hepatic cysts. BILE DUCTS: There is obstruction of the common bile duct near the ampulla due to a duodenal mass (described below), with resulting dilation of the extra and intrahepatic bile ducts. The common bile duct measures up to 1.8 cm in diameter. GALLBLADDER: The gallbladder is distended without cholelithiasis or other findings suggestive of acute cholecystitis. PANCREAS: Normal signal intensity. Normal enhancement. No masses. The pancreatic duct is normal. SPLEEN: The spleen is normal in size without evidence of focal lesions. ADRENAL GLANDS: The right adrenal gland is slightly displaced superiorly, however is not infiltrated by the aforementioned right renal mass. The left adrenal gland is within normal limits. LYMPH NODES: No lymphadenopathy. ABDOMINAL VESSELS: Aorta and the major abdominal arterial vessels demonstrate no gross abnormality. Superior mesenteric vein, splenic vein, and main, right and left portal vein are patent. As above, there is invasion of the right renal vein the hilum by the aforementioned mass, without further extension. The inferior vena cava itself is effaced at least 180 degrees effaced by the mass, however there is no overt invasion in the inferior vena cava is patent. There is decreased signal within the hepatic veins, however they appear patent. No significant collaterals or esophageal varices are present. BOWEL: There is a T1/T2 intermediate signal lesion involving the 1st and 2nd portions of the duodenum, which demonstrates intense peripheral arterial enhancement and central hypoenhancement. The posterior border of the mass focally abuts the superior aspect of the aforementioned left renal lesion. Additionally, the mass obstructs the common bile duct near the level of the ampulla. The bowel is otherwise within normal limits. PERITONEUM/RETROPERITONEUM/LYMPH NODES: No ascites. BONES AND LOWER THORAX: No abnormally enhancing focal bony lesions are identified. 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 The visualized lower lung tellez are unremarkable. The heart is normal in size. Procedure Note Lucas Andrews MD - 12/26/2024 Interpreted By: Lucas Andrews and Barbat Antonio STUDY: MR KIDNEY W AND WO IV CONTRAST; 12/22/2024 9:19 am INDICATION: Signs/Symptoms:further evaluation of kidney mass. COMPARISON: Outside CT exam 12/18/2024. ACCESSION NUMBER(S): [id number] ORDERING CLINICIAN: JENNIFER REDDY TECHNIQUE: MRI OF THE KIDNEYS: Multiplanar magnetic resonance images of the abdomen were obtained including the following sequences: T2-weighted SSFSE, T1-weighted GRE in/opposed phase, DWI, fat saturated 3D-T1w GRE pre and dynamically post contrast. 17 ML of Dotarem was administered intravenously without immediate complication. FINDINGS: KIDNEYS AND URETERS: 6.9 x 7.7 x 4.9 cm (cc x AP x axial) partially exophytic mixed cystic/solid mass arising from the upper pole of the right kidney. The mass demonstrates heterogenous T1 intermediate signal and peripheral T2 hyperintense signal/central T2 hypointense signal. The mass avidly enhances peripherally, however the aforementioned T2 hypointense central component does not enhance. The peripheral components demonstrate heterogenous diffusion restriction, however there is facilitated diffusion centrally, consistent with an area of central necrosis. The mass exhibits a drop in signal on opposed phase imaging, suggesting a component of microscopic fat. The mass invades the right renal vein at the hilum (series 19, image 65), however does not extend past this point. The mass additionally effaces the inferior vena cava itself by at least 180 degrees, however there is no overt invasion. The inferior vena cava is patent. The left kidney demonstrates a 1.4 cm T2 hyperintense lesion within the inferior pole without associated enhancement, consistent with a renal cyst. There is no hydroureteronephrosis. LIVER: The liver is at the upper limit of normal in size measuring 18.3 cm. Normal enhancement. Hepatic parenchyma is isointense on T1 in and out of phase sequences. 0.8 cm and 0.5 cm nonenhancing T2 hyperintense lesions within the hepatic dome, favored to represent hepatic cysts. BILE DUCTS: There is obstruction of the common bile duct near the ampulla due to a duodenal mass (described below), with resulting dilation of the extra and intrahepatic bile ducts. The common bile duct measures up to 1.8 cm in diameter. GALLBLADDER: The gallbladder is distended without cholelithiasis or other findings suggestive of acute cholecystitis. PANCREAS: Normal signal intensity. Normal enhancement. No masses. The pancreatic duct is normal. SPLEEN: The spleen is normal in size without evidence of focal lesions. ADRENAL GLANDS: The right adrenal gland is slightly displaced superiorly, however is not infiltrated by the aforementioned right renal mass. The left adrenal gland is within normal limits. LYMPH NODES: No lymphadenopathy. ABDOMINAL VESSELS: Aorta and the major abdominal arterial vessels demonstrate no gross abnormality. Superior mesenteric vein, splenic vein, and main, right and left portal vein are patent. As above, there is invasion of the right renal vein the hilum by the aforementioned mass, without further extension. The inferior vena cava itself is effaced at least 180 degrees effaced by the mass, however there is no overt invasion in the inferior vena cava is patent. There is decreased signal within the hepatic veins, however they appear patent. No significant collaterals or esophageal varices are present. BOWEL: There is a T1/T2 intermediate signal lesion involving the 1st and 2nd portions of the duodenum, which demonstrates intense peripheral arterial enhancement and central hypoenhancement. The posterior border of the mass focally abuts the superior aspect of the aforementioned left renal lesion. Additionally, the mass obstructs the common bile duct near the level of the ampulla. The bowel is otherwise within normal limits. PERITONEUM/RETROPERITONEUM/LYMPH NODES: No ascites. BONES AND LOWER THORAX: No abnormally enhancing focal bony lesions are identified. 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 The visualized lower lung tellez are unremarkable. The heart is normal in size. IMPRESSION: 1. Partially exophytic right upper pole renal mass with central necrosis, favored to represent renal cell carcinoma, most likely clear cell subtype. The mass invades the right renal vein at the hilum, without further extension into the more central right renal vein/IVC. The inferior vena cava itself is effaced by the mass by at least 180 degrees, however there is no overt invasion of the inferior vena cava, which appears patent. The right adrenal gland is slightly displaced superiorly, however is not infiltrated by the aforementioned lesion. 2. There is an additional arterially enhancing mass with central necrosis involving the 1st and 2nd segments of the duodenum. There is associated obstruction of the bile ducts of the level of the ampulla and resulting dilation of the common bile duct and intrahepatic bile ducts. The posterior border of the mass focally abuts the superior aspect of the aforementioned left renal lesion, however it is unclear if the 2 masses are contiguous. Differential includes contiguous invasion from the right renal mass into the duodenum, an additional primary malignancy, or a necrotic metastatic lymph node. I personally reviewed the images/study and I agree with the findings as stated by Jorge Luis Redmond MD. This study was interpreted at [facility], [place], [place] MACRO: None Signed by: Lucas Andrews 12/26/2024 8:16 PM Dictation workstation: [id number] Jennifer Reddy MD IMG MRI PROCEDURES Roxann l Result * Esophagogastroduodenoscopy (EGD) (12/21/2024 5:32 PM EDT) Anatomical Region Laterality Modality Endoscopy Narrative 12/21/2024 5:32 PM EDT Table formatting from the original result was not included. Findings Grade B esophagitis with mucosal breaks measuring 5 mm or more not continuous between folds, covering less than 75% of the circumference in the lower third of the esophagus The stomach appeared normal. In the duodenal bulb, there was extrinsic compression seen, likely from the renal mass. At the junction of the duodenal bulb and post-bulbar duodenum, a nearly obstructing mass with surface ulcerations was noted invading into the duodenum. The gastroscope was able to traverse the mass with significant manipulation with difficulty. Performed forceps biopsies. Multiple biopsies were obtained of the mass in the first portion of the duodenum Recommendation Follow up with primary care physician, Dr. Lester Rodriguez - The patient will be observed post-procedure, until all discharge criteria are met. - [facility]. - Observe patient's clinical course following today's procedure with therapeutic intervention. - Further recommendations as per inpatient GI consult service, Dr. Shelia Jenkins and Dr. Samson Gloria - Follow up with inpatient primary team, Dr. Jennifer Reddy - Follow up with surgical oncology and urology to further discuss timing of surgery Indication Renal mass, Obstructive jaundice ([facility]) Staff Staff Role Daniel Olvera MD Proceduralist Kobe Johns MD Fellow Medications See Anesthesia Record. Preprocedure A history and physical has been performed, and patient medication allergies have been reviewed. The patient's tolerance of previous anesthesia has been reviewed. The risks and benefits of the procedure and the sedation options and risks were discussed with the patient. All questions were answered and informed consent obtained. Details of the Procedure The patient underwent general anesthesia, which was administered by an anesthesia professional. The patient's blood pressure, ECG, ETCO2, heart rate, level of consciousness, respirations and oxygen were monitored throughout the procedure. The scope was introduced through the mouth and advanced to the second part of the duodenum. Retroflexion was performed in the cardia. The patient's estimated blood loss was minimal (<5 mL). The procedure was not difficult. The patient tolerated the procedure well. There were no apparent adverse events. Events Procedure Events Event Event Time Specimens ID Type Source Tests Collected by Time 1 : r/o renal cell carcinoma Tissue DUODENAL BULB BIOPSY SURGICAL PATHOLOGY EXAM Kobe Johns MD 12/21/2024 2691 Procedure Location [address] [address] Referring Provider Kobe Johns MD Procedure Provider Daniel Olvera MD Kobe Johns MD ENDOSCOPY PROCEDURE ORDERABLES Final Result * Endoscopic Retrograde Cholangiopancreatography (ERCP) (12/21/2024 4:22 PM EDT) Anatomical Region Laterality Modality Endoscopy Narrative 12/21/2024 5:20 PM EDT Table formatting from the original result was not included. Findings Ulcerated mass at the post-bulbar junction of the duodenum with severe luminal narrowing and fixation of the duodenum preventing passage of duodenoscope to the second portion of the duodenum/papilla. Fluoroscopy and abdominal pressure was used to try to facilitate scope passage; however, these maneuvers were unsuccessful. Procedure was aborted. Recommendation Follow up with primary care physician, Dr. Lester Rodriguez - The patient will be observed post-procedure, until all discharge criteria are met. - [facility]. - Observe patient's clinical course following today's procedure with therapeutic intervention. - Further recommendations as per inpatient GI consult service, Dr. Shelia Jenkins and Dr. Samson Gloria - Follow up with inpatient primary team, Dr. Jennifer Reddy - Follow up with surgical oncology and urology to further discuss timing of surgery Indication Jaundice, Renal mass, Obstructive jaundice ([facility]) Staff Staff Role Danile Olvera MD Proceduralist Kobe Johns MD Fellow Medications See Anesthesia Record. Preprocedure A history and physical has been performed, and patient medication allergies have been reviewed. The patient's tolerance of previous anesthesia has been reviewed. The risks and benefits of the procedure and the sedation options and risks were discussed with the patient. All questions were answered and informed consent obtained. Rectal Indomethacin was not administered. Details of the Procedure The patient underwent general anesthesia, which was administered by an anesthesia professional. The patient's blood pressure, heart rate, level of consciousness, oxygen, respirations, ECG and ETCO2 were monitored throughout the procedure. The scope was introduced through the mouth and advanced to the first part of the duodenum. The patient experienced no blood loss. The procedure was difficult due to altered anatomy and due to extrinsic mass compression and luminal narrowing from mass invasion. In response to procedure difficulty, abdominal pressure was applied. The patient tolerated the procedure well. There were no apparent adverse events. Events Procedure Events Event Event Time ENDO SCOPE IN TIME 12/21/2024 3:45 PM ENDO SCOPE OUT TIME 12/21/2024 3:54 PM ENDO SCOPE IN TIME 12/21/2024 3:59 PM ENDO SCOPE OUT TIME 12/21/2024 4:10 PM Specimens ID Type Source Tests Collected by Time 1 : r/o renal cell carcinoma Tissue DUODENAL BULB BIOPSY SURGICAL PATHOLOGY EXAM Kobe Johns MD 12/21/2024 [id number] Procedure Location [place] [id number] [place] [facility] [address] Referring Provider Lucie Juarez MD Procedure Provider Daniel Olvera MD Jennifer Reddy MD ENDOSCOPY PROCEDURE ORD ERABLES Final Result * [place] AN ELECTIVE ENDOTRACHEAL AIRWAY (12/21/2024 3:38 PM EDT) Ban Childs CAA - 12/21/2024 3:38 PM EDT EMPERATRIZ Knapp 12/21/2024 3:44 PM Airway Date/Time: 12/21/2024 3:38 PM Urgency: elective Airway not difficult Staffing Performed: EMPERATRIZ Authorized by: Kiera Mcnamara MD Performed by: EMPERATRIZ Knapp Patient location during procedure: OR Indications and Patient Condition Indications for airway management: anesthesia Spontaneous Ventilation: absent Sedation level: deep Preoxygenated: yes Patient position: sniffing Mask difficulty assessment: 1 - vent by mask Final Airway Details Final airway type: endotracheal airway Successful airway: ETT Cuffed: yes Successful intubation technique: video laryngoscopy Facilitating devices/methods: intubating stylet and cricoid pressure Endotracheal tube insertion site: oral Blade: Rob Blade size: #3 ETT size (mm): 7.0 Cormack-Lehane Classification: grade I - full view of glottis Placement verified by: capnometry Measured from: lips ETT to lips (cm): 21 Number of attempts at approach: 1 Kiera Mcnamara MD ANESTHESIA ORDERABLES Final Res ult * CT interpretation of outside films (12/21/2024 1:14 PM EDT) Anatomical Region Laterality Modality Computed Radiogr aphy 12/21/2024 4:55 PM EDT 12/21/2024 4:55 PM EDT Impressions 12/21/2024 4:54 PM EDT 1. Heterogenous enhancing mass in the upper pole of the right kidney, with exophytic extension into the pancreaticoduodenal groove, obstructing the distal CBD, abutting the IVC and invading the duodenum, concerning for renal cell carcinoma. 2. Additional incidental findings as detailed. I personally reviewed the images/study and I agree with the findings as stated by Resident Saloni Avendano. This study was interpreted at [place], [place]. MACRO: None. Signed by: Esvin Sierra 12/21/2024 4:54 PM Dictation workstation: [id number] Narrative 12/21/2024 4:54 PM EDT Interpreted By: Esvin Sierra and Awan Komal STUDY: CT INTERPRETATION OF OUTSIDE FILMS; 12/21/2024 1:14 pm INDICATION: Signs/Symptoms:Interpretation of outside films - painless jaundice 2/2 renal mass, c/f RCC. COMPARISON: None. ACCESSION NUMBER(S): [id number] ORDERING CLINICIAN: JENNIFER REDDY TECHNIQUE: Contiguous axial images of the abdomen and pelvis were obtained after the intravenous administration of iodinated contrast. Coronal and sagittal reformatted images were reconstructed from the axial data. FINDINGS: LOWER CHEST: No acute abnormality. ABDOMEN/PELVIS: ABDOMINAL WALL: No significant abnormality. LIVER: No significant parenchymal abnormality. BILE DUCTS: The intrahepatic and extrahepatic bile ducts are dilated.. GALLBLADDER: No significant abnormality. PANCREAS: No significant abnormality. SPLEEN: No significant abnormality. ADRENALS: No significant abnormality. KIDNEYS, URETERS, BLADDER: There is a heterogenous enhancing mass measuring up to 6.1 cm in the upper pole of the right kidney, with an exophytic component extending anteriorly into the pancreaticoduodenal groove. This mass obstructs the distal common bile duct, abuts the IVC and invades the duodenum. Left kidney appears normal. REPRODUCTIVE ORGANS: No significant abnormality. VESSELS: [id number] aortoiliac calcifications noted. RETROPERITONEUM/LYMPH NODES: No enlarged lymph nodes. No acute retroperitoneal abnormality. BOWEL/MESENTERY/PERITONEUM: No inflammatory bowel wall thickening or dilatation. Normal appendix. No ascites, free air, or fluid collection. MUSCULOSKELETAL: No suspicious osseous lesion. Multilevel degenerative changes present throughout the thoracolumbar spine. Procedure Note Esvin Sierra MD - 12/21/2024 Interpreted By: Esvin Sirera and Awan Komal STUDY: CT INTERPRETATION OF OUTSIDE FILMS; 12/21/2024 1:14 pm INDICATION: Signs/Symptoms:Interpretation of outside films - painless jaundice 2/2 renal mass, c/f RCC. COMPARISON: None. ACCESSION NUMBER(S): [id number] ORDERING CLINICIAN: JENNIFER REDDY TECHNIQUE: Contiguous axial images of the abdomen and pelvis were obtained after the intravenous administration of iodinated contrast. Coronal and sagittal reformatted images were reconstructed from the axial data. FINDINGS: LOWER CHEST: No acute abnormality. ABDOMEN/PELVIS: ABDOMINAL WALL: No significant abnormality. LIVER: No significant parenchymal abnormality. BILE DUCTS: The intrahepatic and extrahepatic bile ducts are dilated.. GALLBLADDER: No significant abnormality. PANCREAS: No significant abnormality. SPLEEN: No significant abnormality. ADRENALS: No significant abnormality. KIDNEYS, URETERS, BLADDER: There is a heterogenous enhancing mass measuring up to 6.1 cm in the upper pole of the right kidney, with an exophytic component extending anteriorly into the pancreaticoduodenal groove. This mass obstructs the distal common bile duct, abuts the IVC and invades the duodenum. Left kidney appears normal. REPRODUCTIVE ORGANS: No significant abnormality. VESSELS: [id number] aortoiliac calcifications noted. RETROPERITONEUM/LYMPH NODES: No enlarged lymph nodes. No acute retroperitoneal abnormality. BOWEL/MESENTERY/PERITONEUM: No inflammatory bowel wall thickening or dilatation. Normal appendix. No ascites, free air, or fluid collection. MUSCULOSKELETAL: No suspicious osseous lesion. Multilevel degenerative changes present throughout the thoracolumbar spine. IMPRESSION: 1. Heterogenous enhancing mass in the upper pole of the right kidney, with exophytic extension into the pancreaticoduodenal groove, obstructing the distal CBD, abutting the IVC and invading the duodenum, concerning for renal cell carcinoma. 2. Additional incidental findings as detailed. I personally reviewed the images/study and I agree with the findings as stated by Resident Saloni Avendano. This study was interpreted at [facility], [place], [place]. MACRO: None. Signed by: Esvin Sierra 12/21/2024 4:54 PM Dictation workstation: [id number] Jennifer Reddy MD IMG CT PROCEDURES Final Result from Last 3 Months Insurance MEDICARE PART A AND B [facility] MEDICARE SUPPLEMENT MEDICARE PART A AND B [facility] MEDICARE SUPPLEMENT Advance Directives For more information, please contact: [phone] (Available ) * Full Code (Latest Code Status on File) Date Activated Date Inactivated Comments 12/18/2024 10:35 PM Question Answer Comments Plan of Care: Code Status Discussion Completed Decision Maker: Patient Care Teams Magnetic Tape Typewriter Operator Relationship Specialty Start Date End Date Generic Provider, No Assigned Pcp, NONE DOTTIE CONNELLY [id number] PCP - General Biomedical Electronics Technician 01/25/25
--- OUTSIDE RECORDS SUMMARY | 2025-03-23 09:06 | XMS_ITS | Encounter Summary ---
Author Organization [facility] Address [address] [place] [address] Phone Care Team Providers Care Laborer [employer] Name Role Phone Generic Provider, No Assigned Pcp MD Primary Car e Provider Unavailable Encounter Details Date Type Department Care Team (Late st Contact Info) Description 03/11/2025 Scanned Document [facility] [address] [place] [id number] Linnette Garcia MD [address] [place] [address] Social History Tobacco Use Types Packs/Day Years Used Date Smoking Tobacco: Never Smokeless Tobacco: Never Alcohol Use Standard Drinks/Week Comments Not Currently 0 (1 standard drink = 0.6 oz pur e alcohol) [facility] Utilities Answer Date Recorded In the [...] any time in the past 12 m [facility], were you homeless or living in a fci (including now)? No 01/28/2025 Comments No Sex [...] documented as of this encounter Visit Diagnoses Not on filedocumented in this encounter Care Teams Laborer [employer] Relationship Specialty Start Date End Date Generic Provider, No Assigned Pcp, [place] [address] PCP - General Assistant Pastry Chef 01/25/25 documented as of this encounter
--- OUTSIDE RECORDS SUMMARY | 2025-03-23 09:07 | XMS_ITS | Encounter Summary ---
Author Organization [facility] Address [address] [facility] [place] [address] Care Team Providers Care Drill Runner Name Role Phone Maxine Lake MD Unavailable [phone] Lester Rodriguez DO Primary Care Provider + [phone] Reason for Referral * Medications - Closed Specialty Diagnoses / Procedures Referred By Contac t Referred To Contact Diagnoses Lesion of left ulnar nerve Jonah Judd DO [address] [place] [address] Phone: tel: fax: Referral ID Status Reason Start Date Expiration Date Visits Re quested Visits Authorized [id number] Closed 1 1 Encounter Details Date Type Department Care Team (Late st Contact Info) Description 08/05/2024 Orders Only [facility] [address] [place] [id number] Jonah Judd DO [address] [place] [address] Lesion of left ulnar nerve (Primary Dx) Social History Tobacco Use Types Packs/Day Years Used Date Smoking Tobacco: Never Smokeless Tobacco: Never Comments Unknown Sex and Gender Information Value Date Recorded Sex Assigned at Not on file Legal Sex Female 7:12 PM EDT Gender Identity Not on file Sexual Orientation Not on file documented as of this encounter Plan of Treatment Not on file documented as of this encounter Visit Diagnoses Diagnosis Lesion of left ulnar nerve- Primary documented in this encounter Care Teams Drill Runner Relationship Specialty Start Date End Date Lestre Rodriguez DO [address] [place] [address] PCP - General Family Medicine 07/16/24 Maxine Lake MD [address] [place] [address] Referring Physician Family Medicine 06/25/24 documented as of this encounter
--- OUTSIDE RECORDS SUMMARY | 2025-03-23 09:07 | XMS_ITS ---
Author Organization [facility] Address [address] [place] [address] Phone Care Team Providers Care Street Superintendent Name Role Phone Generic Provider, No Assigned Pcp MD Primary Car e Provider Unavailable Active Problems Problem Noted Date Diagnosed Date Renal cell cancer, right (Multi) 01/26/2025 Anemia 01/26/2025 Renal cell carcinoma of right kidney 12/23/2024 HTN (hypertension) 12/21/2024 Hyperlipidemia 12/21/2024 Jaundice 12/18/2024 Current Treatment and Therapy Plans No current plan information found. Past Treatment and Therapy Plans No past plan information found. Lifetime Dose Tracking * Chemical Lifetime Dose Automatic Entry Manual Entr y Air Kerma 41.14 mGy 41.14 mGy 0 mGy
--- OUTSIDE RECORDS SUMMARY | 2025-03-23 09:07 | XMS_ITS | Clinical Summary ---
Author Organization [facility] Address [address] [place] [address] Care Team Providers Care Bait Digger Name Role Phone Maxine Lake MD Unavailable [phone] Lester Rodriguez DO Primary Care Provider [phone] Allergies Active Allergy Reactions Criticality Noted Date Comments Aspirin 02/03/2024 Penicillin G Low 06/22/2024 Penicillins Rash Low 02/03/2024 Sulfa Antibiotics High 02/03/2024 Other Reaction(s): Palpitations Medications atorvastatin (Lipitor) 20 MG tablet Take 20 mg by mouth Daily Active hydroCHLOROthiaz geremias (Microzide) 12.5 MG capsule Take 12.5 mg by mouth Daily 12/24/2023 Active gabapentin (Neurontin) 100 MG capsule 100 mg = 1 cap(s), Oral, TID, # 90 cap(s), Refills(s) 0, Pharmacy: [id number], 163, cm, 06/08/24 15:28:00 EDT, Height/Arabella th Dosing, 87.9, kg, 06/08/24 15:28:00 EDT, Weight Dosing 06/08/2024 Active Active Problems Problem Noted Date Diagnosed Date Age-related nuclear cataract of both eyes 2023 Immunizations Immunization Administration Dates Next Due Influenza, High-dose Seasona l, Quadrivalent, Preservative Free 06/20/2022 Influenza, Seasonal, Quadrivalent, Adjuvanted ,07/20/2021 Influenza, Unspecified 06/17/2020 Family History Medical History Relation Name Comments Cataracts Father Glaucoma Father Hyperlipidemia Father Hypertension Father Depression Mother Hyperlipidemia Mother Hypertension Mother Macular degeneration Mother Stroke Mother Glaucoma Paternal Grandfather Retinal detachment Paternal Grandfather Glaucoma Paternal Grandmother Relation Name Status Comments Father Mother Paternal Grandfather Paternal Grandmother Social History Tobacco Use Types Packs/Day Years Used Date Smoking Tobacco: Never Smokeless Tobacco: Never Alcohol Use Standard Drinks/Week Comments Not Currently 1 (1 standard drink = 0.6 oz pur e alcohol) Comments No Sex and Gender Information Value Date Recorded Sex Assigned at Not on file Legal Sex Female 7:12 PM EDT Gender Identity Not on file Sexual Orientation Not on file Last Filed Vital Signs Vital Sign Reading Time Taken Comments Blood Pressure 126/88 12/18/2024 10:00 AM EDT Pulse 78 12/18/2024 10:00 AM EDT Temperature 36.6 C (97.8 F) 12/18/2024 10:00 AM EDT Respiratory Rate - - Oxygen Saturation 98% 12/18/2024 10:00 AM EDT Inhaled Oxygen Concentration - - Weight 88.9 kg (196 lb) 12/18/2024 10:00 AM EDT Height 165.1 cm (5' 5 ) 08/19/2024 1:17 PM EST Body Mass Index 32.62 08/19/2024 1:17 PM EST Plan of Treatment Health Maintenance Due Date Last Done Comments CT Colonography 1955 FIT-DNA 1955 FIT 1955 FOBT 1955 Sigmoidoscopy 1955 Mammogram 1996 Pneumococcal Vaccine: 65+ Ye ars (1 of 1 - PCV) 2006 Colonoscopy 07/29/2023 07/29/2013 Colorectal Cancer Screening 07/29/2023 Influenza Vaccine Completed 07/15/2024, , 06/20/2022, Additional history exists Insurance [employer] Care Teams Bait Digger Relationship Specialty Start Date End Date Lester Rodriguez DO [address] [facility] [address] [place] [id number] PCP - General Family Medicine 07/16/24 Maxine Lake MD [address] [facility] [address] [place] [id number] Referring Physician Family Medicine 06/25/24
[2025-03-23 10:07] LABS: Basophils Percent Auto 0.5 % (0.2-2.0); Eosinophils Absolute Auto 0.1 10^3/uL (0.0-0.7); Eosinophils Percent Auto 1.9 % (0.9-7.0); Hemoglobin 11.4 g/dL (12.0-16.0); Immature Granulocytes Abs Auto 0.01 10^3/uL (0.00-0.03); Immature Granulocytes Pct Auto 0.2 % (0.0-0.5); Lymphocytes Absolute Auto 1.2 10^3/uL (1.2-3.8); Lymphocytes Percent Auto 20.3 % (20.5-60.0); Mean Corpuscular HGB Conc 31.7 g/dL (29.9-35.2); Mean Corpuscular Hemoglobin 26.6 pg (26.7-34.0); Mean Corpuscular Volume 84.1 fL (81.0-99.0); Mean Platelet Volume 12.1 fL (9.5-13.5); Monocytes Absolute Auto 0.3 10^3/uL (0.3-0.8); Monocytes Percent Auto 5.2 % (1.7-12.0); Neutrophils Absolute Auto 4.2 10^3/uL (1.4-6.5); Neutrophils Percent Auto 71.9 % (43.0-75.0); Platelet Count 197 10^3/uL (150-450); Red Blood Count 4.28 10^6/uL (4.20-5.40); Red Cell Distribution Width 16.2 % (11.0-15.0); White Blood Count 5.8 10^3/uL (4.0-11.0)
[2025-03-23 10:27] LABS: Alanine Aminotransferase 36 U/L (14-59); Albumin Level 3.3 g/dL (3.4-5.0); Alkaline Phosphatase 79 U/L (46-116); Anion Gap 9.3; Aspartate Amino Transferase 35 U/L (15-37); BUN Creatinine Ratio 11.1; Bilirubin Total 0.5 mg/dL (0.2-1.0); Calcium 8.9 mg/dL (8.5-10.1); Carbon Dioxide 31.3 mmol/L (21.0-32.0); Chloride 107 mmol/L (98-107); Estimated GFR (African America 51 (>=60 mL/min/1.73m^2); Estimated GFR (Non-African Ame 42 (>=60 mL/min/1.73m^2); Globulin 3.3 g/dL; Glucose 98 mg/dL (74-106); Potassium 3.6 mmol/L (3.5-5.1); Sodium 144 mmol/L (136-145); Total Protein 6.6 g/dL (6.4-8.2)
[2025-03-23 10:46] LABS: Thyroid Stimulating Hormone 4.627 uIU/mL (0.358-3.740)
[2025-03-23 11:14] LABS: Free T4 1.05 ng/dL (0.76-1.46)
[2025-03-24 14:09] LABS: ACTH, Plasma 13.3 pg/mL (7.2-63.3)
== END 2025-03-23 08:55 | disposition home or self-care (01) ==
DX: C64.1 Malignant neoplasm of right kidney, except renal pelvis (principal); R53.83 Other fatigue
CPT/HCPCS: 36415; 80053; 82024; 82533; 84439; 84443; 85025

== ENCOUNTER 2025-09-04 14:29 | Emergency (ER) | payer MEDICARE, OTHER, SELFPAY ==
[2025-09-04] VITALS (25 sets, daily range): BP systolic 107–110; BP diastolic 70–78; PULSE 74–104; TEMP 36.6; O2SAT 97–100; BMI 24.0
--- NOTE | 2025-09-04 14:41 | ECG_ITS ---
[facility] Test Date: 2025-09-04 Pat Name: JAYLEN ZAMORANO Department: Room: - Gender: Female [employer]: : 1955 Requested By: [id number] Order Number: [id number] Reading MD: KISHORE GRUBER M.D. Measurements Intervals [place]oy Rate: 84 P: 30 [place]: 160 QRS: 5 QRSD: 84 T: 38 QT: 352 QTc: 393 Interpretive Statements 1100 Sinus rhythm 3113 Cannot rule out anterior myocardial infarction, probably old 9150 abnormal ECG No previous ECG available for comparison Electronically Signed On 09-04-2025 15:09:46 EST by KISHORE GRUBER M.D.
--- NOTE | 2025-09-04 14:41 | XR_ITS ---
[address] [address] Patient Name: JAYLEN ZAMORANO MRN: [id number] date: 1955 Sex: F Assigned Patient Location: ED.MAIN Current Patient Location: ED.MAIN Accession/Order Number: [id number] Exam Date: 09/04/2025 15:40 Report Date: 09/04/2025 16:44 At the request of: BENJAMIN SANTOS MD Procedure: XR chest 1V PA CHEST: CLINICAL HISTORY: weak COMPARISON: None Elevation right hemidiaphragm. Minimal bibasilar atelectasis or scarring. Otherwise unremarkable cardiomediastinal silhouette. Lungs are clear. No effusion or pneumothorax. XR/XR chest 1V IMPRESSION: Bibasilar atelectasis and or scarring. Otherwise no definite acute airspace disease. Impression dictated by: Chet Caro M.D. 09/04/2025 4:44 PM Dictation Location: [place] [address] Electronically authenticated by: [id number] Y Date: 09/04/2025 16:44
--- NOTE | 2025-09-04 14:41 | ED.GENADUL1 ---
HPI HPI - General Adult General Chief complaint: Weakness Stated complaint: DEHYDRATION WEAKNESS Time Seen by Provider: 09/04/25 14:36 History of Present Illness HPI narrative: 70-year-old female presented to the emergency department for weakness. She states she has had a poor appetite for few weeks and has been able to eat or drink anything but she has been taking her oral medications. She talked to her oncologist who recommended that she go to the emergency department. She has a history of renal cell carcinoma and had surgery but she states that there is a recurrence and she is on oral chemotherapeutic. She has no chest pain. Related Data Home Medications ?Medication ?Instructions ?Recorded ?Confirmed amlodipine 10 mg tablet 10 mg PO DAILY 09/04/25 09/04/25 everolimus (antineoplastic) 5 mg 5 mg PO DAILY 09/04/25 09/04/25 tablet ferrous sulfate 325 mg (65 mg 325 mg PO DAILY 09/04/25 09/04/25 iron) tablet lenvatinib 18 mg/day (10 mg x 1 18 mg PO Q24H 09/04/25 09/04/25 and 4 mg x 2) capsule (Lenvima) ondansetron 8 mg disintegrating 8 mg translingual Q8H 09/04/25 09/04/25 tablet pantoprazole 40 mg tablet,delayed 40 mg PO DAILY 09/04/25 09/04/25 release Allergies Allergy/AdvReac Type Severity Reaction Status Date / Time Penicillins Allergy Severe Unknown Verified 09/04/25 14:36 Sulfa (Sulfonamide Allergy Severe swelling Verified 09/04/25 14:36 Antibiotics) in head aspirin Allergy Unknown Unknown Verified 09/04/25 14:36 Review of Systems ROS Narrative A ten point review of systems is negative except as noted above. PFSH PFSH Social History Little interest or pleasure in doing things: not at all Feeling down, depressed, or hopeless: not at all Exam Narrative Exam Narrative: Nurses note and vital signs reviewed General:The patient appears well and in no apparent distress.Patient is resting comfortably on cart. Skin:Warm, dry, pallor noted.There is no rash noted. Head:Normocephalic, atraumatic Eye: Normal conjunctiva, no drainage Ears, Nose, Mouth, and Throat: oral mucosa is dry. Nares patent. Cardiovascular:Regular Rate and Rhythm Respiratory:Patient is in no distress, no accessory muscle use, lungs are clear to auscultation, no wheezing, rales or rhonchi Back:non-tender GI: Soft and nontender Musculoskeletal: The patient has no evidence of calf tenderness, no pitting edema, symmetrical pulses noted bilaterally Neurological:A&O, normal speech Psychiatric:Cooperative Constitutional Vital Signs, click to edit/add: Last Vital Signs Temp 97.9 F 09/04/25 14:36 Pulse 78 09/04/25 16:40 Resp 16 09/04/25 16:40 BP 107/78 09/04/25 14:42 Pulse Ox 100 09/04/25 15:10 O2 Del Method Room Air 09/04/25 14:36 Course Vital Signs Vital signs: Vital Signs Temperature 97.9 F 09/04/25 14:36 Pulse Rate 91 H 09/04/25 14:36 Respiratory Rate 16 09/04/25 14:36 Blood Pressure 107/78 09/04/25 14:36 Pulse Oximetry 97 09/04/25 14:36 Oxygen Delivery Method Room Air 09/04/25 14:36 Temperature 97.9 F 09/04/25 14:36 Pulse Rate 78 09/04/25 16:40 Respiratory Rate 16 09/04/25 16:40 Blood Pressure 107/78 09/04/25 14:42 Pulse Oximetry 100 09/04/25 15:10 Oxygen Delivery Method Room Air 09/04/25 14:36 Medical Decision Making MDM Narrative Medical decision making narrative: The patient was given IV fluids and feels improved. She is ambulatory. Blood work is nonspecific. No evidence of UTI or significant dehydration. She was offered admission in the hospital and prefers to go home. She will return if symptoms worsen. Findings were discussed with the patient and her family. Differential Diagnosis Differential Diagnosis: Dehydration, acute kidney injury, anemia, UTI Lab Data Lab results reviewed: Yes I reviewed the patient's lab results Labs: Lab Results 09/04/25 09/04/25 Range/Units 14:50 17:20 WBC 8.4 (4.0-11.0) 10^3/uL RBC 4.79 (4.20-5.40) 10^6/uL Hgb 10.4 L (12.0-16.0) g/dL Hct 34.7 L (36.0-48.0) % MCV 72.4 L (81.0-99.0) fL MCH 21.7 L (26.7-34.0) pg MCHC 30.0 (29.9-35.2) g/dL RDW 17.6 H (11.0-15.0) % Plt Count 152 (150-450) 10^3/uL Neut % (Auto) 61.7 (43.0-75.0) % Lymph % (Auto) 31.4 (20.5-60.0) % Stanton % (Auto) 4.9 (1.7-12.0) % Eos % (Auto) 0.8 L (0.9-7.0) % Baso % (Auto) 0.5 (0.2-2.0) % Neut # (Auto) 5.2 (1.4-6.5) 10^3/uL Lymph # (Auto) 2.7 (1.2-3.8) 10^3/uL Stanton # (Auto) 0.4 (0.3-0.8) 10^3/uL Eos # (Auto) 0.1 (0.0-0.7) 10^3/uL Baso # (Auto) 0.0 (0.0-0.1) 10^3/uL Abs Immat Gran (auto) 0.06 H (0.00-0.03) 10^3/uL Imm/Tot Granulo (auto) 0.7 H (0.0-0.5) % Sodium 138 (136-145) mmol/L Potassium 4.1 (3.5-5.1) mmol/L Chloride 103 (98-107) mmol/L Carbon Dioxide 22.0 (21.0-32.0) mmol/L Anion Gap 17.1 BUN 30.0 H (7.0-18.0) mg/dL Creatinine 1.50 H (0.55-1.02) mg/dL Est GFR ( Amer) 42 L (>=60 mL/min/1.73m^2) Est GFR (Non-Af Amer) 34 L (>=60 mL/min/1.73m^2) BUN/Creatinine Ratio 20.0 Glucose 95 (74-106) mg/dL Calcium 8.2 L (8.5-10.1) mg/dL Total Bilirubin 0.4 (0.2-1.0) mg/dL Direct Bilirubin 0.1 (0.0-0.2) mg/dL AST 24 (15-37) U/L ALT 17 (14-59) U/L Alkaline Phosphatase 134 H (46-116) U/L Total Protein 6.1 L (6.4-8.2) g/dL Albumin 1.7 L (3.4-5.0) g/dL Globulin 4.4 g/dL Albumin/Globulin Ratio 0.4 Urine Color Lt. yellow (YELLOW) Urine Clarity Clear (CLEAR) Urine pH 5.5 (5.0-9.0) Ur Specific [place] 1.020 (1.005-1.025) Urine Protein 30 A (NEG/TRACE) mg/dL Urine Glucose (UA) Negative (NEGATIVE) mg/dL Urine Ketones Negative (NEGATIVE) mg/dL Urine Occult Blood Negative (NEGATIVE) Urine Nitrite Negative (NEGATIVE) Urine Bilirubin Negative (NEGATIVE) Urine Urobilinogen 0.2 (0.2-1.0) EU/dL Ur Leukocyte Esterase Negative (NEGATIVE) Urine RBC 0-2 (0-2) #/HPF Urine WBC 0-2 A (NONE SEEN) #/HPF Ur Squamous Epith Cells Few A (NONE/RARE) #/LPF Urine Crystals None seen (None Seen) #/HPF Urine Bacteria Trace A (NONE SEEN) #/HPF Urine Casts None seen (NONE SEEN) #/LPF Urine Mucus None seen (NONE SEEN) Imaging Data Chest x-ray: Radiologist's impression: ITS Impressions Chest X-Ray 09/04/25 14:41 IMPRESSION: Bibasilar atelectasis and or scarring. Otherwise no definite acute airspace disease. Impression dictated by: Chet Caro M.D. 09/04/2025 4:44 PM Dictation Location: [place] [address] Electronically authenticated by: [id number] Y Date: 09/04/2025 16:44 ECG Data Attestation: I personally reviewed and interpreted this ECG as follows: (EKG on my interpretation shows sinus rhythm with rate of 84 no acute change) Discharge Plan Discharge Chief Complaint: Weakness Clinical Impression: Generalized weakness Patient Disposition: Home, Self-Care Time of Disposition Decision: 18:12 Condition: Good Mode of Transportation: Private Vehicle Prescriptions / Home Meds: No Action amlodipine 10 mg tablet 10 mg PO DAILY everolimus (antineoplastic) 5 mg tablet 5 mg PO DAILY ferrous sulfate 325 mg (65 mg iron) tablet 325 mg PO DAILY Lenvima 18 mg/day (10 mg x 1-4 mg x2) capsule 18 mg PO Q24H ondansetron 8 mg tablet,disintegrating 8 mg translingual Q8H pantoprazole 40 mg tablet,delayed release (DR/EC) 40 mg PO DAILY Print Language: Belarusian Instructions: Weakness (ED) Referrals: Physician,Non-Staff, MD [Primary Care Provider] - 1 week
[2025-09-04] MEDS: 0.9 % SODIUM CHLORIDE 1,000 ML 1000 ML IV (15:02)
[2025-09-04 15:17] LABS: Hematocrit 34.7 % (36.0-48.0); Hemoglobin 10.4 g/dL (12.0-16.0); Immature Granulocytes Abs Auto 0.06 10^3/uL (0.00-0.03); Immature Granulocytes Pct Auto 0.7 % (0.0-0.5); Lymphocytes Absolute Auto 2.7 10^3/uL (1.2-3.8); Mean Corpuscular HGB Conc 30.0 g/dL (29.9-35.2); Mean Corpuscular Hemoglobin 21.7 pg (26.7-34.0); Mean Corpuscular Volume 72.4 fL (81.0-99.0); Platelet Count 152 10^3/uL (150-450); Red Blood Count 4.79 10^6/uL (4.20-5.40); White Blood Count 8.4 10^3/uL (4.0-11.0)
--- OUTSIDE RECORDS SUMMARY | 2025-09-04 15:20 | XMS_ITS | Clinical Summary ---
Author Organization [facility] Address [address] [place] [address] Phone Care Team Providers Care Product Craftsman Name Role Phone Generic Provider, No Assigned Pcp MD Primary Car e Provider Unavailable Lee Ann Jimenez RN Unavailable Unavailable Tejas Morel MD Unavailable [phone] Aditi Kapoor Unavailable Unavailabl e Allergies Active AllergyReactionsCriticalityNoted DateCommentsAspirinGI UpsetMedium 12/18/20247985XoumbsnsqzzAnwiqkegjgqsPdc22/21/2025 Tolerated ceftriaxone 11/2024 Sulfa (Sulfonamide Antibiotics)ZgswfgntjydWouv67/21/2025 Medications MedicationSigDispense QuantityRefillsLast FilledStart DateEnd DateStatus pantoprazole (ProtoNix) 40 mg EC tablet Indications:Renal cell cancer, right (Multi)Take 1 tablet (40 mg) by mouth once daily in the morning. Take before meals. Do not crush, chew, orsplit. 30 tablet 5Active acetaminophen (Tylenol) 325 mg tablet Indications:Renal cell cancer, right (Multi)Take 2 tablets (650 mg) by mouth every 6 hours.5Active Additional Information Patient not taking.Reported on 08/09/2025 polyethylene glycol (Glycolax, Miralax) 17 gram packet Indications:Renal cell cancer, right (Multi)Take 17 g by mouth once daily. 5Active Additional Information Patient not taking.Reported on 08/09/2025 sennosides-docusate sodium (Belen-Colace) 8.6-50 mg tablet Indications:Renal cell cancer, right (Multi)Take 2 tablets by mouth 2 times a day.5Active Additional Information Patient not taking.Reported on 08/09/2025 enoxaparin (Lovenox) 40 mg/0.4 mL syringe Indications:Renal cell cancer, right (Multi)Inject 0.4 mL (40 mg) under the skin once daily. 21 each 5Active multivitamin tablet Take 1 tablet by mouth once daily.Active amLODIPine (Norvasc) 10 mg tablet Indications:Renal cell cancer, right (Multi)TAKE 1 TABLET BY MOUTH ONCE DAILY. DO NOT FILL BEFORE FEBRUARY 03, 2025 90 tablet 5Active dexAMETHasone 0.5 mg/5 mL oral liquid SWISH 10 ML FOR 2 MINUTES THEN SPIT FOUR TIMES DAILY FOR AT LEAST FIRST 8 WEEKS OF TREATMENT 1200 mL 5Active everolimus (Afinitor) 5 mg tablet Take 1 tablet (5 mg) orally daily 28 tablet 4:19 PM EST5Active lenvatinib 18 mg daily dose (Lenvima) 10 mg & 2 x 4 mg capsule therapy pack Take 1-10 mg capsule with 2-4 mg capsules together (18 mg total dose) by mouth daily for 30 days 90 capsule 4:19 PM EST5Active cabozantinib (Cabometyx) 40 mg tablet Take 1 tablet (40 mg) orally daily 30 tablet Discontinued(External source cancellation) Active Problems ProblemNoted DateDiagnosed DateRenal cell cancer, right01/26/2025nemia 01/26/2025Renal cell carcinoma of right yngzpx4712/23/2024HTN (hypertension) 12/21/20245131Retbiatkpssllz81/24/6846Vovjwjcu95/21/2025 Encounters DateTypeDepartmentCare HthnVmxdosdurfp92/05/2025Specialty Pharmacy [facility] [address] [place] [phone] Stephanie Benson, PharmD Oncology 14 Day Assessment - dexamethasone, enoxaparin sodium (Lovenox), everolimus (Afinitor), lenvatinib mesylate (Lenvima) for Oncology Core08/20/2025 Specialty Pharmacy Specialty Pharmacy [facility] [place] [phone] Stephanie Benson, PharmD Initial Patient Education - dexamethasone, enoxaparin sodium (Lovenox), everolimus (Afinitor) for Oncology Core08/13/2025Scanned Document [facility] [address] [place] [phone] Scanning, Generic Provider 08/10/2025Specialty Pharmacy [facility] [address] [place] [phone] Nicole Mejia Set Up Initial Fill - Outreach Call - dexamethasone, enoxaparin sodium (Lovenox), everolimus (Afinitor) for Oncology Core, Patient Contact - New Therapy - dexamethasone for Oncology Core08/09/2025 4:00 PM ESTOffice Visit [facility] [address] [place] [address] Tejas Morel MD Renal cell carcinoma of right kidney (Primary Dx)08/09/20259815Uenpsc46/07/2025 Transcribe Orders [facility] [place] [address] [place] [phone] Tejas Morel MD Malignant neoplasm of right kidney, except renal pelvis (Multi) (Primary Dx) 08/06/2025Specialty Pharmacy [facility] [address] [place] [phone] Leti Mckeon 08/05/2025Patient Outreach [facility] [address] [place] [address] Lee Ann Jimenez RN from Last 3 Months Family History Medical HistoryRelationNameCommentsNo Known ProblemsFatherNo Known Problems MotherHeart diseaseMother's SisterRelationNameStatusCommentsFatherMotherMother's SisterAlive Social History Tobacco UseTypesPacks/DayYears UsedDateSmoking Tobacco: NeverSmokeless Tobacco: Never Tobacco Cessation:Counseling Given: Not Answered Alcohol UseStandard Drinks/WeekCommentsYes0 (1 standard drink = 0.6 oz pure alcohol)Overall Financial Resource Strain (CARDIA)AnswerDate RecordedHow hard is it for you to pay for the very basics like food, housing, medical care, and heating?Not hard at all01/28/2025PHQ-2AnswerDate RecordedPatient Health Questionnaire-2 Iksfy546PRAPARE - TransportationAnswerDate RecordedIn the past 12 months, has lack of transportation kept you from medical appointments or from getting medications?No01/28/2025In the past 12 months, has lack of transportation kept you from meetings, work, or from getting things needed for daily living?No01/28/2025Housing Stability Vital SignAnswerDate RecordedIn the last 12 months, was there a time when you were not able to pay the mortgage or rent on time?No01/28/2025In the past 12 months, how many times have you moved where you were living?t any time in the past 12 months, were you homeless or living in a care home (including now)?01/28/2025 Humiliation, Afraid, Rape, and Kick questionnaireAnswerDate RecordedWithin the last year, have you been afraid of your partner or ex-partner?08/09/2025Within the last year, have you been humiliated or emotionally abused in other ways by your partner or ex-partner?08/09/2025Within the last year, have you been kicked, hit, slapped, or otherwise physically hurt by your partner or ex-partner?08/09/2025Within the last year, have you been raped or forced to have any kind of sexual activity by your partner or ex-partner?08/09/2025 Social Connection and Isolation PanelAnswerDate RecordedIn a typical week, how many times do you talk on the phone with family, friends, or neighbors?Three times a week08/09/2025How often do you get together with friends or relatives? Once a week08/09/2025How often do you attend voodoo or yazidism services?Never 08/09/2025Do you belong to any clubs or organizations such as voodoo groups, unions, fraternal or athletic groups, or school groups?No08/09/2025How often do you attend meetings of the clubs or organizations you belong to?Never08/09/2025 Are you , , , , never , or living with a partner?Mqzyiyup09/10/2025UDIT-CAnswerDate RecordedQ1: How often do you have a drink containing alcohol?Monthly or less08/09/2025Q2: How many drinks containing alcohol do you have on a typical day when you are drinking?1 or Q3: How often do you have six or more drinks on one occasion?Never08/09/2025[facility] of Occupational Health - Occupational Stress QuestionnaireAnswerDate RecordedDo you feel stress - tense, restless, nervous, or anxious, or unable to sleep at night because yourmind is troubled all the time - these days?Only a wrfarw5608/09/2025Exercise Vital SignAnswerDate RecordedOn average, how many days per week do you engage in moderate to strenuous exercise (like a brisk walk)?0 days08/09/2025On average, how many minutes do you engage in exercise at this level?0 min08/09/2025Hunger Vital SignAnswerDate RecordedWithin the past 12 months, you worried that your food would run out before you got the money to buy more.Never true08/09/2025Within the past 12 months, the food you bought just didn't last and you didn't have money to get more.Never true08/09/2025PRAPARE - TransportationAnswerDate RecordedIn the past 12 months, has lack of transportation kept you from medical appointments or from getting medications?No 08/09/2025In the past 12 months, has lack of transportation kept you from meetings, work, or from getting things needed for daily living?No08/09/2025 Housing Stability Vital SignAnswerDate RecordedIn the last 12 months, was there a time when you were not able to pay the mortgage or rent on time?No08/09/2025 Number of Times Moved in the Last YearNot on file08/09/2025t any time in the past 12 months, were you homeless or living in a care home (including now)?No 08/09/2025B1300 Health LiteracyAnswerDate RecordedHow often do you need to have someone help you when you read instructions, pamphlets, or other written material from your doctor or pharmacy?Never08/09/2025HC UtilitiesAnswerDate RecordedIn the past 12 months has the [employer] gas, oil, or water [employer] threatened to shut off services in your home?No08/09/2025Digital Health Equity ScreeningAnswerDate RecordedWhich of the following do you know how to use AND have access to every day? (choose all that apply)Desktop computer, laptop computer, or tablet with broadband internet connection;Smartphone with cellular data plan08/09/2025Requested supportNot on file08/09/2025CommentsNoSex and Gender InformationValueDate RecordedSex Assigned at BirthNot on fileLegal MjrXfqmwf64/21/2025 1:40 PM EDTGender IdentityNot on fileSexual OrientationNot on file Last Filed Vital Signs Vital SignReadingTime TakenCommentsBlood Axxnqavx006/8108/09/2025 3:47 PM EST Hueuk745108/09/2025 3:47 PM OQRNfakbgwpgct10.7 ??C (96.3 ??F)08/09/2025 3:47 PM ESTRespiratory Rhmf995210/09/2024 3:47 PM ESTOxygen Fhvjzrpscl88%08/09/2025 3:47 PM ESTInhaled Oxygen Concentration--Lmvqdl00.8 kg (156 lb)08/09/2025 3:47 PM EST Dnwgxr674.8 cm (5' 4.88 )08/09/2025 3:47 PM ESTBody Mass Index26.0508/09/2025 3:47 PM EST Plan of Treatment Health MaintenanceDue DateLast DoneCommentsCT Sjdsimwwwoop1956FIT-DNA (Cologuard)1956FIT1956Lipid Panel1956Medicare Annual Wellness Visit (AWV)1955 3275Syvirjyryrmoq1956MMR Vaccines (1 of 1 - Standard series)1957Hepatitis C Iaattiofq04/09/1974DTaP/Tdap/Td Vaccines (1 - Tdap) 07/08/19780733Lnolqqmnj00/09/1996Pneumococcal Vaccine (1 of 1 - PCV)2006RSV High Risk: (Elderly (60+) or Population) (1 - Risk 50-74 years 1-dose series)2006Zoster Vaccines (1 of 2)2006Bone Density Scan2021 Fuvistoimbh68Colorectal Cancer Sgqfpsweu57/30/2023Influenza Vaccine (#1)/, 07/18/2023, 06/20/2022, Additional history existsCOVID-19 Vaccine (2024- season)/, 07/28/2023, 06/26/2022, Additional history existsDiabetes Aedugabiq71/02/2025, 02/01/2025, 01/31/2025, Additional history existsTSH Level611/01/2025, 06/22/2025, 06/01/2025HIB VaccinesAged OutNo longer eligible based on patient's age to complete this topicHPV VaccinesAged OutNo longer eligible based on patient's age to complete this topicHepatitis A VaccinesAged OutNo longer eligible based on patient's age to complete this topicHepatitis B VaccinesAged OutNo longer eligible based on patient's age to complete this topicIPV Vaccines Aged OutNo longer eligible based on patient's age to complete this topic Meningococcal VaccineAged OutNo longer eligible based on patient's age to complete this topicRotavirus VaccinesAged OutNo longer eligible based on patient's age to complete this topic Medical Devices ImplantedTypeAreaManufacturerDevice IdentifierShelf Expiration DateModel / Serial / LotStent, Flexi, Pancreatic, Single Pigtail, 7fr X 7cm, W/Flange - [id number] Implanted:Qty: 1 on 01/26/2025 by [facility]: PancreasHOBBFartun [id number] / / [id number] Procedures Procedure NamePriorityDate/TimeAssociated DiagnosisCommentsECHOCARDIOGRAM 08/13/2025 COMPREHENSIVE METABOLIC SATPFTfiayte81/06/2025 6:34 AM EDT from Last 3 Months or Most Recently Relevant to Health Maintenance Results * Echocardiogram (08/13/2025) Narrative 08/13/2025 Ordered by an unspecified provider. Authorizing ProviderResult TypeResult StatusGeneric Provider ScanningCV ECHO PROCEDURESFinal Result * (ABNORMAL) Comprehensive Metabolic Panel (02/02/2025 6:34 AM EDT)Component ValueRef RangeTest MethodAnalysis TimePerformed AtPathologist SignatureGlucose 9474 - 99 mg/dL LAB CHEMISTRY METHOD 02/02/2025 8:04 AM [facility] SMVIcmdgs713615 - 145 mmol/L LAB CHEMISTRY METHOD 02/02/2025 8:04 AM [facility] LABPotassium3.73.5 - 5.3 mmol/L LAB CHEMISTRY METHOD 02/02/2025 8:04 AM [facility] MVDGmpnyfcc10798 - 107 mmol/L LAB CHEMISTRY METHOD 02/02/2025 8:[facility] ZRDXjllmurgeyy4554 - 32 mmol/L LAB CHEMISTRY METHOD 02/02/2025 8:04 AM [facility] LABAnion Yvq7873 - 20 mmol/L LAB CHEMISTRY METHOD 02/02/2025 8:04 AM [facility] LABUrea Xmsrbwij979 - 23 mg/dL LAB CHEMISTRY METHOD 02/02/2025 8:04 AM [facility] LABCreatinine1.06(H)0.50 - 1.05 mg/dL LAB CHEMISTRY METHOD 02/02/2025 8:04 AM [facility] OUVvURX31(L)>60 mL/min/1.73m*2 LAB CHEMISTRY METHOD 02/02/2025 8:04 AM [facility] LABComment: Calculations of estimated GFR are performed using the 2020 CKD-EPI Study Refit equation without therace variable for the IDMS-Traceable creatinine methods. https://jasn.asnjournals.org/content/early/ASN.0836165862 Calcium8.3(L)8.6 - 10.6 mg/dL LAB CHEMISTRY METHOD 02/02/2025 8:04 AM [facility] LABAlbumin3.1(L)3.4 - 5.0 g/dL LAB CHEMISTRY METHOD 02/02/2025 8:04 AM [facility] LABAlkaline Uqkruwjzzee7919 - 136 U/L LAB CHEMISTRY METHOD 02/02/2025 8:04 AM [facility] LABTotal Protein5.6(L)6.4 - 8.2 g/dL LAB CHEMISTRY METHOD 02/02/2025 8:04 AM [facility] UOCZOK926 - 39 U/L LAB CHEMISTRY METHOD 02/02/2025 8:04 AM [facility] LABBilirubin, Total0.70.0 - 1.2 mg/dL LAB CHEMISTRY METHOD 02/02/2025 8:04 AM [facility] DMHALK329 - 45 U/L LAB CHEMISTRY METHOD 02/02/2025 8:04 AM [facility] LABComment:Patients treated with Sulfasalazine may generate falsely decreased results for ALT.Specimen (Source)Anatomical Location / LateralityCollection Method / VolumeCollection TimeReceived TimeBloodVenous blood specimen / UnknownVenipuncture / Twtgbvw5802/02/2025 6:34 AM EDT02/02/2025 7:29 AM EDT Narrative Authorizing ProviderResult TypeResult StatusMarvin Lopez MDLAB BLOOD ORDERABLES Final ResultPerforming OrganizationAddressCity/State/ZIP CodePhone Number [facility] [address] [address] from Last 3 Months or Most Recently Relevant to Health Maintenance Insurance MemberSubscriberPlan / Payer (Effective 2021-Present)Name:SalazarKashif amandaie Relation to Subscriber:SelfName:JoseKatelyn gonzalez Payer ID:Not on file Type:Not on file Address: [address] [place] [id number] Advance Directives For more information, please contact: [phone] (Available ) * Full Code (Latest Code Status on File) Date ActivatedDate [facility]12/18/2024 10:35 PMQuestionAnswerComments Plan of Care:* Code Status Discussion Completed Decision Maker:* Patient Care Teams Team MemberRelationshipSpecialtyStart DateEnd Date Generic Provider, No Assigned Pcp, [place] [address] PCP - GeneralGeneral Practice01/25/25 Lee Ann Jimenez, RN Nurse NavigatorHematology and Fidsehvq60/6/25 [place] [address] [place] [address] Consulting PhysicianHematology and Tjjyoclz18/7/25 Aditi Kapoor LISW-S Social WorkerSocial Hlnubktr16/12/25
--- OUTSIDE RECORDS SUMMARY | 2025-09-04 15:20 | XMS_ITS | Clinical Summary ---
Author Organization [facility] Address [address] [place] [address] Care Team Providers Care De Icer Kit Assembler Name Role Phone Maxine Lake MD Unavailable [phone] Lester Rodriguez DO Primary Care Provider [phone] Allergies Active AllergyReactionsCriticalityNoted IjacSyscwcgeCkjokha40/06/2024enicillin GLow06/22/20245982TbhpbhaforwUnbbOre22/06/2024Sulfa QthhdvwolnnFdwr90/06/2024 Other Reaction(s): Palpitations Medications MedicationSigDispense QuantityRefillsLast FilledStart DateEnd DateStatus atorvastatin (Lipitor) 20 MG tablet Take 20 mg by mouth DailyActive hydroCHLOROthiazide (Microzide) 12.5 MG capsule Take 12.5 mg by mouth Daily12/24/2023ctive gabapentin (Neurontin) 100 MG capsule 100 mg = 1 cap(s), Oral, TID, # 90 cap(s), Refills(s) 0, Pharmacy: [facility]/pharmacy #[id number], 163, cm, 06/08/24 15:28:00 EDT, Height/Length Dosing, 87.9, kg, 06/08/24 15:28:00 EDT, Weight Bcsbiz6006/08/2024ctive Active Problems ProblemNoted DateDiagnosed DateAge-related nuclear cataract of both eyes 02/03/2024 Encounters DateTypeDepartmentCare PdfjDcmrouehbzi24/24/2025External Result Encounter [facility] External Department Unsolicited Linnette Garcia MD 08/13/2025External Result Encounter [facility] External Department Unsolicited Linnette Garcia MD 08/13/2025External Result Encounter [facility] External Department Unsolicited Linnette Garcia MD 08/04/2025External Result Encounter [facility] External Department Unsolicited Linnette Garcia MD 08/04/2025External Result Encounter [facility] External Department Unsolicited Linnette Garcia MD 08/04/2025External Result Encounter [facility] External Department Unsolicited Linnette Garcia MD 07/14/2025External Result Encounter [facility] External Department Unsolicited Linnette Garcia MD 07/14/2025External Result Encounter [facility] External Department Unsolicited Linnette Garcia MD 07/12/2025External Result Encounter [facility] External Department Unsolicited Linnette Garcia MD 07/12/2025External Result Encounter [facility] External Department Unsolicited Linnette Garcia MD 07/12/2025External Result Encounter [facility]S External Department Unsolicited Linnette Garcia MD 06/22/2025External Result Encounter [facility] External Department Unsolicited Linnette Garcia MD 06/22/2025External Result Encounter [facility]S External Department Unsolicited Linnette Garcia MD 06/22/2025External Result Encounter [facility]S External Department Unsolicited Linnette Garcia MD from Last 3 Months Immunizations ImmunizationAdministration DatesNext DueInfluenza, High-dose Seasonal, Quadrivalent, Preservative Free06/20/2022Influenza, Seasonal, Quadrivalent, Wzyuxsrbgr28/19/2023,07/20/2021Influenza, Ijdinnfgnft54/18/2020 Family History Medical HistoryRelationNameCommentsCataractsFatherGlaucomaFatherHyperlipidemia FatherHypertensionFatherDepressionMotherHyperlipidemiaMotherHypertensionMother Macular degenerationMotherStrokeMotherGlaucomaPaternal GrandfatherRetinal detachmentPaternal GrandfatherGlaucomaPaternal GrandmotherRelationNameStatus CommentsFatherMotherPaternal GrandfatherPaternal Grandmother Social History Tobacco UseTypesPacks/DayYears UsedDateSmoking Tobacco: NeverSmokeless Tobacco: NeverAlcohol UseStandard Drinks/WeekCommentsNot Currently1 (1 standard drink = 0.6 oz pure alcohol)CommentsNoSex and Gender InformationValueDate RecordedSex Assigned at BirthNot on fileLegal PubFwjkjm40/15/2023 7:12 PM EDT Gender IdentityNot on fileSexual OrientationNot on file Last Filed Vital Signs Vital SignReadingTime TakenCommentsBlood Lsoloizs703/8812/18/2024 10:00 AM EDT Hjaqc591412/18/2024 10:00 AM BCXJbhztiotgst73.6 ??C (97.8 ??F)12/18/2024 10:00 AM EDTRespiratory Rate--Oxygen Lknvkfcnum65%12/18/2024 10:00 AM EDTInhaled Oxygen Concentration--Cnplwb22.9 kg (196 lb)12/18/2024 10:00 AM NJZRztotk427.1 cm (5' 5 )08/19/2024 1:17 PM ESTBody Mass Index32.6208/19/2024 1:17 PM EST Plan of Treatment Health MaintenanceDue DateLast DoneCommentsCT Atkuxradojmv1955FIT-DNA 1955FIT1955FOBT1955 9598Lkwjlxgbwunen76/09/5727Quqqupkzl59/09/1996 Pneumococcal Vaccine: 65+ Years (1 of 1 - PCV)07/08/20066030Loxuvtsoewf58/30/2023 07/29/2013Colorectal Cancer Bmpeaqctj64/30/2023COVID-19 Vaccine (2024- season), 07/24/2024, 07/28/2023, Additional history exists Influenza Vaccine (#1), 07/18/2023, 06/20/2022, Additional history exists Procedures Procedure NamePriorityDate/TimeAssociated DiagnosisCommentsECG 12-LEAD08/23/2025 1:26 PM EST MR BRAIN W AND WO CONTRAST (ROUTINE)08/13/2025 4:56 PM EST TRANSTHORACIC ECHO (TTE) IPPVADDL57/14/2025 9:13 AM EST ACTH, OKYHTCVxjhjov22/05/2025 11:53 AM EST IRON AND TOTAL IRON BINDING TYFVYRIEROEW45/05/2025 11:53 AM EST SVMGBBEKZJIX59/05/2025 11:53 AM EST T4, WHZEGAIB53/05/2025 11:53 AM EST OIWMTAC8808/04/2025 11:53 AM EST CORTISOL, FKYGLPALJ60/05/2025 11:53 AM EST COMPREHENSIVE METABOLIC EKKDZVLRY92/05/2025 11:53 AM EST CBC WITH AUTO EPSUVUUWUBFSQswqtdi13/05/2025 11:53 AM EST URINALYSIS IWHOJNCwceoyo72/15/2025 10:30 AM EDT IRON AND TOTAL IRON BINDING TFMMIOBFQGOA31/15/2025 10:05 AM EDT VIT. B12/FOLATE ILJUNEGSYEQ21/15/2025 10:05 AM EDT ICKCXKYXYOTF92/15/2025 10:05 AM EDT ACTH, UYEMADSblhpyj35/13/2025 8:37 AM EDT T4, XGMZEYXO98/13/2025 8:37 AM EDT CORTISOL, LXKLCRYHB38/13/2025 8:37 AM EDT COMPREHENSIVE METABOLIC WAKWSATSH81/13/2025 8:37 AM EDT CBC WITH AUTO XWVLEVIOGOMYIZTS32/13/2025 8:37 AM EDT ACTH, DAKCYPPzempwg55/23/2025 7:06 AM EDT T4, GNDOTHAQ20/23/2025 7:06 AM EDT GPJXMMG4406/22/2025 7:06 AM EDT CORTISOL, KZCAKFFQW49/23/2025 7:06 AM EDT COMPREHENSIVE METABOLIC FJAELHGUJ86/23/2025 7:06 AM EDT CBC WITH AUTO BOLLLBYOWNLNGAJG39/23/2025 7:06 AM EDT from Last 3 Months Results * ECG 12 lead (08/23/2025 1:26 PM EST)Specimen (Source)Anatomical Location / LateralityCollection Method / VolumeCollection TimeReceived Time08/23/2025 1:26 PM EST [facility] - 08/23/2025 6:27 PM EST [facility] ?[facility] [place] ?[address] ? [place] [address] ? Electrocardiograph Report ? Signed ? Patient: Katelyn Cunningham ?MR#: [id number] ?? [id number] ? : 1955 ?Acct:[id number] ? Age/Sex: 70 / F ?ADM Date: 08/23/25 ? Loc: XT ?Room: ?Type: REG RCR ?? Attending Dr: Linnette Garcia MD ? Ordering Provider: Linnette Garcia MD ?? Date of Service: 08/23/25 ?? ECG/ECG 12 lead ECG: Z51.11 - Encounter for antineoplastic chemotherapy ? Copies to: ? Test Reason : ?? Blood Pressure : ?? */* ?? mmHG ?? Vent. Rate : ??92 BPM ? Atrial Rate : ??92 BPM ? P-R Int : 138 ms ?QRS Dur : ??78 ms ?QT Int : 340 ms ? P-R-T Axes : ??30 ?? 3 ??33 degrees ?QTcB Int : 420 ms ? Sinus rhythm with marked sinus arrhythmia ?? Otherwise normal ECG ?? No previous ECGs available ?? Confirmed by Nile Ordonez ([id number]) on 08/23/2025 6:27:17 PM ? Referred By: Marvin Lopez ? Electronically Signed By: Nile Ordonez ? Transcribed By: ? MUS ? Signed By ? Nile Ordonez MD ?08/23/25 1827 Procedure Note Nile Ordonez MD - 08/23/2025 [facility] [place] [address] Electrocardiograph Report Signed Patient: Katelyn Cunningham KMR#: [id number] : 6Acct:[id number] Age/Sex: 70 / FADM Date: 08/23/25 Loc: XT Room:Type: [facility] Attending Dr: Linnette Garcia MD Ordering Provider: Linnette Garcia MD Date of Service: 08/23/25 ECG/ECG 12 lead ECG: Z51.11 - Encounter for antineoplastic chemotherapy Copies to: Test Reason : Blood Pressure : */* mmHG Vent. Rate : 92 BPM Atrial Rate : 92 BPM P-R Int : 138 ms QRS Dur : 78 ms QT Int : 340 ms P-R-T Axes : 30 3 33 degrees QTcB Int : 420 ms Sinus rhythm with marked sinus arrhythmia Otherwise normal ECG No previous ECGs available Confirmed by Nile Ordonez ([id number]) on 08/23/2025 6:27:17 PM Referred By: Marvin Lopez Electronically Signed By: Zev Transcribed By: MUS Signed By Nile Ordonez MD 08/23/25 1737 Authorizing ProviderResult TypeResult StatusLinnette Garcia MDECJuan ORDERABLESFinal ResultPerforming OrganizationAddressCity/State/ZIP CodePhone Number [address] [place] [address], * MR brain w and wo contrast routine (08/13/2025 4:56 PM EST)Anatomical Region LateralityModalityBrainMagnetic ResonanceSpecimen (Source)Anatomical Location / LateralityCollection Method / VolumeCollection TimeReceived Time08/13/2025 4:56 PM EST Impressions 08/13/2025 5:03 PM EST IMPRESSION: NEGATIVE METASTATIC DISEASE. ??STABLE CHRONIC MICROVASCULAR CHANGES. ?? NO ACUTE INTRACRANIAL PROCESS BY MRI. ? Impression dictated by: Chet Caro M.D. ??08/13/2025 5:01 PM ? Dictation Location: RADIO-PC-29 ? Transcribed By: ? PWS ?08/13/25 1701 ? Dictated By: ?Chet Caro MD ?08/13/25 1656 ? Signed By: <Electronically signed by Chet Caro MD in OV> ? 08/13/25 1701 Narrative 08/13/2025 5:03 PM EST [facility] ?[facility] [place] ?[address] ? [place] [address] ? MRI Report ? Signed ? Patient: Christopher,Katelyn K ?MR#: [id number] ?? [id number] ? : 1955 ?Acct:[id number] ? Age/Sex: 70 / F ?ADM Date: 08/13/25 ? Loc: XT ?Room: ?Type: REG RCR ?? Attending Dr: Linnette Garcia MD ?? Copies to: Linnette Garcia MD ? Ordering Provider: Linnette Garcia MD ?? Date of Service: 08/13/25 ?? MR/MR head/brain wo/w con: progression of disease ? MRI BRAIN WITHOUT AND WITH INTRAVENOUS CONTRAST ? CLINICAL DATA: ??History renal cancer ? COMPARISON: ??MRI brain outside facility 12/19/2024 ? No restricted diffusion. ??Stable central involutional changes and mild periventricular, subcortical T2 prolongation suggestive chronic microvascular disease. ??No abnormal GRE signal. ??Intracranial arterial vascular flow voids are preserved. ??Following contrast administration, no abnormal postcontrast enhancement is identified. ? MR/MR head/brain wo/w con ?? Procedure Note Radiology, Radiologist, - 08/13/2025 [facility] [place] [address] MRI Report Signed Patient: Katelyn Cunningham KMR#: [id number] : 6Acct:[id number] Age/Sex: 70 / FADM Date: 08/13/25 Loc: XT Room:Type: REG RCR Attending Dr: Linnette Garcia MD Copies to: Linnette Garcia MD Ordering Provider: Linnette Garcia MD Date of Service: 08/13/25 MR/MR head/brain wo/w con: progression ofdisease MRI BRAIN WITHOUT AND WITH INTRAVENOUS CONTRAST CLINICAL DATA: History renal cancer COMPARISON: MRI brain outside facility 12/19/2024 No restricted diffusion. Stable central involutional changes and mild periventricular, subcortical T2 prolongation suggestive chronic microvascular disease. No abnormal GREsignal. Intracranial arterial vascular flow voids are preserved. Following contrastadministration, no abnormal postcontrast enhancement is identified. MR/MR head/brain wo/w con IMPRESSION: IMPRESSION: NEGATIVE METASTATIC DISEASE. STABLE CHRONIC MICROVASCULAR CHANGES. NO ACUTE INTRACRANIAL PROCESS BY MRI. Impression dictated by: Chet Caro M.D. 08/13/2025 5:01 PM Dictation Location: [place] [address] Transcribed By: [facility] 08/13/25 1701 Dictated By: Chet Caro MD 08/13/25 1656 Signed By: <Electronically signed by Chet Caro MD in OV> 08/13/25 1701 Authorizing ProviderResult TypeResult StatusLinnette Garcia MDIMG MRI PROCEDURES Final Result * Transthoracic echo (TTE) complete (08/13/2025 9:13 AM EST)Anatomical Region LateralityModalityHeartUltrasoundSpecimen (Source)Anatomical Location / LateralityCollection Method / VolumeCollection TimeReceived Time08/13/2025 9:13 AM EST Narrative 08/13/2025 6:26 PM EST [facility] ?[facility] [place] ?[address] ? [place] [address] ? Echocardiogram ? Signed ? Patient: Octavio,Katelyn K ?MR#: [id number] ?? [id number] ? : 1955 ?Acct:[id number] ? Age/Sex: 70 / F ?ADM Date: 11/14/25 ? Loc: XT ?Room: ?Type: REG RCR ?? Attending Dr: Linnette Garcia MD ? Ordering Provider: Linnette Garcia MD ?? Date of Service: 08/13/25 ?? ECH/ECH echo transthoracic: Z51.12 - Encounter for antineoplastic immunotherapy ? Copies to: Linnette Garcia MD ?? Sarah Syed MD, [facility] ? Weight: 158 lb ? Performed By: Shari Srivastava, ?? RCS ?? BSA: 1.8 m2 ?BP: 108/60 mmHg ?? HR: 72 ?? Reason For Study: Z51.12 - Encounter for antineoplastic immunotherapy ?? History: HTN ? Interpretation Summary ?? Mild concentric left ventricular hypertrophy. ?? Ejection Fraction = 65-70%. ?? A variety of Doppler measurements indicate impaired left ventricular ?? relaxation, which is associated with grade I/IV or mild diastolic dysfunction. ?? There is trace tricuspid regurgitation. ?? The right ventricular systolic pressure is 42 mmHg. ?? Right ventricular systolic pressure is consistent with mild pulmonary ?? hypertension. ?? GLS -22.6% normal ?? There is no prior echocardiogram noted for this patient. ? Procedure/Quality: ?? A two-dimensional transthoracic echocardiogram with color ?? flow and Doppler was performed. The study was technically good in quality. ?? There is no prior echocardiogram noted for this patient. ?? Left Ventricle: ?? Mild concentric left ventricular hypertrophy. Left ?? ventricular systolic function is normal. Ejection Fraction = 65-70%. GLS - ?? 22.6% normal. A variety of Doppler measurements indicate impaired left ?? ventricular relaxation, which is associated with grade I/IV or mild diastolic ?? dysfunction. ?? Left Atrium: ?? The left atrium appears normal in size. The atrial septum ?? appears normal. ?? Right Atrium: ?? The right atrium appears normal in size. ?? Right Ventricle: ?? The right ventricular size, thickness and function are ?? normal. ?? Aortic Valve: ?? The aortic valve is normal in structure and function. ?? Mitral Valve: ?? The mitral valve is mildly sclerotic. There is trace mitral ?? regurgitation. ?? Tricuspid Valve: ?? The tricuspid valve is normal. There is trace tricuspid ?? regurgitation. The right ventricular systolic pressure is 42 mmHg. Right ?? ventricular systolic pressure is consistent with mild pulmonary hypertension. ?? Pulmonic Valve: ?? The pulmonic valve is not well seen, but is grossly normal. ?? Arteries: ?? The aortic root is normal size. ?? Pericardium/Pleura: ?? No pericardial effusion seen. There is no pleural ?? effusion. ?? IVC/Hepatic Veins: ?? The IVC is normal in size with an inspiratory collapse of ?? greater then 50%, suggesting normal right atrial pressure. ?? Miscellaneous: ?? No thrombus, vegetation or mass is seen. ?? Measurements with Normals ?? IVSd: 1.2 cm ?(0.7-1.1 cm)LVIDd: 4.1 cm ? (3.7-5.4 cm) ?? LVPWd: 1.2 cm ? (0.7-1.1 cm)LVIDs: 2.3 cm ? (2.3-3.6 cm) ?? LA dimension: 3.2 cm ??(2.3-4.0 cm)Ao root diam: 3.1 cm(2.0-3.6 cm) ?? asc Aorta Diam: 3.4 cm(2.1-3.4cm) ? Doppler with Normals ?? RVSP(TR): 42.3 mmHg ?(18-35mmHg) ?? LV V1 max: 148.2 cm/sec ??(0.7-1.7m/s)MV E max lui: 81.0 cm/sec(0.8-1.3m/s) ?? MV A max lui: 90.4 cm/sec(0.0-0.0m/s) ?? MV E/A: 0.90 (<1.5) ?? MMode/2D Measurements ?? Calculations ?? RVDd: 3.4 cm ? FS: 44.4 % ? Ao root area: ? LVOT diam: 2.0 cm ?? TAPSE: 2.0 cm ?EDV(Teich): ?7.7 cm2 ? LVOT area: 3.1 cm2 ?? RV S Lui: ?73.7 ml ?? 23.3 cm/sec ?ESV(Teich): ? 17.6 ml ? EF(Teich): 76.1 % ? __ ? LVLd ap4: 7.0 cm ?? SV(MOD-sp4): ? LAV(MOD-sp4): ? LA A2 area: 16.4 cm2 ?? EDV(MOD-sp4): ?48.9 ml ?42.3 ml ?? 68.6 ml ? LAV(MOD-sp2): ? LA A4 area: 17.0 cm2 ?? LVLs ap4: 5.6 cm ?40.8 ml ? LA length (vol): ?? ESV(MOD-sp4): ? 5.4 cm ?? 19.6 ml ? LA vol: 44.0 ml ?? EF(MOD-sp4): 71.4 % ? LA vol index: ?24.3 ml/m2 ? Doppler Measurements ?? Calculations ?? MV dec time: ? MV V2 max: ?E/E' lat: 5.9 ?MV P1/2t max lui: ?? 0.24 sec ? 140.4 cm/sec ?E/E' med: 7.2 ?95.4 cm/sec ? MV max PG: ? MV P1/2t: 73.7 msec ? 52.0 mmHg ? MV V2 mean: ?MVA(P1/2t): 3.0 cm2 ? 68.1 cm/sec ?MV dec slope: ? MV mean PG: ?379.0 cm/sec2 ? 2.3 mmHg ? MV V2 VTI: 40.0 cm ? MVA(VTI): 2.3 cm2 ? __ ?? Ao V2 max: ? LV V1 max PG: ? MR max lui: ?TV max P.0 mmHg ?? 238.9 cm/sec ? 8.8 mmHg ?358.5 cm/sec ?? Ao max PG: ? LV V1 mean PG: ?MR max PG: ?? 22.8 mmHg ?4.2 mmHg ?52.2 mmHg ?? Ao mean PG: ?LV V1 mean: ?? 10.3 mmHg ?93.9 cm/sec ?? Ao V2 mean: ?LV V1 VTI: 29.8 cm ?? 148.2 cm/sec ?? Ao V2 VTI: 45.0 cm ? JA(I,D): 2.0 cm2 ?? JA(V,D): 1.9 cm2 ? __ ?? TR max lui: ?? 305.3 cm/sec ?? TR max PG: ?? 37.3 mmHg ?? RAP systole: ?? 5.0 mmHg ? Measurements from QLAB ?CI (HM): ?ED Mass (HM): ? LAEF (HM): 62.0 % ?? BSA (HM): 1.8 m2 ?141.0 grams ?3.3 l/min/m2 ? __ ? ANASTASIYA (HM): ?LAVmax (HM): ?LAVmin (HM): 26.0 mlPat Height (HM): ?? 38.0 ml/m2 ?69.0 ml ? 168.0 cm ? __ ? Pat Weight (HM): ?? 71.7 kg ? QLAB Heart Model ?? EDV (HM)_phl: 128.0 ml ?EF (HM)_phl: 63.0 % ??ED Current (HM)_phl: 60.0 % ?? ESV (HM)_phl: 48.0 ml ? HR (HM)_phl: 74.0 BPMES Current (HM)_phl: 30.0 % ?? LV Length ED (HM)_phl: 77.0 mmSV (HM)_phl: 80.0 ml ED Default (HM)_phl: 60.0 % ?? LV Length ES (HM)_phl: 60.0 mm ? ES Default (HM)_phl: 30.0 % ? Transcribed By: ?SCV ?? Performed At: ?08/13/25 0913 ?? Signed By: ?[facility]ed MD, [facility] ?08/13/251824 Procedure Note Sarah Syed MD - 08/13/2025 [facility] [place] [address] [place] [address] Echocardiogram Signed Patient: Katelyn Cunningham KMR#: [id number] : 1955cct:[id number] Age/Sex: 70 / FADM Date: 08/13/25 Loc: Room:Type: [facility] Attending Dr: Linnette Garcia MD Ordering Provider: Linnette Garcia MD Date of Service: 08/13/25 ECH/ECH echo transthoracic: Z51.12 - Encounterfor antineoplastic immunotherapy Copies to: MD Sarah Kaufman MD, [facility] Weight: 158 lb Performed By: SUNNY Ramey BSA: 1.8 m2 BP: 108/60 mmHg HR: 72 Reason For Study: Z51.12 - Encounter for antineoplastic immunotherapy History: HTN Interpretation Summary Mild concentric left ventricular hypertrophy. Ejection Fraction = 65-70%. A variety of Doppler measurements indicate impaired left ventricular relaxation, which is associated with grade I/IV or mild diastolicdysfunction. There is trace tricuspid regurgitation. The right ventricular systolic pressure is 42 mmHg. Right ventricular systolic pressure is consistent with mild pulmonary hypertension. GLS -22.6% normal There is no prior echocardiogram noted for this patient. Procedure/Quality: A two-dimensional transthoracic echocardiogram withcolor flow and Doppler was performed. The study was technically good in quality. There is no prior echocardiogram noted for this patient. Left Ventricle: Mild concentric left ventricular hypertrophy. Left ventricular systolic function is normal. Ejection Fraction = 65-70%. GLS - 22.6% normal. A variety of Doppler measurements indicate impaired left ventricular relaxation, which is associated with grade I/IV or milddiastolic dysfunction. Left Atrium: The left atrium appears normal in size. The atrial septum appears normal. Right Atrium: The right atrium appears normal in size. Right Ventricle: The right ventricular size, thickness and function are normal. Aortic Valve: The aortic valve is normal in structure and function. Mitral Valve: The mitral valve is mildly sclerotic. There is tracemitral regurgitation. Tricuspid Valve: The tricuspid valve is normal. There is trace tricuspid regurgitation. The right ventricular systolic pressure is 42 mmHg. Right ventricular systolic pressure is consistent with mild pulmonaryhypertension. Pulmonic Valve: The pulmonic valve is not well seen, but is grosslynormal. Arteries: The aortic root is normal size. Pericardium/Pleura: No pericardial effusion seen. There is no pleural effusion. IVC/Hepatic Veins: The IVC is normal in size with an inspiratorycollapse of greater then 50%, suggesting normal right atrial pressure. Miscellaneous: No thrombus, vegetation or mass is seen. Measurements with Normals IVSd: 1.2 cm (0.7-1.1 cm)LVIDd: 4.1 cm (3.7-5.4 cm) LVPWd: 1.2 cm (0.7-1.1 cm)LVIDs: 2.3 cm (2.3-3.6 cm) LA dimension: 3.2 cm (2.3-4.0 cm)Ao root diam: 3.1 cm(2.0-3.6 cm) asc Aorta Diam: 3.4 cm(2.1-3.4cm) Doppler with Normals RVSP(TR): 42.3 mmHg (18-35mmHg) LV V1 max: 148.2 cm/sec (0.7-1.7m/s)MV E max lui: 81.0 cm/sec(0.8-1.3m/s) MV A max lui: 90.4 cm/sec(0.0-0.0m/s) MV E/A: 0.90 (<1.5) MMode/2D Measurements Calculations RVDd: 3.4 cm FS: 44.4 % Ao root area: LVOT diam: 2.0 cm TAPSE: 2.0 cm EDV(Teich): 7.7 cm2 LVOT area: 3.1 cm2 RV S Lui: 73.7 ml 23.3 cm/sec ESV(Teich): 17.6 ml EF(Teich): 76.1 % __ LVLd ap4: 7.0 cm SV(MOD-sp4): LAV(MOD-sp4): LA A2 area: 16.4cm2 EDV(MOD-sp4): 48.9 ml 42.3 ml 68.6 ml LAV(MOD-sp2): LA A4 area: 17.0cm2 LVLs ap4: 5.6 cm 40.8 ml LA length (vol): ESV(MOD-sp4): 5.4 cm 19.6 ml LA vol: 44.0 ml EF(MOD-sp4): 71.4 % LA vol index: 24.3 ml/m2 Doppler Measurements Calculations MV dec time: MV V2 max: E/E' lat: 5.9 MV P1/2t max lui: 0.24 sec 140.4 cm/sec E/E' med: 7.2 95.4 cm/sec MV max PG: MV P1/2t: 73.7msec 52.0 mmHg MV V2 mean: MVA(P1/2t): 3.0cm2 68.1 cm/sec MV dec slope: MV mean P.0 cm/sec2 2.3 mmHg MV V2 VTI: 40.0 cm MVA(VTI): 2.3 cm2 __ Ao V2 max: LV V1 max PG: MR max lui: TV max P.0mmHg 238.9 cm/sec 8.8 mmHg 358.5 cm/sec Ao max PG: LV V1 mean PG: MR max P.8 mmHg 4.2 mmHg 52.2 mmHg Ao mean PG: LV V1 mean: 10.3 mmHg 93.9 cm/sec Ao V2 mean: LV V1 VTI: 29.8 cm 148.2 cm/sec Ao V2 VTI: 45.0 cm JA(I,D): 2.0 cm2 JA(V,D): 1.9 cm2 __ TR max lui: 305.3 cm/sec TR max P.3 mmHg RAP systole: 5.0 mmHg Measurements from QLAB CI (HM): ED Mass (HM): LAEF (HM): 62.0% BSA (HM): 1.8 m2 141.0 grams 3.3 l/min/m2 __ ANASTASIYA (HM): LAVmax (HM): LAVmin (HM): 26.0 mlPat Height (HM): 38.0 ml/m2 69.0 ml 168.0 cm __ Pat Weight (): 71.7 kg QLAB Heart Model EDV ()_phl: 128.0 ml EF ()_phl: 63.0 % ED Current ()_phl:60.0 % ESV ()_phl: 48.0 ml HR (HM)_phl: 74.0 BPMES Current ()_phl:30.0 % LV Length ED (HM)_phl: 77.0 mmSV ()_phl: 80.0 ml ED Default ()_phl:60.0 % LV Length ES ()_phl: 60.0 mm ES Default ()_phl:30.0 % Transcribed By: SCV Performed At: 08/13/25 0924 Signed By: Sarah Syed MD, FACC 08/13/25 3134 Authorizing ProviderResult TypeResult StatusLinnette Garcia [facility] [place] PROCEDURES Final Result * (ABNORMAL) CBC auto differential (08/04/2025 11:53 AM EST) Only the most recent of3 resultswithin the time period is included. ComponentValueRef RangeTest MethodAnalysis TimePerformed AtPathologist Signature WBC8.93.8 - 11.6 [CFU]/mL08/04/2025 12:08 PM [facility] UNCORRECTED WHITE BLOOD COUNT8.93.8 - 11.6 10*3/uL08/04/2025 12:08 PM [facility] CtrRBC3.713.60 - 5.00 10*6/uL08/04/2025 12:08 PM [facility] CtrHEMOGLOBIN9.0(L)11.8 - 15.4 g/dL08/04/2025 12:08 PM [facility] SlwKKIIJXANBT04.0(L)34.0 - 46.4 %08/04/2025 12:08 PM [facility] WscFZD56.5(L)80 - 100 fL08/04/2025 12:08 PM [facility] GcsHYG11.3(L)24.7 - 34.3 pg08/04/2025 12:08 PM [facility] NpqFYPO18.232.0 - 35.0 g/dL08/04/2025 12:08 PM [facility] CtrRED CELL DISTRIBUTION WIDTH, RDW17.7(H)11.9 - 15.3 %08/04/2025 12:08 PM [facility] CtrPLATELET PIJEH423713 - 450 10*3/uL08/04/2025 12:08 PM [facility] CtrMEAN PLATELET VOLUME, MPV7.96.3 - 10.7 fL08/04/2025 12:08 PM [facility] NEUTROPHILS, %90.3. %08/04/2025 12:08 PM [facility] LYMPHOCYTES, %6.1. %08/04/2025 12:08 PM [facility] MONOCYTE/MACROPHAGE, %3.3. %08/04/2025 12:08 PM [facility] CtrEOSINOPHILS, %0.1. %08/04/2025 12:08 PM [facility] BASOPHILS, %0.2. %08/04/2025 12:08 PM [facility] CtrNRBC0.00 - 0.5 /100{WBC}08/04/2025 12:08 PM [facility] CtrNEUTROPHILS 8.0(H)1.8 - 7.7 10*3/uL08/04/2025 12:08 PM [facility] LYMPHOCYTES0.5(L)1.00 - 4.8 10*3/uL08/04/2025 12:08 PM [facility] CtrMONOCYTES0.30.0 - 0.8 10*3/uL08/04/2025 12:08 PM [facility] CtrEOSINOPHILS0.00.0 - 0.45 10*3/uL08/04/2025 12:08 PM [facility] CtrBASOPHILS0.00.0 - 0.2 10*3/uL08/04/2025 12:08 PM [facility] CtrSpecimen (Source)Anatomical Location / LateralityCollection Method / VolumeCollection TimeReceived TimeBlood (Blood) 08/04/2025 11:53 AM EST08/04/2025 11:59 AM EST Narrative Authorizing ProviderResult TypeResult StatusLinnette Garcia MDLAB BLOOD ORDERABLES Final ResultPerforming OrganizationAddressCity/State/ZIP CodePhone Number [facility] [address] [place] [address], [facility] [address] [place] [address] * (ABNORMAL) Iron and TIBC (08/04/2025 11:53 AM EST) Only the most recent of2 resultswithin the time period is included. ComponentValueRef RangeTest MethodAnalysis TimePerformed AtPathologist Signature IRON<10(L)50 - 212 ug/dL08/04/2025 12:53 PM [facility] TOTAL IRON BINDING DAHPTRKT832(L)255 - 450 ug/dL08/04/2025 12:46 PM [facility]% IRON SATURATIONTest not idcuhmsle74 - 50 %08/04/2025 12:53 PM [facility] IoeQJZFQBLOXCR449(L)203 - 362 mg/dL 08/04/2025 12:46 PM [facility] CtrSpecimen (Source)Anatomical Location / LateralityCollection Method / VolumeCollection TimeReceived Time OtherTopography unknown / Lsisvnn5808/04/2025 11:53 AM EST08/04/2025 11:59 AM EST Narrative [facility] - 08/04/2025 12:53 PM EST STAT FOR CT Authorizing ProviderResult TypeResult StatusLinnette Loli Jose MADERALAB BLOOD ORDERABLES Final ResultPerforming OrganizationAddressty/[facility] CodePhone Number [facility] [address] [place] [address], [facility] [address] [place] [address] * ACTH (08/04/2025 11:53 AM EST) Only the most recent of3 resultswithin the time period is included. ComponentValueRef RangeTest MethodAnalysis TimePerformed AtPathologist Signature ADRENOCORTICOTROPIC HORMONE PL2.67.2 - 63.3 pg/mL08/05/2025 3:08 PM ESTFIRELANDS Comment: ACTH reference interval for samples collected between 7 and 10 AM. Performed at: ?? - [facility] ??[id number] Binding Printer: Carlos Manuel Arnold PhD, Phone: ??[phone] Specimen (Source)Anatomical Location / LateralityCollection Method / Volume Collection TimeReceived FwhcEyknf02/05/2025 11:53 AM EST08/04/2025 11:59 AM EST Narrative Authorizing ProviderResult TypeResult StatusLinnette Garcia MDLAB BLOOD ORDERABLES Final ResultPerforming OrganizationAddressty/State/[facility] CodePhone Number [facility] [address] [place] [address], * TSH (08/04/2025 11:53 AM EST) Only the most recent of2 resultswithin the time period is included. ComponentValueRef RangeTest MethodAnalysis TimePerformed AtPathologist Signature THYROID STIMULATING HORMONE2.780.45 - 5.33 u[iU]/mL08/04/2025 12:39 PM EST [facility] CtrSpecimen (Source)Anatomical Location / Laterality Collection Method / VolumeCollection TimeReceived TimeOtherTopography unknown / Uvimske5608/04/2025 11:53 AM EST08/04/2025 11:59 AM EST Narrative [facility] - 08/04/2025 12:53 PM EST STAT FOR CT Authorizing ProviderResult TypeResult StatusLinnette Garcia MDLAB BLOOD ORDERABLES Final ResultPerforming OrganizationAddressCity/State/ZIP CodePhone Number [facility] [address] [place] [address], [facility] [address] [place] [address] * T4, free (08/04/2025 11:53 AM EST) Only the most recent of3 resultswithin the time period is included. ComponentValueRef RangeTest MethodAnalysis TimePerformed AtPathologist Signature FREE T4 (FREE THYROXINE)0.830.61 - 1.12 ng/dL08/04/2025 12:41 PM [facility] CtrSpecimen (Source)Anatomical Location / LateralityCollection Method / VolumeCollection TimeReceived TimeOtherTopography unknown / Unknown 08/04/2025 11:53 AM EST08/04/2025 11:59 AM EST Narrative [facility] - 08/04/2025 12:53 PM EST STAT FOR CT Authorizing ProviderResult TypeResult StatusLinnette Garcia MDLAB BLOOD ORDERABLES Final ResultPerforming OrganizationAddressCity/State/ZIP CodePhone Number [address] [address], [facility] [address] [place] [address] * (ABNORMAL) Ferritin (08/04/2025 11:53 AM EST) Only the most recent of2 resultswithin the time period is included. ComponentValueRef RangeTest MethodAnalysis TimePerformed AtPathologist Signature MZAWXJXB539.9(H)11.0 - 306.8 ng/mL08/04/2025 12:45 PM [facility] CtrSpecimen (Source)Anatomical Location / LateralityCollection Method / VolumeCollection TimeReceived TimeOtherTopography unknown / Pdmhkck0208/04/2025 11:53 AM EST08/04/2025 11:59 AM EST Narrative [facility] - 08/04/2025 12:53 PM EST STAT FOR CT Authorizing ProviderResult TypeResult StatusLinnette Garcia MDLAB BLOOD ORDERABLES Final ResultPerforming OrganizationAddressCity/State/ZIP CodePhone Number [address] [place] [place] [address], [facility] [address] [place] [address] * Cortisol (08/04/2025 11:53 AM EST) Only the most recent of3 resultswithin the time period is included. ComponentValueRef RangeTest MethodAnalysis TimePerformed AtPathologist Signature DIGBLJXG72.7ug/dL08/04/2025 12:36 PM [facility] CtrComment: Reference range: ?AM 6 - 24 ug/dl PM <10 ug/dl [facility] linoleum printer and method: STEWART UNICEL DXI, POLYCLONAL ANTIBODY CORTISOL ASSAY. Specimen (Source)Anatomical Location / LateralityCollection Method / Volume Collection TimeReceived TimeOtherTopography unknown / Jyhqgka8008/04/2025 11:53 AM EST08/04/2025 11:59 AM EST Narrative [facility] - 08/04/2025 12:53 PM EST STAT FOR CT Authorizing ProviderResult TypeResult StatusLinnette Garcia MDLAB BLOOD ORDERABLES Final ResultPerforming OrganizationAddressCity/State/ZIP CodePhone Number [facility] [address] [place] [address], [facility] [address] [place] [address] * (ABNORMAL) Comprehensive metabolic panel (08/04/2025 11:53 AM EST) Only the most recent of3 resultswithin the time period is included. ComponentValueRef RangeTest MethodAnalysis TimePerformed AtPathologist Signature Hfxiphm070(H)70 - 100 mg/dL08/04/2025 12:24 PM [facility] Comment: Random Glucose Reference Range is dependent on time and content of last meal. Glucose of more than 200 mg/dL in a nonstressed, ambulatory subject supports the diagnosis of Diabetes Mellitus. ADA recommended reference range BUN28(H)7 - 25 mg/dL08/04/2025 12:24 PM [facility] CREATININE1.160.60 - 1.20 mg/dL08/04/2025 12:24 PM [facility] CtrESTIMATED GFR51.3927808/04/2025 12:24 PM [facility] Lzgzxl609825 - 145 mmol/L110/04/2024 12:24 PM [facility] Potassium, Bld4.83.5 - 5.1 mmol/L110/04/2024 12:24 PM [facility] NxrGwzngnhd88262 - 107 mmol/L110/04/2024 12:24 PM [facility] CtrCarbon Psxmlmh59.321.0 - 31.0 mmol/L110/04/2024 12:24 PM [facility] CtrAnion Gap12.56.0 - 15.011 12:24 PM [facility] CtrCalcium9.08.6 - 10.3 mg/dL08/04/2025 12:24 PM [facility] CtrTOTAL PROTEIN7.16.4 - 8.9 g/dL08/04/2025 12:46 PM [facility] CtrALBUMIN LEVEL3.4(L)3.5 - 5.7 g/dL08/04/2025 12:46 PM [facility] CtrGLOBULIN3.7g/dL08/04/2025 12:46 PM [facility] CtrALBUMIN/GLOBULIN RATIO0.9110/04/2024 12:46 PM [facility] CtrBILIRUBIN,TOTAL0.30.3 - 1.0 mg/dL08/04/2025 12:46 PM [facility] CtrASPARTATE AMINO RXGFYXDUVSU9979 - 39 U/L 08/04/2025 12:46 PM [facility] CtrALANINE NYAGLZQZRBJYPHMU509 - 52 U/L110/04/2024 12:46 PM [facility] CtrALKALINE BIVSQIBTSRX0454 - 104 U/L110/04/2024 12:46 PM [facility] CREATININE CLR CALC WRJZNAOQ76.5508/04/2025 12:24 PM [facility] CtrSpecimen (Source)Anatomical Location / LateralityCollection Method / VolumeCollection TimeReceived TimeOtherTopography unknown / Uchzxak3708/04/2025 11:53 AM [facility]08/04/2025 11:59 AM EST [facility] - 08/04/2025 12:53 PM EST STAT FOR CT Authorizing ProviderResult TypeResult StatusLinnette Garcia MDLAB BLOOD ORDERABLES Final ResultPerforming OrganizationAddressCity/State/ZIP CodePhone Number [address] [place] [address], [facility] [address] [place] [address] * (ABNORMAL) Urinalysis with reflex microscopic (07/14/2025 10:30 AM EDT) ComponentValueRef RangeTest MethodAnalysis TimePerformed AtPathologist SignatureCOLOR,TJAMKDcxyneCdqpin43/15/2025 10:54 AM [facility] CtrAPPEARANCE,UDXNIEseydUoyat33/15/2025 10:54 AM [facility] CtrSPECIFICY GRAVITY,URINE1.0251.001 - 1.7842707/14/2025 10:[address] [facility] CtrPH,URINE6.05.0 - 9.010 10:[address] [facility] CtrLEUKOCYTE ESTERASE,URINE2+Uelzkcni41/15/2025 10:54 AM [facility] CtrNITRITE,URINENegativeNegative 07/14/2025 10:54 AM [facility] CtrPROTEIN,QTLKB73Xhnkjiyi mg/dL07/14/2025 10:54 AM [facility] CtrGLUCOSE,URINE (UA) NormalNormal mg/dL07/14/2025 10:54 AM [facility]tr KETONES,UIEGTKhwrpqgtGnfpmbov17/15/2025 10:54 AM [facility] CtrUROBILINOGEN,PEPYO5Nygnpp mg/dL07/14/2025 10:54 AM [facility] CtrBILIRUBIN,RRBIOMtcgzkdeUgzfzmdq10/15/2025 10:54 AM [facility] CtrOCCULT BLOOD,QYGZNYslfgmdvCfgnpwyg31/15/2025 10:[address] [facility] CtrRBC,URINE3-40 - 4 [HPF]07/14/2025 10:[address] [facility] CtrWBC,URINE1-20 - 4 [HPF]07/14/2025 10:[address] [facility] CtrSQUAMOUS EPITHELIAL CELL,URINE1-20 - 2 [HPF] 07/14/2025 10:55 AM [facility] CtrBACTERIA,URINENone Seen None Seen [HPF]07/14/2025 10:55 AM [facility] CtrHYALINE CASTS,URINENone0 - 8 [LPF]07/14/2025 10:55 AM [facility] CtrMUCUS,URINE1+(AA)[LPF]07/14/2025 10:55 AM [facility] Specimen (Source)Anatomical Location / LateralityCollection Method / Volume Collection TimeReceived TfawDcxnz03/15/2025 10:30 AM EDT1 10:43 AM EDT Narrative [facility] - 07/14/2025 10:55 AM EDT Name Collection Type:: Clean-Voided Midstream Authorizing ProviderResult TypeResult StatusLinnette Garcia MDLAB URINE ORDERABLES Final ResultPerforming OrganizationAddressCity/State/ZIP CodePhone Number [facility] [address] [place] [address], [facility] [address] [place] [address] * VIT. B12/FOLATE PROFILE (07/14/2025 10:05 AM EDT)ComponentValueRef RangeTest MethodAnalysis TimePerformed AtPathologist SignatureVITAMIN [id number] - 914 pg/mL07/14/2025 11:11 AM [facility] CzhKTXQON60.0>5.9 ng/mL 07/14/2025 11:55 AM [facility] CtrComment: Folate reference range: >5.9 ng/ml The WHO technical consultation on folate and vitamin b12 deficiencies has determined that folate concentrations less than 4 ng/ml are considered deficient. Specimen (Source)Anatomical Location / LateralityCollection Method / Volume Collection TimeReceived TimeOtherTopography unknown / Irqsyel7607/14/2025 10:05 AM EDT1 10:13 AM EDT Narrative Authorizing ProviderResult TypeResult StatusLinnette SHELTON BLOOD ORDERABLES Final ResultPerforming OrganizationAddressty/State/ZIP CodePhone Number [facility] [address] [place] [address], [facility] [address] [place] [address] from Last 3 Months Insurance Care Teams Team MemberRelationshipSpecialtyStart DateEnd Lester Rodriguez DO [address] [facility] [address] [place] [address] PCP - GeneralFamily Mudeypzz30/17/24 Maxine Lake MD [address] [place] [address] Referring PhysicianFamily Medicine06/25/24
--- OUTSIDE RECORDS SUMMARY | 2025-09-04 15:20 | XMS_ITS ---
Author Organization [facility] Address [address] [place] [address] Phone Care Team Providers Care Rug Backing Stenciler Name Role Phone Generic Provider, No Assigned Pcp MD Primary Car e Provider Unavailable Lee Ann Jimenez RN Unavailable Unavailable Tejas Morel MD Unavailable [phone] Aditi Kapoor Unavailable Unavailabl e Active Problems ProblemNoted DateDiagnosed DateRenal cell cancer, right01/26/2025nemia 01/26/2025Renal cell carcinoma of right lwfbdz1912/23/2024HTN (hypertension) 12/21/20243016Ptuamursilfcyr65/24/4934Lmrqkser61/21/2025 Current Treatment and Therapy Plans No current plan information found. Past Treatment and Therapy Plans No past plan information found. Lifetime Dose Tracking * ChemicalLifetime DoseAutomatic EntryManual EntryAir Kerma41.14 mGy41.14 mGy0 mGy
--- OUTSIDE RECORDS SUMMARY | 2025-09-04 15:20 | XMS_ITS | Encounter Summary ---
Author Organization [facility] Address [address] [place] [address] Phone Care Team Providers Care Forensic Psychologist Name Role Phone Generic Provider, No Assigned Pcp MD Primary Car e Provider Unavailable Lee Ann Jimenez RN Unavailable Unavailable Tejas Morel MD Unavailable [phone] Aditi Kapoor Unavailable Unavailabl e Encounter Details DateTypeDepartmentCare Team (Latest Contact Info)Ghelxzehedk27/05/2025Specialty Pharmacy [facility] [address] [place] [id number] Stephanie Benson, PharmD [address] [place] [address] Oncology 14 Day Assessment - dexamethasone, enoxaparin sodium (Lovenox), everolimus (Afinitor), lenvatinib mesylate (Lenvima) for Oncology Core Social History Tobacco UseTypesPacks/DayYears UsedDateSmoking Tobacco: NeverSmokeless Tobacco: NeverAlcohol UseStandard Drinks/WeekCommentsYes0 (1 standard drink = 0.6 oz pure alcohol)Overall Financial Resource Strain (CARDIA)AnswerDate RecordedHow hard is it for you to pay for the very basics like food, housing, medical care, and heating?Not hard at all01/28/2025PHQ-2AnswerDate RecordedPatient Health Questionnaire-2 Wpjgb503PRAPARE - TransportationAnswerDate RecordedIn the past 12 months, [...] were you homeless or living in a retirement (including now)?No01/28/2025 Humiliation, Afraid, Rape, and Kick questionnaireAnswerDate RecordedWithin the last year, have you been afraid of your partner or ex-partner?08/09/2025Within the last year, have you been humiliated or emotionally abused in other ways by your partner or ex-partner?08/09/2025Within the last year, have you been kicked, hit, slapped, or otherwise physically hurt by your partner or ex-partner?No08/09/2025Within the last year, have you been raped or forced to have any kind of sexual activity by your partner or ex-partner?08/09/2025 Social Connection and Isolation PanelAnswerDate RecordedIn a typical week, how many times do you talk on the phone with family, friends, or neighbors?Three times a week08/09/2025How often do you get together with friends or relatives? Once a week08/09/2025How often do you attend worship or taoist services?Never 08/09/2025Do you belong to any clubs or organizations such as worship groups, unions, fraternal or athletic groups, or school groups?No08/09/2025How often do you attend meetings of the clubs or organizations you belong to?Never08/09/2025 Are you , , , , never , or living with a partner?Uzdxdgxm44/10/2025UDIT-CAnswerDate RecordedQ1: How often do you have a drink containing alcohol?Monthly or less08/09/2025Q2: How many drinks containing alcohol do you have on a typical day when you are drinking?1 or Q3: How often do you have six or more drinks on one occasion?Never08/09/2025[facility] [place] [facility] - Occupational Stress QuestionnaireAnswerDate RecordedDo you feel stress - tense, restless, nervous, or anxious, or unable to sleep at night because yourmind is troubled all the time - these days?Only a fkjdpg3208/09/2025Exercise Vital SignAnswerDate RecordedOn average, how many days [...] were you homeless or living in a retirement (including now)?No 08/09/2025B1300 Health LiteracyAnswerDate RecordedHow often do you need to have someone help you when you read instructions, pamphlets, or other written material from your doctor or pharmacy?Never08/09/2025HC UtilitiesAnswerDate RecordedIn the past 12 months has the electric, gas, oil, or water company threatened to shut off services in your home?No08/09/2025Digital Health Equity ScreeningAnswerDate RecordedWhich of the following do you know how to use AND have access to every day? (choose all that apply)Desktop computer, laptop computer, or tablet with broadband internet connection;Smartphone with cellular data plan08/09/2025Requested supportNot on file08/09/2025CommentsNoSex and Gender InformationValueDate RecordedSex Assigned at BirthNot on fileLegal DxoWvwfze28/21/2025 1:40 PM EDTGender IdentityNot on fileSexual OrientationNot on filedocumented as of this encounter Progress Notes * Stephanie Benson, PharmD - 09/03/2025 8:50 AM EST [facility] Clinical Note Patient Reassessment Introduction Katelyn Cunningham is a 70 y.o. female who is on the specialty pharmacy service for management of: Oncology Core. [facility] supplied medication: Everolimus 5mg by mouth once daily and Lenvima 18mg by mouth once daily. Duration of therapy: Until drug toxicity or progression The most recent encounter visit with the referring prescriber Linnette Garcia MD was reviewed. Pharmacy will continue to collaborate in the care of this patient with the referring prescriber. Discussion Katelyn was contacted on 09/03/2025 at 8:51 AM for a pharmacy visit with from: [facility] [address] [place] [id number] Dept: [phone] Dept Katelyn consented to a/an Telephone visit, which was performed. Efficacy Patient has developed new symptoms of condition: No Patient/caregiver feels medication is affecting the disease state: Patient states that so far everything is going well with everolimus and Lenvima. However, she does have some side effects including fatigue, weakness, and constipation. Goals Provided education on goals and possible outcomes of therapy: Adherence with therapy Timely completion of appropriate labs Timely and appropriate follow up with provider Identify and address medication interactions with presciption medications, OTC medications and supplements Optimize or maintain quality of life Oncology: Prolong life/No disease progression Manage side effects (ex: nausea/vomiting, constipation, fatigue) in conjunction with care team Patient has documented target(s) for goals of therapy: No Patient status for goal(s): Additional details: Oncology patient - goals not yet defined. Tolerance Patient has experienced side effects from this medication: Yes - fatigue, weakness, and constipation Changes to current therapy regimen: No The follow-up timeline was discussed. Every person responds to and reacts to therapy differently. Patient should be assessed for efficacy and tolerability in approximately: 3 months Adherence Patient Information Informant: Self (Patient) Demonstrates Understanding of Importance of Adherence: Yes Does the patient have any barriers to self-administration (including physical and mental?): No Barriers to Self-Administration: None Action Taken to Mitigate Barriers for Self-Administration: N/A Medication Information Medication: everolimus (Afinitor) (Lenvima and everolimus) Patient Reported Missed Doses in the Last 4 Weeks: 0 Estimated Medication Adherence Level: Good Adherence Estimation Source: Claims history Barriers to Adherence: No Problems identified Action Taken to Address Barriers to Adherence: N/A What concerns do you have regarding your medications?: None The importance of adherence was discussed and patient/caregiver was advised to take the medication as prescribed by their provider. Encouraged patient/caregiver to call physician's office or specialty pharmacy if they have a question regarding a missed dose. General Assessment Changes to home medications, OTCs or supplements: No Current Medications[1] Reported new allergies: No Reported new medical conditions: No Additional monitoring reviewed: Oncology - CBC-diff: Lab Results Component Value Date WBC 6.8 02/02/2025 RBC 3.54 (L) 02/02/2025 HGB 9.1 (L) 02/02/2025 HCT 30.2 (L) 02/02/2025 MCV 85 02/02/2025 MCHC 30.1 (L) 02/02/2025 PLT 256 02/02/2025 RDW 15.8 (H) 02/02/2025 NEUTOPHILPCT 69.2 12/30/2024 IGPCT 5.3 (H) 12/31/2024 LYMPHOPCT 16.4 12/31/2024 MONOPCT 6.9 12/31/2024 EOSPCT 1.7 12/31/2024 BASOPCT 0.9 12/31/2024 NEUTROABS 8.81 (H) 12/30/2024 LYMPHSABS 2.03 12/30/2024 MONOSABS 1.23 (H) 12/30/2024 EOSABS 0.19 12/31/2024 BASOSABS 0.10 12/31/2024 and CMP: Lab Results Component Value Date GLUCOSE 94 02/02/2025 NA 137 02/02/2025 K 3.7 02/02/2025 CL 104 02/02/2025 CO2 24 02/02/2025 ANIONGAP 13 02/02/2025 BUN 11 02/02/2025 CREATININE 1.06 (H) 02/02/2025 CALCIUM 8.3 (L) 02/02/2025 ALBUMIN 3.1 (L) 02/02/2025 ALKPHOS 70 02/02/2025 PROT 5.6 (L) 02/02/2025 AST 16 02/02/2025 BILITOT 0.7 02/02/2025 ALT 17 02/02/2025 Is laboratory follow up needed? Yes - patient will be completing new labs next week Advised to contact the pharmacy if there are any changes to the patient's medication list, including prescriptions, OTC medications, herbal products, or supplements. Impression/Plan This patient has been identified as high risk due to Geriatric (over 65 years of age). The following action was taken:Patient/caregiver encouraged to participate in patient management program QOL/Patient Satisfaction Rate your quality of life on scale of 1-10: (Deferred) Rate your satisfaction with Specialty Pharmacy on scale of 1-10: (Deferred) Provided contact information ([phone]) for [facility] and revieweddispensing process, refill timeline and patient management follow up. Confirmed understanding of education conducted during assessment. All questions and concerns were addressed and patient/caregiverwas encouraged to reach out for additional questions or concerns. Based on the patient's diagnosis, medication list, progress towards goals, adherence, tolerance, and medication list, medication remains appropriate: Therapy remains appropriate (I attest) Stephanie Benson, PharmD [1] Current Outpatient Medications Medication Sig Dispense Refill acetaminophen (Tylenol) 325 mg tablet Take 2 tablets (650 mg) by mouth every 6 hours. (Patient not taking: Reported on 08/09/2025) amLODIPine (Norvasc) 10 mg tablet TAKE 1 TABLET BY MOUTH ONCE DAILY. DO NOT FILL BEFORE FEBRUARY 03 tablet 1 dexAMETHasone 0.5 mg/5 mL oral liquid SWISH 10 ML FOR 2 MINUTES THEN SPIT FOUR TIMES DAILY FOR AT LEAST FIRST 8 WEEKS OF TREATMENT 1200 mL 1 enoxaparin (Lovenox) 40 mg/0.4 mL syringe Inject 0.4 mL (40 mg) under the skin once daily. 21 each 0 everolimus (Afinitor) 5 mg tablet Take 1 tablet (5 mg) orally daily 28 tablet 2 lenvatinib 18 mg daily dose (Lenvima) 10 mg & 2 x 4 mg capsule therapy pack Take 1-10 mg capsule with 2-4 mg capsules together (18 mg total dose) by mouth daily for 30 days 90 capsule 2 multivitamin tablet Take 1 tablet by mouth once daily. pantoprazole (ProtoNix) 40 mg EC tablet Take 1 tablet (40 mg) by mouth once daily in the morning. Take before meals. Do not crush, chew, or split. 30 tablet 11 polyethylene glycol (Glycolax, Miralax) 17 gram packet Take 17 g by mouth once daily. (Patient not taking: Reported on 08/09/2025) sennosides-docusate sodium (Belen-Colace) 8.6-50 mg tablet Take 2 tablets by mouth 2 times a day. (Patient not taking: Reported on 08/09/2025) No current facility-administered medications for this visit. documented in this encounter Plan of Treatment Not on file documented as of this encounter Visit Diagnoses Not on filedocumented in this encounter Care Teams Team MemberRelationshipSpecialtyStart DateEnd Date Generic Provider, No [place] [address] PCP - GeneralGeneral Practice01/25/25 Lee Ann Jimenez, SOLANGE Nurse NavigatorHematology and Cxfhwxup92/6/25 [place] [address] [place] [address] Consulting PhysicianHematology and Zcyvfsuy22/7/25 Aditi Kapoor LISW-S Social WorkerSocial Ptpcgaxb59/12/25documented as of this encounter
--- OUTSIDE RECORDS SUMMARY | 2025-09-04 15:20 | XMS_ITS | Encounter Summary ---
Author Organization [facility] Address [address] [place] [address] Care Team Providers Care Charter Pilot Name Role Phone Maxine Lake MD Unavailable [phone] Lester Rodriguez DO Primary Care Provider + [phone] Encounter Details DateTypeDepartmentCare Team (Latest Contact Info)Vmfgntqhulr87/24/2025External Result Encounter [facility] Unsolicited Linnette Garcia MD [address] [place] [address] Social History Tobacco UseTypesPacks/DayYears UsedDateSmoking Tobacco: NeverSmokeless Tobacco: NeverAlcohol UseStandard Drinks/WeekCommentsNot Currently1 (1 standard drink = 0.6 oz pure alcohol)CommentsNoSex and Gender InformationValueDate RecordedSex Assigned at BirthNot on fileLegal ZztCljxko49/15/2023 7:12 PM EDT Gender IdentityNot on fileSexual OrientationNot on filedocumented as of this encounter Plan of Treatment Not on file documented as of this encounter Procedures Procedure NamePriorityDate/TimeAssociated DiagnosisCommentsECG 12-LEAD08/23/2025 1:26 PM EST documented in this encounter Results * ECG 12 lead (08/23/2025 1:26 PM EST)Specimen (Source)Anatomical Location / LateralityCollection Method / VolumeCollection TimeReceived Time08/23/2025 1:26 PM EST [facility] [place] - 08/23/2025 6:27 PM EST [facility] ?[facility] [place] ?[address] ? [place] [address] ? Electrocardiograph Report ? Signed ? Patient: Christopher,Katelyn K ?MR#: [id number] ?? [id number] ? : 1955 ?Acct:[id number] ? Age/Sex: 70 / F ?ADM Date: [...] ECGs available ?? Confirmed by Nile Ordonez ([id number]) on 08/23/2025 6:27:17 PM ? Referred By: Marvin Lopez ? Electronically Signed By: Nile Ordonez ? Transcribed By: ? MUS ? Signed By ? Nile Ordonez MD ?08/23/251826 Procedure Note Nile Ordonez MD - 08/23/2025 [facility] [place] [address] [place] [address] Electrocardiograph Report Signed Patient: Katelyn Cunningham KMR#: [id number] : 1955cct:[id number] Age/Sex: 70 / FADM Date: 08/23/25 Loc: Room:Type: [facility] Attending Dr: Linnette Garcia MD Ordering Provider: [...] previous ECGs available Confirmed by Nile Ordonez ([id number]) on 08/23/2025 6:27:17 PM Referred By: Marvin Lopez Electronically Signed By: Zev Transcribed By: MUS Signed By Nile Ordonez MD 08/23/251826 Authorizing ProviderResult TypeResult StatusLinnette Garcia MDECG ORDERABLESFinal ResultPerforming OrganizationAddressCity/State/ZIP CodePhone Number [address] [address], documented in this encounter Visit Diagnoses Not on filedocumented in this encounter Care Teams Team MemberRelationshipSpecialtyStart DateEnd Date Lester Rodriguez DO [address] [place] [address] PCP - GeneralFamily Zmoiifti00/17/24 Maxine Lake MD [address] [facility] [address] [place] [id number] Referring PhysicianFamily Medicine06/25/24documented as of this encounter
[2025-09-04 15:33] LABS: Alanine Aminotransferase 17 U/L (14-59); Albumin Globulin Ratio 0.4; Albumin Level 1.7 g/dL (3.4-5.0); Alkaline Phosphatase 134 U/L (46-116); Anion Gap 17.1; Aspartate Amino Transferase 24 U/L (15-37); Blood Urea Nitrogen 30.0 mg/dL (7.0-18.0); Calcium 8.2 mg/dL (8.5-10.1); Carbon Dioxide 22.0 mmol/L (21.0-32.0); Chloride 103 mmol/L (98-107); Estimated GFR (African America 42 (>=60 mL/min/1.73m^2); Estimated GFR (Non-African Ame 34 (>=60 mL/min/1.73m^2); Globulin 4.4 g/dL; Glucose 95 mg/dL (74-106); Potassium 4.1 mmol/L (3.5-5.1); Sodium 138 mmol/L (136-145); Total Protein 6.1 g/dL (6.4-8.2)
[2025-09-04 17:26] LABS: Glucose Urine UA NEGATIVE (NEGATIVE)
[2025-09-04] MEDS: 0.9 % SODIUM CHLORIDE 500 ML IV (17:30)
[2025-09-04 17:33] LABS: Cast Seen? NONE SEEN #/LPF (NONE SEEN); Crystals Seen? None Seen #/HPF (None Seen)
== END 2025-09-04 18:40 | disposition home or self-care (01) ==
PROVIDERS: Emergency Provider Emergency Medicine
DX: R53.1 Weakness (principal); C64.9 Malignant neoplasm of unspecified kidney, except renal pelvis; Z79.60 Long term (current) use of unspecified immunomodulators and immunosuppressants
CPT/HCPCS: 36415; 71045; 80048; 80076; 81001; 85025; 93005; 96374; 99284; 99285; J2405